=== PATIENT | male | born 1995 | race Caucasian/White ===

== ENCOUNTER 2017-02-10 18:18 | Emergency (ER) | payer BC, MEDICAID ==
--- NOTE | 2017-02-10 19:26 | RAD ---
HISTORY: Chest wall mass COMPARISONS: None TECHNIQUE: Multiple contiguous axial CT scans of the chest were obtained without intravenous contrast. Coronal and sagittal multiplanar reformations are also submitted for review. FINDINGS: The study is limited by the lack of intravenous contrast. This limits evaluation of the solid organs and vasculature. NECK AND THYROID: The lower neck and thyroid are unremarkable. CHEST WALL: There is no lower cervical, axillary, or supraclavicular lymphadenopathy by size criteria. HEART AND PERICARDIUM: The heart is unremarkable. AORTA AND PULMONARY VASCULATURE: The aorta and pulmonary vasculature are normal. MEDIASTINUM: There is no mediastinal lymphadenopathy by size criteria. ANDI: There is no hilar lymphadenopathy by size criteria. AIRWAY AND ESOPHAGUS: The airway is unremarkable, without endobronchial filling defect. The esophagus is grossly normal. LUNG PARENCHYMA: The lungs are clear. PLEURA: There is a trace right pleural effusion UPPER ABDOMEN: There is mild bilateral pelviectasis BONES AND SOFT TISSUES: There is mild scoliotic curvature of the spine. There is a pectus carinatum deformity with acute angulation of the lower sternum which may be posttraumatic versus congenital. There is no appreciable soft tissue mass of the anterior chest. OTHER: None. IMPRESSION: 1. PECTUS CARINATUM DEFORMITY WITH ACUTE ANGULATION OF THE LOWER STERNUM WHICH MAY BE REMOTE POST TRAUMATIC VERSUS CONGENITAL IN NATURE. NO SOFT TISSUE MASS OF THE ANTERIOR CHEST WALL. A NEGATIVE REPORT SHOULD NOT PRECLUDE OR DELAY THE EVALUATION OF A CLINICALLY SUSPICIOUS PALPABLE ABNORMALITY 2. MILD BILATERAL HYDRONEPHROSIS. 3. TRACE RIGHT PLEURAL EFFUSION.
--- NOTE | 2017-02-10 20:04 | ED ---
Victor Hugo Oates Adam, scribed for Caitlyn Painter MD on 02/10/17 at 1844 . Complex/Multi-Sys Presentation - HPI Summary HPI Summary: Pt is a 21 year old male presenting with AMS and an increased mass on his chest. The pt is autistic and nonverbal and the hx was obtained from the caretakers from his skilled nursing. They state that the pt has a lump protruding from his chest that is usually there but is protruding more than usual. They also state that the pt is acting "calmer than usual." Negative tobacco/alcohol use. - History Of Current Complaint Chief Complaint: EDHypertension Time Seen by Provider: 02/10/17 18:24 Hx Obtained From: Family/Commercial Census Taker - Caretakers Hx From Patient Unobtainable Due To: Other - Level 5 Caveat due to autistic patient Onset/Duration: Gradual Onset, Lasting Hours, Still Present Timing: Constant Severity Currently: Moderate Severity Initially: Moderate Character: Unable To Describe - Patient is nonverbal Aggravating Factor(s): Unknown Alleviating Factor(s): Nothing Associated Signs And Symptoms: Positive: Other - Mass over ribcage. Patient acting "calmer than usual." PMH/Surg Hx/FS Hx/Imm Hx Psychiatric History: Reports: Hx Autism Infectious Disease History: Denies: Traveled Outside the [place] in Last 30 Days - Family History Known Family History: Positive: Unknown - Level 5 Caveat due to autism - Social History Occupation: Disabled Lives: [facility] Alcohol Use: None Hx Substance Use: No Substance Use Type: Reports: None Hx Tobacco Use: No Smoking Status (MU): Never Smoked Tobacco Review of Systems Positive: Other - Mass over ribcage Psychological: Other - Acting "calmer than usual" (per fuselage framer) All Other Systems Reviewed And Are Negative: No - Comments Additional Review of Systems Comments: Level 5 Caveat due to autistic patient. Physical Exam Triage Information Reviewed: Yes Vital Signs On Initial Exam: Initial Vitals Temp Pulse Resp BP Pulse Ox 98.3 F 76 18 140/106 97 02/10/17 18:21 02/10/17 18:21 02/10/17 18:21 02/10/17 18:21 02/10/17 18:21 Vital Signs Reviewed: Yes Completion Of Physical Exam Limited Due To: Level 5 - Autism Appearance: Positive: Well-Appearing, No Pain Distress Skin: Positive: Warm, Skin Color Reflects Adequate Perfusion, Dry Eyes: Positive: EOMI, AYAKA ENT: Positive: Pharynx normal, TMs normal Neck: Positive: Supple, Nontender Respiratory/Lung Sounds: Positive: Clear to Auscultation, Breath Sounds Present. Negative: Rales, Rhonchi, Wheezes Cardiovascular: Positive: RRR. Negative: Murmur, Rub Abdomen Description: Positive: Nontender, Soft. Negative: Distended, Guarding Bowel Sounds: Positive: Present Musculoskeletal: Positive: Strength/ROM Intact, Other - 9 cm x 4 cm mass over the ribcage, just medial to the left nipple at the height of the nipple.. Negative: Edema Left, Edema Right Neurological: Positive: Other - Autistic Psychiatric: Positive: Affect/Mood Appropriate Diagnostics - Vital Signs Vital Signs Temp Pulse Resp BP Pulse Ox 02/10/17 18:21 98.3 F 76 18 140/106 97 - Laboratory Lab Statement: Any lab studies that have been ordered have been reviewed, and results considered in the medical decision making process. - CT CHEST CT Interpretation Completed By: Radiologist - IMPRESSION: 1. PECTUS CARINATUM DEFORMITY WITH ACUTE ANGULATION OF THE LOWER STERNUM WHICH MAY BE REMOTE POST TRAUMATIC VERSUS CONGENITAL IN NATURE. NO SOFT TISSUE MASS OF THE ANTERIOR CHEST WALL. A NEGATIVE REPORT SHOULD NOT PRECLUDE OR DELAY THE EVALUATION OF A CLINICALLY SUSPICIOUS PALPABLE ABNORMALITY 2. MILD BILATERAL HYDRONEPHROSIS. 3. TRACE RIGHT PLEURAL EFFUSION. Complex Multi-Symp Course/Dx Course Of Treatment: 19:56 - Bilateral hydronephrosis is found. Waiting on labs and urine. Patient will be signed out to Dr. Maya. - Diagnoses Provider Diagnoses: Pectus carinatum Discharge - Discharge Plan Condition: Stable Disposition: OTHER Discharge Disposition Comment: Sign out to Dr. Maya, pending labs and urine. Referrals: Sissy TODD,Blayne Waller [Primary Care Provider] - Additional Instructions: Follow up with Dr. Sheehan this week. The documentation as recorded by the Victor Hugo stoner Adam accurately reflects the service I personally performed and the decisions made by me, Caitlyn Painter MD.
[2017-02-10 20:54] LABS: Hematocrit 40 % (42-52); Mean Corpuscular HGB Conc 35 g/dl (31-36); Mean Corpuscular Hemoglobin 30 pg (27-31); Mean Corpuscular Volume 87 fL (80-94); Mean Platelet Volume 9 um3 (7.4-10.4); Red Blood Count 4.64 10^6/ul (4.0-5.4); Red Cell Distribution Width 12 % (10.5-15); White Blood Count 8.7 10^3/ul (3.5-10.8)
[2017-02-10 20:57] LABS: Urine Bilirubin Negative (Negative); Urine Glucose Negative (Negative); Urine Nitrite Negative (Negative)
[2017-02-10 21:06] LABS: Albumin 4.6 g/dL (3.2-5.2); BUN/Creatinine Ratio 10.8 (8-20); Calcium 10.2 mg/dL (8.6-10.3); EGFR African American 195.8 (>60); EGFR Non-African American 152.2 (>60); Globulin 2.7 g/dL (2-4); Potassium 3.9 mmol/L (3.5-5.0); Total Bilirubin 0.6 mg/dL (0.2-1.0); Total Protein 7.3 g/dL (6.4-8.9)
[2017-02-10 21:46] VITALS: BP 156/110
== END 2017-02-10 21:44 | disposition home or self-care (01) ==
LOC: ED 18:18
DX: Q67.7 Pectus carinatum (principal); N13.30 Unspecified hydronephrosis; J90 Pleural effusion, not elsewhere classified; R41.82 Altered mental status, unspecified; R07.9 Chest pain, unspecified; F84.0 Autistic disorder
CPT/HCPCS: 36415; 71250; 80053; 81003; 85025; 99282

== ENCOUNTER 2017-02-17 01:33 | Inpatient (IN) | payer BC, MEDICAID ==
[2017-02-17 02:02] LABS: Comments Flag Yes; Hematocrit 43 % (42-52); Hemoglobin 14.4 g/dl (14.0-18.0); Mean Corpuscular HGB Conc 34 g/dl (31-36); Mean Corpuscular Hemoglobin 30 pg (27-31); Mean Corpuscular Volume 89 fL (80-94); Mean Platelet Volume 8 um3 (7.4-10.4); Red Blood Count 4.76 10^6/ul (4.0-5.4); Red Cell Distribution Width 13 % (10.5-15)
[2017-02-17 02:03] LABS: Add Diff/Slide Review? Slide Review Added
--- NOTE | 2017-02-17 02:03 | ED ---
Julianne Oates Erika, scribed for Jac Maya MD on 02/17/17 at 0158 . Neurological HPI - HPI Summary HPI Summary: A 21 y/o M presents to the ED with a CC of seizures. Per EMS, pt lives at [facility]. They state pt fell out of bed and had 3 witnessed seizures tonight, and has a Hx seizures. EMS gave versed 5 mg. Patient is non-verbal with severe autism. LEVEL 5 CAVEAT - NON-VERBAL. - History of Current Complaint Stated Complaint: SEIZURE Time Seen by Provider: 02/17/17 01:34 Hx Obtained From: EMS Hx From Patient Unobtainable Due To: Other - Pt non-verbal - severe autism Onset/Duration: Sudden Onset Number of Seizures: 3 - Allergy/Home Medications Allergies/Adverse Reactions: Allergies Allergy/AdvReac Type Severity Reaction Status Date / Time Clarithromycin [From Biaxin] Allergy Unknown Verified 02/17/17 02:05 Reaction Details Home Medications: Home Medications Acetaminophen [Tylenol] 650 mg PO Q4HR PRN 02/17/17 [History Confirmed 02/17/17] Cetirizine HCl [Zyrtec Allergy 10 MG TAB] 10 mg PO BEDTIME 02/17/17 [History Confirmed 02/17/17] Clonidine HCl [Catapres 0.2 MG TAB] 0.2 mg PO BID 02/17/17 [History Confirmed ] Divalproex Sodium [Depakote Sprinkles] 500 mg PO TID 02/17/17 [History Confirmed 02/17/17] Lisinopril TAB* [Prinivil TAB*] 10 mg PO DAILY 02/17/17 [History Confirmed 02/17] Polyethylene Glycol 3350* [Miralax*] 17 gm PO DAILY PRN 02/17/17 [History Confirmed 02/17/17] busPIRone TAB* [Buspar TAB*] 10 mg PO TID 02/17/17 [History Confirmed 02/17/17] risperiDONE TAB* [Risperdal*] 1 mg PO BID 02/17/17 [History Confirmed 02/17/17] PMH/Surg Hx/FS Hx/Imm Hx Cardiovascular History: Reports: Hx Hypertension EENT History: Reports: Other - Allergic rhinitis Neurological History: Reports: Hx Seizures Psychiatric History: Reports: Hx Autism - Family History Family History: LEVEL 5 CAVEAT - NON-VERBAL SECONDARY TO AUTISM - Social History Occupation: Disabled Lives: At [facility] [employer] Alcohol Use: None Hx Substance Use: No Substance Use Type: Reports: None Hx Tobacco Use: No Smoking Status (MU): Never Smoked Tobacco Review of Systems - ROS Summary Review of Systems Summary: LEVEL 5 CAVEAT - NON-VERBAL SECONDARY TO AUTISM Neurological: Other - Seizures All Other Systems Reviewed And Are Negative: No Physical Exam Triage Information Reviewed: Yes Vital Signs On Initial Exam: Temp Pulse Resp BP Pulse Ox 99.2 F 104 23 144/84 94 02/17/17 01:35 02/17/17 01:35 02/17/17 01:35 02/17/17 01:35 02/17/17 01:35 Vital Signs Reviewed: Yes Appearance: Positive: Ill-Appearing - non verbal, post ictal Head/Face: Positive: Normal Head/Face Inspection Eyes: Positive: AYAKA Respiratory/Lung Sounds: Positive: Clear to Auscultation, Breath Sounds Present Cardiovascular: Positive: RRR Abdomen Description: Positive: Soft Bowel Sounds: Positive: Present Diagnostics - Vital Signs Vital Signs Temp Pulse Resp BP Pulse Ox 02/17/17 01:35 99.2 F 104 23 144/84 94 - Laboratory Result Diagrams: 02/17/17 01:50 02/17/17 01:50 Lab Statement: Any lab studies that have been ordered have been reviewed, and results considered in the medical decision making process. - Radiology CXR Xray Interpretation: No Acute Changes Radiology Interpretation Completed By: ED Physician - EKG 01:37 Cardiac Rate: Tachycardia - at 107 bpm EKG Rhythm: Sinus Tachycardia Re-Evaluation - Re-Evaluation First Eval Re-Evaluation Time: 06:10 Comment: Pt is febrile. Ordered CXR. UA to be obtained. Course/Dx - Course Assessment/Plan: A 21 y/o M presents to the ED with a CC of 3 seizures. Patient is non-verbal, so history is provided by EMS. Patient is observed in the ED and does not have another seizure. Patient is given Trileptal per Dr. Garcia's recommendation. Pt has a fever in the ED, so is given Tylenol and CXR and UA must be obtained. CXR is negative. UA is pending at this time. Patient is signed out pending UA and disposition. - Diagnoses Provider Diagnoses: Seizure disorder, Fever, Post-ictal state - Physician Notifications Discussed Care of Patient With: Dr. Garcia (neurology) at 03:18 - discussed patient's case. Recommends adding trileptal. Discharge - Discharge Plan Condition: Stable Disposition: ADMITTED TO [facility] Discharge Disposition Comment: Signed out to Dr. Juarez pending UA and disposition The documentation as recorded by the Julianne stoner Erika accurately reflects the service I personally performed and the decisions made by me, Jac Maya MD.
[2017-02-17 02:19] LABS: Albumin 4.7 g/dL (3.2-5.2); BUN/Creatinine Ratio 11.6 (8-20); EGFR African American 182.7 (>60); EGFR Non-African American 142.1 (>60); Globulin 2.9 g/dL (2-4); Magnesium 1.7 mg/dL (1.9-2.7); Potassium 3.5 mmol/L (3.5-5.0); Total Bilirubin 0.3 mg/dL (0.2-1.0); Total Protein 7.6 g/dL (6.4-8.9)
[2017-02-17] MEDS ORDERED: Acetaminophen SUPP* 650 MG SUPP PR ONE (05:03)
[2017-02-17] MEDS ORDERED: OXcarbazepine TAB(*) 300 MG PO ONE (06:12)
--- NOTE | 2017-02-17 07:53 | RAD ---
Indication: Fever. 2 views of the chest including dual energy PA views demonstrate no mediastinal shift. Heart is normal size and configuration. Lung lou demonstrate no pleural fluid, pneumonia or pneumothorax. IMPRESSION: No active cardiopulmonary disease is noted.
[2017-02-17] MEDS ORDERED: Ibuprofen TAB* 600 MG PO ONE (08:11)
[2017-02-17 08:21] LABS: Urine Bacteria Absent (Absent); Urine Bilirubin Negative (Negative); Urine Glucose 1+(50 mg/dL) (Negative); Urine Nitrite Negative (Negative)
[2017-02-17] MEDS ORDERED: Ibuprofen ADULT LIQ* 600 MG/30 ML UDC PO ONE (08:51)
[2017-02-17] MEDS ORDERED: NS 0.9% 1000 ML* 3,000 ML IV ONE (09:23)
--- NOTE | 2017-02-17 10:35 | ED ---
Victor Hugo Oates Adam, scribed for Ovidio Juarez MD on 02/17/17 at 0928 . Progress - Progress Note Progress Note: This patient was signed out to me by Dr. Maya at 07:00. UA was pending. Pt had 3 or 4 seizures at his [place] [facility]. He is on Depakote. Level is elevated. Case was discussed with Dr. Garcia. Another agent (apparently trileptal) was started. Pt remained post-ictal during hospital stay and developed a fever. Chest X-Ray was read as normal. Urine was clean. I evaluated the pt at 09:05 with the pt's parents. They were concerned because he was not acting normal. They were also concerned about drainage from the pt's eyes. Physical exam: Patient is uncooperative, appears post-ictal, restless. Pupils equal, eyes injected, clear drainage from eyes. No rashes. Heart regular. Lungs clear. Course: Contacted hospitalist for possible admission. Discussed care of patient with Sivakumar Peres (hospitalist) at 09:20. Patient will be admitted. Re-Evaluation - Re-Evaluation First Eval Re-Evaluation Time: 06:10 Comment: Pt is febrile. Ordered CXR. UA to be obtained. Course/Dx - Diagnoses Provider Diagnoses: Seizure disorder, Fever, Post-ictal state The documentation as recorded by the Victor Hugo stoner Adam accurately reflects the service I personally performed and the decisions made by me, Ovidio Juarez MD.
[2017-02-17] MEDS ORDERED: Polyethylene Glycol 3350* 17 GM PACKET PO PRN (11:17)
--- NOTE | 2017-02-17 11:49 | ADMNOTE ---
Subjective Date of Service: 02/17/17 Interval History: ADMISSION HISTORY AND PHYSICAL EXAM: Allergies Allergy/AdvReac Type Severity Reaction Status Date / Time Clarithromycin [From Biaxin] Allergy Unknown Verified 02/17/17 02:05 Reaction Details Home Medications Medication Instructions Recorded Confirmed Type Acetaminophen [Tylenol] 650 mg PO Q4HR PRN 02/17/17 02/17/17 History Cetirizine HCl [Zyrtec Allergy 10 10 mg PO BEDTIME 02/17/17 02/17/17 History MG TAB] Clonidine HCl [Catapres 0.2 MG TAB] 0.2 mg PO BID 02/17/17 02/17/17 History Divalproex Sodium [Depakote 500 mg PO TID 02/17/17 02/17/17 History Sprinkles] Lisinopril TAB* [Prinivil TAB*] 10 mg PO DAILY 02/17/17 02/17/17 History Oxcarbazepine [Trileptal 300 mg 300 mg PO BID PRN #30 tab 02/17/17 Rx tab] Polyethylene Glycol 3350* 17 gm PO DAILY PRN 02/17/17 02/17/17 History [Miralax*] busPIRone TAB* [Buspar TAB*] 10 mg PO TID 02/17/17 02/17/17 History risperiDONE TAB* [Risperdal*] 1 mg PO BID 02/17/17 02/17/17 History HPI: The patient had several [facility] at his [facility] and was sent to the ED by ambulance. He has had seizures for years. For the past 2 weeks he seems to be uncomfortable. He is non-verbal. He rubs one leg on the other, mostly on the L leg. He had a CT scan at [facility] recently on "his side". He sees a neurologist in [place] and a PCP in [place], Dr. Kaur. He is losing weight, unknown amount. He developed in the past few weeks polydipsia, over a gallon at a time, using the bathroom faucet. Family History: Findings - DM. Social History: Findings - Lives in [facility]. Both parents are SDM's. No alcohol or tobacco use. Past Medical History: Findings - BL IHR age 3 months. Autism. Seizures. Pilonidal cyst removed. Review of Systems - Measurements Intake and Output: Intake and Output Last 24 Hours 02/15/17 02/16/17 02/17/17 02/18/17 06:59 06:59 06:59 06:59 Weight 240 lb Objective Active Medications: Buspirone HCl (Buspar Tab*) 10 mg PO TID [facility] Divalproex Sodium (Depakote Sprinkle Cap*) 500 mg PO TID [facility] Sodium Chloride (Ns 0.9% 1000 Ml*) 3,000 mls @ 1,000 mls/hr IV ED ONCE ONE Stop: 02/17/17 12:22 Last Admin: 02/17/17 09:35 Dose: 1,000 mls/hr Piperacillin Sod/Tazobactam Sod (Zosyn 3.375 Gm In Ns Premix*) 3.375 gm in 100 mls @ 200 mls/hr IVPB .ONCE-THEN Rx DOSING [facility] Lisinopril (Prinivil Tab*) 10 mg PO DAILY [facility] Non-Formulary Medication (Clonidine Hcl [Catapres 0.2 Mg Tab]) 0.1 mg PO BID [facility] Non-Formulary Medication (Cetirizine Hcl [Zyrtec Allergy 10 Mg Tab]) 10 mg PO BEDTIME [facility] Oxcarbazepine (Trileptal Tab(*)) 300 mg PO BID [facility] Polyethylene Glycol/Electrolytes (Miralax*) 17 gm PO DAILY PRN PRN Reason: CONSTIPATION Risperidone (Risperdal*) 1 mg PO BID [facility] Vital Signs 02/17/17 02/17/17 02/17/17 01:35 01:45 02:00 Temperature 99.2 F 100.0 F Pulse Rate 104 82 Respiratory 23 14 Rate Blood Pressure 144/84 151/82 151/82 (mmHg) O2 Sat by Pulse 94 97 Oximetry 02/17/17 02/17/17 02/17/17 02:01 02:30 03:00 Temperature Pulse Rate 96 97 86 Respiratory 15 18 14 Rate Blood Pressure 133/79 120/89 (mmHg) O2 Sat by Pulse 93 97 96 Oximetry 02/17/17 02/17/17 02/17/17 03:30 04:00 04:30 Temperature Pulse Rate 85 86 89 Respiratory 13 15 7 Rate Blood Pressure 136/90 115/73 110/71 (mmHg) O2 Sat by Pulse 96 94 95 Oximetry 02/17/17 02/17/17 02/17/17 05:00 05:30 06:00 Temperature 102.9 F 100.9 F Pulse Rate 89 90 98 Respiratory 15 16 Rate Blood Pressure 120/71 139/76 116/64 (mmHg) O2 Sat by Pulse 96 95 96 Oximetry 02/17/17 02/17/17 07:00 08:00 Temperature 101.0 F Pulse Rate 91 Respiratory 15 Rate Blood Pressure (mmHg) O2 Sat by Pulse 95 Oximetry Oxygen Devices in Use Now: None Appearance: Alert, extremely brief eye contact. Very restless, sits up, lies down, turns, rubs one leg on the other, never stops. No vocalizations. Eyes tearing at times. Eyes: No Scleral Icterus Neck: NL Appearance and Movements; NL JVP, No Thyroid Enlargement, Masses Respiratory: Symmetrical Chest Expansion and Respiratory Effort, Clear to Auscultation, Clear to Percussion Cardiovascular: NL Sounds; No Murmurs; No JVD, RRR, No Edema, - Abdominal: NL Sounds; No Tenderness; No Distention, No Hepatosplenomegaly, - - No tenderness to deep palpation. Extremities: No Edema, No Clubbing, Cyanosis Skin: No Nodules or Sclerosis, - - minor old contusion R lower leg Neurological: NL Sensation, NL Muscle Strength and Tone, - - Non-verbal, ignores his parents and me. No tremor. Very restless--see appearance. Result Diagrams: 02/17/17 01:50 02/17/17 01:50 Microbiology and Other Data: Microbiology 02/17/17 11:05 Influenza Types A,B Antigen (CARLOS) - Final Nasal Specimen received for Influenza A/B Molecular testing Assess/Plan/Problems-Billing Assessment: - Patient Problems (1) Seizure Current Visit: Yes Status: Acute Code(s): R56.9 - UNSPECIFIED CONVULSIONS SNOMED Code(s): 42834597 Comment: Discussed with Dr. Garcia. Add oxcarbenzapine, first dose AM 02/17, continue same dose valproic acid. (2) Fever Current Visit: Yes Status: Acute Code(s): R50.9 - FEVER, UNSPECIFIED SNOMED Code(s): 828217478 Comment: Note increase in WBC c/w 02/10/17. ??? sinusitis. Empiric pip/chloe for 2 days. Blood C&S x 2 sent. Consider oral amox/clav after 2 days. Further testing likely would require sedation. (3) Polydipsia Current Visit: Yes Status: Acute Code(s): R63.1 - POLYDIPSIA SNOMED Code(s ): 41084140 Comment: Recent change. So far no hyponatremia. As this may be evolivng, would suggest weekly BMP for a few weeks after discharge. (4) Autism Current Visit: Yes Status: Acute Code(s): F84.0 - AUTISTIC DISORDER SNOMED Code(s): 419339577 Comment: Dx noted, per parents. (5) Hyperglycemia Current Visit: Yes Status: Acute Code(s): R73.9 - HYPERGLYCEMIA, UNSPECIFIED SNOMED Code(s): 40922089 Comment: Possibly related to stress. FS glucose on arrival at 4N 99, will check bid.
[2017-02-17 11:54] LABS: TSH (Thyroid Stimulating Horm) 3.1 mcIU/mL (0.34-5.60)
[2017-02-17] MEDS ORDERED: Piperac/Tazob 3.375 gm in NS* 3.375 GM/100 ML BAG IVPB ONE (13:00)
[2017-02-17] MEDS: busPIRone TAB* 10 MG PO SCH ×2 (14:25→21:21)
[2017-02-17] MEDS: Divalproex Sprinkle CAP* 125 MG PO SCH ×2 (14:26→21:28)
[2017-02-17] MEDS: Acetaminophen TAB* 325 MG PO SCH ×2 (16:31→21:19)
[2017-02-17] MEDS: Naphazoline/Pheniramine OPTH* 5 ML BTL BOTH EYES SCH ×2 (16:31→21:15)
[2017-02-17] MEDS: Piperac/Tazob 3.375 gm in NS* 3.375 GM/100 ML BAG IVPB SCH (17:40)
[2017-02-17] MEDS: Cetirizine* 10 MG TAB PO SCH (21:17)
[2017-02-17] MEDS: OXcarbazepine TAB(*) 300 MG PO SCH (21:18)
[2017-02-17] MEDS: cloNIDine TAB* 0.1 MG PO SCH (21:18)
[2017-02-17] MEDS: risperiDONE TAB* 1 MG PO SCH (21:21)
[2017-02-18] MEDS: Piperac/Tazob 3.375 gm in NS* 3.375 GM/100 ML BAG IVPB SCH ×3 (02:33→18:02)
[2017-02-18] MEDS: cloNIDine TAB* 0.1 MG PO SCH ×2 (08:15→19:41)
[2017-02-18] MEDS: busPIRone TAB* 10 MG PO SCH ×3 (08:15→19:41)
[2017-02-18] MEDS: OXcarbazepine TAB(*) 300 MG PO SCH ×2 (08:15→19:41)
[2017-02-18] MEDS: Lisinopril TAB* 10 MG PO SCH (08:15)
[2017-02-18] MEDS: Naphazoline/Pheniramine OPTH* 5 ML BTL BOTH EYES SCH ×4 (08:15→19:41)
[2017-02-18] MEDS: risperiDONE TAB* 1 MG PO SCH ×2 (08:15→19:41)
[2017-02-18] MEDS: Divalproex Sprinkle CAP* 125 MG PO SCH ×2 (08:15→13:35)
[2017-02-18] MEDS: Acetaminophen TAB* 325 MG PO SCH (08:15)
[2017-02-18] MEDS ORDERED: Acetaminophen TAB* 325 MG PO PRN (08:52)
--- NOTE | 2017-02-18 09:29 | PN ---
Subjective Date of Service: 02/18/17 Interval History: Seen and examined with FLDDSO aid at bedside. She thinks he is closer to baseline today except more sleepy. He does not appear in pain. He can communicate several words including pain using sign language and has not done so. Family History: Findings - DM. Social History: Findings - Lives in shelter. Both parents are SDM's. No alcohol or tobacco use. Past Medical History: Findings - BL IHR age 3 months. Autism. Seizures. Pilonidal cyst removed. Objective Active Medications: Acetaminophen (Tylenol Tab*) 975 mg PO TID PRN PRN Reason: FEVER Buspirone HCl (Buspar Tab*) 10 mg PO TID [facility] Last Admin: 02/18/17 08:15 Dose: 10 mg Cetirizine HCl (Zyrtec*) 10 mg PO BEDTIME [facility] Last Admin: 02/17/17 21:17 Dose: 10 mg Clonidine HCl (Catapres Tab*) 0.1 mg PO BID [facility] Last Admin: 02/18/17 08:15 Dose: 0.1 mg Divalproex Sodium (Depakote Sprinkle Cap*) 500 mg PO TID [facility] Last Admin: 02/18/17 08:15 Dose: 500 mg Piperacillin Sod/Tazobactam Sod (Zosyn 3.375 Gm In Ns Premix*) 3.375 gm in 100 mls @ 25 mls/hr IVPB Q8H [facility] Last Admin: 02/18/17 09:08 Dose: 25 mls/hr Lisinopril (Prinivil Tab*) 10 mg PO DAILY [facility] Last Admin: 02/18/17 08:15 Dose: 10 mg Naphazoline HCl/Pheniramine Maleate (Naphcon-A*) 1 drop BOTH EYES QID [facility] Last Admin: 02/18/17 08:15 Dose: Not Given Oxcarbazepine (Trileptal Tab(*)) 300 mg PO BID [facility] Last Admin: 02/18/17 08:15 Dose: 300 mg Polyethylene Glycol/Electrolytes (Miralax*) 17 gm PO DAILY PRN PRN Reason: CONSTIPATION Risperidone (Risperdal*) 1 mg PO BID [facility] Last Admin: 02/18/17 08:15 Dose: 1 mg Vital Signs 02/17/17 02/17/17 02/17/17 11:35 12:34 12:55 Temperature 100.9 F 99.4 F Pulse Rate 99 103 97 Respiratory 16 20 16 Rate Blood Pressure 136/81 166/78 135/75 (mmHg) O2 Sat by Pulse 97 97 96 Oximetry 02/17/17 02/17/17 02/17/17 13:17 15:44 19:30 Temperature 99.4 F 99.5 F 100.0 F Pulse Rate 97 101 101 Respiratory 16 20 16 Rate Blood Pressure 135/75 149/79 149/78 (mmHg) O2 Sat by Pulse 99 96 Oximetry 02/17/17 02/17/17 02/18/17 20:00 23:37 06:14 Temperature 97.5 F Pulse Rate 93 69 Respiratory 16 16 Rate Blood Pressure 184/100 147/87 (mmHg) O2 Sat by Pulse 97 Oximetry 02/18/17 02/18/17 02/18/17 06:18 07:56 08:43 Temperature 97.7 F Pulse Rate 99 65 Respiratory 16 16 18 Rate Blood Pressure 147/87 148/87 (mmHg) O2 Sat by Pulse 95 Oximetry Oxygen Devices in Use Now: None Appearance: NAD, wakes easily, generally diaphoretic Eyes: No Scleral Icterus, PERRLA, - - erythema has cleared Ears/Nose/Mouth/Throat: NL Teeth, Lips, Gums, Clear Oropharnyx, Mucous Membranes Moist Neck: NL Appearance and Movements; NL JVP, Trachea Midline Respiratory: Symmetrical Chest Expansion and Respiratory Effort, Clear to Auscultation Cardiovascular: NL Sounds; No Murmurs; No JVD, RRR Abdominal: NL Sounds; No Tenderness; No Distention, No Hepatosplenomegaly, - - hard stool palpable Lymphatic: No Cervical Adenopathy Extremities: No Edema, No Clubbing, Cyanosis Skin: No Rash or Ulcers Neurological: - - Sits up when asked, follows simple commands, non verbal, falls asleep during exam Result Diagrams: 02/17/17 01:50 02/17/17 01:50 Microbiology and Other Data: Microbiology 02/17/17 11:05 Influenza Types A,B Antigen (CARLOS) - Final Nasal Specimen received for Influenza A/B Molecular testing Assess/Plan/Problems-Billing Assessment: 21 M h/o severe autism p/w seizures found with fevers and elevated valproate levels - Patient Problems (1) Seizure Comment: Oxcarbenzapine added after d/w neurology - first dose AM 02/17 - valproic acid continued at same dose Valproic acid lvl elevated - may be contributing to increased seizures and/or lethargy. Will check ammonia lvl this AM (2) Fever Comment: Elevated WBC. Started on empiric pip/chloe on admission. Repeat CBC this AM. Change standing tylenol to PRN to follow fever curve. Wait 48 hrs for final blood cx Noted weight loss by DDSO 02/10 noted mild b/l hydronephrosis. Check repeat US kidney/bladder (3) Autism Comment: Dx noted, per parents. (4) Hypertension Comment: clonidine, lisinopril (5) DVT prophylaxis Comment: low risk
[2017-02-18 10:16] LABS: Hematocrit 38 % (42-52); Mean Corpuscular HGB Conc 34 g/dl (31-36); Mean Corpuscular Hemoglobin 30 pg (27-31); Mean Corpuscular Volume 88 fL (80-94); Mean Platelet Volume 8 um3 (7.4-10.4); Red Cell Distribution Width 13 % (10.5-15); White Blood Count 5.6 10^3/ul (3.5-10.8)
[2017-02-18 10:33] LABS: BUN/Creatinine Ratio 12.3 (8-20); Calcium 9.3 mg/dL (8.6-10.3); EGFR African American 171.2 (>60); EGFR Non-African American 133.1 (>60); Potassium 3.8 mmol/L (3.5-5.0)
--- NOTE | 2017-02-18 10:38 | RAD ---
INDICATION: Mild hydronephrosis. COMPARISON: Comparison is made with a prior CT of the chest from February 10, 2017. TECHNIQUE: Multiple real-time images of the kidneys and urinary bladder were obtained. FINDINGS: The kidneys are normal in size shape and echogenicity. The right kidney measured 13.7 x 6.8 x 5.4 cm and the left kidney measured 13.2 x 6.2 x 5.6 cm. No focal renal abnormality is seen. There is mild caliectasis present within the left kidney. The right kidney appears to be within normal limits. The bladder is normal in contour. No intraluminal abnormalities are seen. No bladder wall thickening is noted. A right ureteral jet was seen. A left ureteral jet was not seen. The prostate gland was not well visualized. The patient's bladder volume during the study was 734 mL. The patient would not void at the end of the study. The spleen is borderline enlarged 13.7 x 5.3 x 9.9 cm. IMPRESSION: 1. DISTENDED URINARY BLADDER AND MILD LEFT RENAL CALIECTASIS. 2. BORDERLINE ENLARGEMENT OF THE SPLEEN.
[2017-02-18] MEDS: NS 0.9% 1000 ML* 1,000 ML IV SCH ×2 (16:03→23:47)
[2017-02-18] MEDS: LACTULOSE* 30 ML UDC PO SCH ×2 (16:03→19:39)
[2017-02-18] MEDS: Cetirizine* 10 MG TAB PO SCH (19:40)
[2017-02-19] MEDS: Piperac/Tazob 3.375 gm in NS* 3.375 GM/100 ML BAG IVPB SCH ×3 (02:10→18:20)
[2017-02-19 06:55] LABS: BUN/Creatinine Ratio 15.3 (8-20); Calcium 8.8 mg/dL (8.6-10.3); EGFR African American 218.9 (>60); EGFR Non-African American 170.2 (>60); Potassium 3.8 mmol/L (3.5-5.0)
[2017-02-19] MEDS: LACTULOSE* 30 ML UDC PO SCH ×3 (09:09→19:39)
[2017-02-19] MEDS: OXcarbazepine TAB(*) 300 MG PO SCH ×2 (09:09→19:39)
[2017-02-19] MEDS: Divalproex Sprinkle CAP* 125 MG PO SCH ×2 (09:11→19:39)
[2017-02-19] MEDS: cloNIDine TAB* 0.1 MG PO SCH ×2 (09:12→19:39)
[2017-02-19] MEDS: Lisinopril TAB* 10 MG PO SCH (09:12)
[2017-02-19] MEDS: Naphazoline/Pheniramine OPTH* 5 ML BTL BOTH EYES SCH ×4 (09:12→19:38)
[2017-02-19] MEDS: busPIRone TAB* 10 MG PO SCH ×3 (09:12→19:39)
[2017-02-19] MEDS: risperiDONE TAB* 1 MG PO SCH ×2 (09:12→19:39)
[2017-02-19] MEDS ORDERED: NS 0.9% 1000 ML* 1,000 ML IV SCH (13:45)
--- NOTE | 2017-02-19 16:39 | PN ---
Subjective Date of Service: 02/19/17 Interval History: Seen and examined with mother and ddso internet marketing assistant present Pt wakes up to eat but has been more sleepy than baseline in the hospital today Yesterday he was more agitated Eating well Family History: Findings - DM. Social History: Findings - Lives in prison. Both parents are SDM's. No alcohol or tobacco use. Past Medical History: Findings - BL IHR age 3 months. Autism. Seizures. Pilonidal cyst removed. Objective Active Medications: Acetaminophen (Tylenol Tab*) 975 mg PO TID PRN PRN Reason: FEVER Buspirone HCl (Buspar Tab*) 10 mg PO TID [facility] Last Admin: 02/19/17 15:08 Dose: 10 mg Cetirizine HCl (Zyrtec*) 10 mg PO BEDTIME [facility] Last Admin: 02/18/17 19:40 Dose: 10 mg Clonidine HCl (Catapres Tab*) 0.1 mg PO BID [facility] Last Admin: 02/19/17 09:12 Dose: 0.1 mg Divalproex Sodium (Depakote Sprinkle Cap*) 500 mg PO BID [facility] Last Admin: 02/19/17 09:11 Dose: 500 mg Piperacillin Sod/Tazobactam Sod (Zosyn 3.375 Gm In Ns Premix*) 3.375 gm in 100 mls @ 25 mls/hr IVPB Q8H [facility] Last Admin: 02/19/17 11:18 Dose: 25 mls/hr Sodium Chloride (Ns 0.9% 1000 Ml*) 1,000 mls @ 150 mls/hr IV PER RATE [facility] Stop: 02/19/17 22:09 Last Admin: 02/18/17 23:47 Dose: 150 mls/hr Sodium Chloride (Ns 0.9% 1000 Ml*) 1,000 mls @ 150 mls/hr IV PER RATE [facility] Stop: 02/20/17 20:24 Lactulose (Lactulose*) 30 ml PO TID [facility] Last Admin: 02/19/17 15:09 Dose: 30 ml Lisinopril (Prinivil Tab*) 10 mg PO DAILY [facility] Last Admin: 02/19/17 09:12 Dose: 10 mg Naphazoline HCl/Pheniramine Maleate (Naphcon-A*) 1 drop BOTH EYES QID [facility] Last Admin: 02/19/17 15:11 Dose: 1 drop Oxcarbazepine (Trileptal Tab(*)) 300 mg PO BID [facility] Last Admin: 02/19/17 09:09 Dose: 300 mg Polyethylene Glycol/Electrolytes (Miralax*) 17 gm PO DAILY PRN PRN Reason: CONSTIPATION Risperidone (Risperdal*) 1 mg PO BID [facility] Last Admin: 02/19/17 09:12 Dose: 1 mg Vital Signs 02/18/17 02/18/17 02/19/17 16:50 19:49 07:39 Temperature 98.7 F 97.5 F Pulse Rate 87 59 Respiratory 18 18 Rate Blood Pressure 149/90 142/92 (mmHg) O2 Sat by Pulse 98 97 Oximetry 02/19/17 02/19/17 02/19/17 07:48 08:00 15:53 Temperature 98.9 F Pulse Rate 92 58 Respiratory 16 18 16 Rate Blood Pressure 132/74 (mmHg) O2 Sat by Pulse 97 Oximetry Oxygen Devices in Use Now: None Appearance: NAD Eyes: No Scleral Icterus, PERRLA Ears/Nose/Mouth/Throat: Clear Oropharnyx, Mucous Membranes Moist Neck: NL Appearance and Movements; NL JVP, Trachea Midline Respiratory: Symmetrical Chest Expansion and Respiratory Effort, Clear to Auscultation Cardiovascular: RRR Abdominal: NL Sounds; No Tenderness; No Distention, No Hepatosplenomegaly Extremities: No Edema Skin: No Rash or Ulcers Neurological: - - non verbal, follows simple commands from mother "open mouth" "sit up" Result Diagrams: 02/18/17 10:06 02/19/17 06:10 Microbiology and Other Data: Microbiology 02/17/17 11:05 Influenza Types A,B Antigen (CARLOS) - Final Nasal Specimen received for Influenza A/B Molecular testing Assess/Plan/Problems-Billing Assessment: 21 M h/o severe autism p/w seizures found with fevers and elevated valproate levels - Patient Problems (1) Encephalopathy due to metabolic factor or toxin Comment: In setting of elevated ammonia Valproate lvl does not have to be elevated in order to cause increased ammonia lvl check valporate lvl tomorrow on lower dose check ammonia lvl on lactulose check abdominal film today given paucity of stool on lactulose (2) Seizure Comment: Oxcarbenzapine added after d/w neurology - first dose AM 4/3 valproic acid decreased to BID in setting of elevated ammonia lvl Valproic acid lvl elevated - may be contributing to increased seizures and/or lethargy although level was not a true trough. Check trough tomorrow morning Repeat ammonia level c/w lactulose (3) Fever Comment: Elevated WBC. Started on empiric pip/chloe on admission. Repeat CBC normalized. No additional fevers. No source identified. Possibly viral. Likely benefit from PO abx on discharge empirically Blood cx and UCx NGTD Noted weight loss by DDSO US kidney/bladder without dz although ureteral jet not seen. Post void residual 53 after ultrasound performed (4) Autism Comment: Dx noted, per parents. (5) Hypertension Comment: clonidine, lisinopril (6) DVT prophylaxis Comment: low risk Status and Disposition: Stable for d/c if ammonia improves and pt is less lethargic. Hospital stay, recent fevers and seizures likely contributing to increased lethargy as well.
--- NOTE | 2017-02-19 16:46 | RAD ---
Indication: No bowel movement. Flat and upright views of the abdomen demonstrates a loose body is intact. No dilated loops of bowel are noted. The colon is filled with stool. The psoas margins are sharp. IMPRESSION: No free air or obstruction is identified.
[2017-02-19] MEDS: Cetirizine* 10 MG TAB PO SCH (19:39)
[2017-02-20] MEDS: Piperac/Tazob 3.375 gm in NS* 3.375 GM/100 ML BAG IVPB SCH ×3 (01:57→17:39)
[2017-02-20 06:26] LABS: Hematocrit 39 % (42-52); Hemoglobin 13.5 g/dl (14.0-18.0); Mean Corpuscular HGB Conc 35 g/dl (31-36); Mean Corpuscular Hemoglobin 31 pg (27-31); Mean Corpuscular Volume 88 fL (80-94); Mean Platelet Volume 8 um3 (7.4-10.4); Red Blood Count 4.36 10^6/ul (4.0-5.4); Red Cell Distribution Width 12 % (10.5-15); White Blood Count 6.5 10^3/ul (3.5-10.8)
[2017-02-20 06:43] LABS: BUN/Creatinine Ratio 16.9 (8-20); Calcium 9.1 mg/dL (8.6-10.3); EGFR African American 195.8 (>60); EGFR Non-African American 152.2 (>60); Potassium 4.3 mmol/L (3.5-5.0)
[2017-02-20] MEDS ORDERED: NS 0.9% 1000 ML* 1,000 ML IV SCH (07:15)
--- NOTE | 2017-02-20 08:22 | PN ---
Subjective Date of Service: 02/20/17 Interval History: , Interviewed and examined patient at bedside; Discussed case with Dr. Wei ; Reviewed previous notes and radiology results; Patient more alert today tentative plan for dc with oral antibiotics Family History: Findings - DM. Social History: Findings - Lives in longterm. Both parents are SDM's. No alcohol or tobacco use. Past Medical History: Findings - BL IHR age 3 months. Autism. Seizures. Pilonidal cyst removed. Objective Active Medications: . Acetaminophen (Tylenol Tab*) 975 mg PO TID PRN PRN Reason: FEVER Buspirone HCl (Buspar Tab*) 10 mg PO TID [facility] Last Admin: 02/19/17 19:39 Dose: 10 mg Cetirizine HCl (Zyrtec*) 10 mg PO BEDTIME [facility] Last Admin: 02/19/17 19:39 Dose: 10 mg Clonidine HCl (Catapres Tab*) 0.1 mg PO BID [facility] Last Admin: 02/19/17 19:39 Dose: 0.1 mg Divalproex Sodium (Depakote Sprinkle Cap*) 500 mg PO BID [facility] Last Admin: 02/19/17 19:39 Dose: 500 mg Piperacillin Sod/Tazobactam Sod (Zosyn 3.375 Gm In Ns Premix*) 3.375 gm in 100 mls @ 25 mls/hr IVPB Q8H [facility] Last Admin: 02/20/17 01:57 Dose: 25 mls/hr Sodium Chloride (Ns 0.9% 1000 Ml*) 1,000 mls @ 150 mls/hr IV PER RATE [facility] Stop: 02/20/17 20:24 Sodium Chloride (Ns 0.9% 1000 Ml*) 1,000 mls @ 100 mls/hr IV PER RATE [facility] Last Admin: 02/20/17 07:56 Dose: 100 mls/hr Lactulose (Lactulose*) 30 ml PO TID [facility] Last Admin: 02/19/17 19:39 Dose: 30 ml Lisinopril (Prinivil Tab*) 10 mg PO DAILY [facility] Last Admin: 02/19/17 09:12 Dose: 10 mg Naphazoline HCl/Pheniramine Maleate (Naphcon-A*) 1 drop BOTH EYES QID [facility] Last Admin: 02/19/17 19:38 Dose: 1 drop Oxcarbazepine (Trileptal Tab(*)) 300 mg PO BID [facility] Last Admin: 02/19/17 19:39 Dose: 300 mg Polyethylene Glycol/Electrolytes (Miralax*) 17 gm PO DAILY PRN PRN Reason: CONSTIPATION Last Admin: 02/19/17 20:07 Dose: 17 gm Risperidone (Risperdal*) 1 mg PO BID [facility] Last Admin: 02/19/17 19:39 Dose: 1 mg . Vital Signs 02/19/17 02/19/17 02/19/17 15:48 15:53 16:54 Temperature 97.9 F 97.9 F Pulse Rate 62 58 Respiratory 16 Rate Blood Pressure 131/58 131/58 (mmHg) O2 Sat by Pulse 98 Oximetry 02/19/17 02/19/17 19:49 20:00 Temperature 99.1 F Pulse Rate 94 Respiratory 16 16 Rate Blood Pressure 173/104 (mmHg) O2 Sat by Pulse 98 Oximetry Oxygen Devices in Use Now: None Appearance: NAD Ears/Nose/Mouth/Throat: Clear Oropharnyx Neck: Trachea Midline Respiratory: Symmetrical Chest Expansion and Respiratory Effort Cardiovascular: NL Sounds; No Murmurs; No JVD Abdominal: NL Sounds; No Tenderness; No Distention Lymphatic: No Cervical Adenopathy Extremities: No Edema Skin: No Rash or Ulcers, No Nodules or Sclerosis Neurological: NL Sensation Lines/Tubes/Other Access: Clean, Dry and Intact Peripheral IV Nutrition: Taking PO's Result Diagrams: 02/20/17 05:58 02/20/17 05:58 Microbiology and Other Data: Microbiology 02/17/17 11:05 Influenza Types A,B Antigen (CARLOS) - Final Nasal Specimen received for Influenza A/B Molecular testing Assess/Plan/Problems-Billing Assessment: 21 M h/o severe autism p/w seizures found with fevers, elevated WBC and elevated valproate levels - Patient Problems (1) Autism Current Visit: Yes Status: Chronic Code(s): F84.0 - AUTISTIC DISORDER Comment: Dx noted, per parents. (2) Encephalopathy due to metabolic factor or toxin Current Visit: Yes Status: Acute Priority: High Code(s): CHB5671 - Comment: In setting of elevated ammonia Valproate lvl does not have to be elevated in order to cause increased ammonia lvl check valporate lvl tomorrow on lower dose check ammonia lvl on lactulose check abdominal film today given paucity of stool on lactulose (3) Fever Current Visit: Yes Status: Acute Code(s): R50.9 - FEVER, UNSPECIFIED Comment: Elevated WBC. Started on empiric pip/chloe on admission. Repeat CBC normalized. No additional fevers. No source identified. Possibly viral. Likely benefit from PO abx on discharge empirically Blood cx and UCx NGTD Noted weight loss by DDSO US kidney/bladder without dz although ureteral jet not seen. Post void residual 53 after ultrasound performed (4) Polydipsia Current Visit: Yes Status: Chronic Priority: Medium Code(s): R63.1 - POLYDIPSIA Comment: Recent change. So far no hyponatremia. As this may be evolivng, would suggest weekly BMP for a few weeks after discharge. (5) Seizure Current Visit: Yes Status: Acute Code(s): R56.9 - UNSPECIFIED CONVULSIONS SNOMED Code(s): 21218159 Comment: Oxcarbenzapine added after d/w neurology - first dose AM 4/3 valproic acid decreased to BID in setting of elevated ammonia lvl Valproic acid lvl elevated - may be contributing to increased seizures and/or lethargy although level was not a true trough. Check trough / Repeat ammonia level c/w lactulose Status and Disposition: Stable for d/c if ammonia improves and pt is less lethargic. Hospital stay, recent fevers and seizures likely contributing to increased lethargy as well.
[2017-02-20] MEDS: Lisinopril TAB* 10 MG PO SCH (10:25)
[2017-02-20] MEDS: Divalproex Sprinkle CAP* 125 MG PO SCH ×2 (10:25→19:31)
[2017-02-20] MEDS: risperiDONE TAB* 1 MG PO SCH ×2 (10:25→19:31)
[2017-02-20] MEDS: OXcarbazepine TAB(*) 300 MG PO SCH ×2 (10:26→19:31)
[2017-02-20] MEDS: LACTULOSE* 30 ML UDC PO SCH ×3 (10:27→19:37)
[2017-02-20] MEDS: cloNIDine TAB* 0.1 MG PO SCH ×2 (10:28→19:31)
[2017-02-20] MEDS: busPIRone TAB* 10 MG PO SCH ×3 (10:28→19:31)
[2017-02-20] MEDS: Naphazoline/Pheniramine OPTH* 5 ML BTL BOTH EYES SCH ×4 (10:29→19:37)
[2017-02-20] MEDS: Cetirizine* 10 MG TAB PO SCH (19:31)
[2017-02-21] MEDS: Piperac/Tazob 3.375 gm in NS* 3.375 GM/100 ML BAG IVPB SCH ×2 (02:06→10:47)
[2017-02-21 05:56] LABS: BUN/Creatinine Ratio 12.7 (8-20); Calcium 9.2 mg/dL (8.6-10.3); EGFR Non-African American 157.8 (>60); Potassium 4.3 mmol/L (3.5-5.0)
[2017-02-21 08:36] VITALS: BP 141/81
[2017-02-21] MEDS: LACTULOSE* 30 ML UDC PO SCH ×2 (10:47→13:57)
[2017-02-21] MEDS: Lisinopril TAB* 10 MG PO SCH (10:48)
[2017-02-21] MEDS: OXcarbazepine TAB(*) 300 MG PO SCH (10:48)
[2017-02-21] MEDS: cloNIDine TAB* 0.1 MG PO SCH (10:48)
[2017-02-21] MEDS: risperiDONE TAB* 1 MG PO SCH (10:48)
[2017-02-21] MEDS: Divalproex Sprinkle CAP* 125 MG PO SCH (10:49)
[2017-02-21] MEDS: Naphazoline/Pheniramine OPTH* 5 ML BTL BOTH EYES SCH ×2 (10:49→13:59)
[2017-02-21] MEDS: busPIRone TAB* 10 MG PO SCH ×2 (10:50→13:58)
--- NOTE | 2017-02-22 18:16 | PN ---
Hospitalist Progress Note . HOSPITALIST DISCHARGE NOTE: See dc instructions and summary by me. Patient stable for dc dc instructions reviewed with the patient at the bedside. DC patient home (to long term) today.
--- NOTE | 2017-02-23 17:14 | DS ---
DISCHARGE SUMMARY: DATE OF ADMISSION: 02/17/17 DATE OF DISCHARGE: 02/21/17 PRIMARY CARE PROVIDER: Dr. Blayne Sheehan. STATUS DURING HOSPITALIZATION: Inpatient. PRINCIPAL DISCHARGE DIAGNOSIS: Encephalopathy secondary to increased ammonia in turn likely secondary to elevated valproic acid levels. SECONDARY DIAGNOSES: 1. Severe autism with history of seizure disorder. 2. Fevers at admission. 3. Polydipsia. DISCHARGE MEDICATION REGIMEN: 1. Acetaminophen 650 mg by mouth every 4 hours p.r.n. pain/fever. 2. Cetirizine/Zyrtec 10 mg by mouth at bedtime. 3. Clonidine 0.2 mg tab by mouth twice daily. 4. Divalproex sodium/Depakote Sprinkle 125 mg capsules 500 mg by mouth 3 times daily. 5. Lisinopril 10 mg by mouth daily. 6. Polyethylene glycol/MiraLAX 17 g daily. 7. Buspirone 10 mg by mouth 3 times daily. 8. Risperidone 1 mg by mouth twice daily. 9. Acetaminophen 975 mg by mouth 3 times daily p.r.n. pain/fever. 10. Lactulose 30 mg by mouth 3 times daily as needed for 1 to 2 bowel movements per day. 11. Trileptal 300 mg by mouth twice daily. HISTORY OF PRESENT ILLNESS AND HOSPITAL COURSE: Please see the H and P by Dr. Sivakumar Peres on 02/18/17. In brief, Mr. Lepe is a developmentally disabled patient, who came to the hospital diminished from his baseline. The patient lives in a [facility]. The patient at baseline can communicate several words including pain using sign language, but has not done so. There was no appearance of pain. His valproic acid level was 125, which is greatly elevated. His ammonia at the same time was elevated at 85 (actually drawn on 02/18/17). The patient was started on lactulose following Dr. Peres's conference with Dr. Garcia. The patient's valproic acid was decreased to twice daily which is the discharge dose listed above. The patient's ammonia was repeated the following morning and it was greatly decreased down to 63 and then 52. The patient was aggressively hydrated with 2 L of normal saline. His lactic acid was initially elevated at 2.8 and this remained in that range indicating this is perhaps his baseline. The patient was mildly hypomagnesemic, but this was repleted and normalized. The patient did not have a persistent white count, although he came in with one and this was attributable to his seizure. The patient's coagulation parameters were generally within normal limits. His urinalysis was unremarkable and his overall presentation was attributed to the valproic acid level that was elevated causing the hyperammonemia and in turn his depressed mental status. On the day of discharge, 02/21/17, he was more alert and his staff as well as his mother felt he was back to his baseline. There were some minor concerns regarding some bruising from the telemetry pads from the emergency room, but these were examined and deemed not to be significant findings. The patient's caretakers were very attentive and they are bringing him back to his [facility] today, 02/21/17. Return to ED instructions were provided to come back to the emergency room if any worrisome symptoms arose such as alteration in his mental status, decreased stool output, fevers, or any other worrisome symptoms. The staff said they would comply. TIME SPENT: Total time taken to discharge Mr. Lepe was 45 minutes, greater than half that time was spent going over the discharge instructions and the medication list with the patient's staff and his mother. CONDITION AT TRANSFER: Stable. CC: Dr. Blayne Sheehan* [id number]/[facility] #: [id number] GERALD
== END 2017-02-21 14:45 | disposition home or self-care (01) | DRG 52 ==
LOC: ED 01:33 → MEDTELE 11:06 → MED 11:06 → OBSVTOIN 02-18 14:27
PROVIDERS: ADMIT Internal Medicine; ATTEND Internal Medicine
DX: G92 Toxic encephalopathy (principal); F84.0 Autistic disorder; E83.42 Hypomagnesemia; I10 Essential (primary) hypertension; G40.909 Epilepsy, unspecified, not intractable, without status epilepticus; R50.9 Fever, unspecified; R63.1 Polydipsia; T42.6X5A Adverse effect of other antiepileptic and sedative-hypnotic drugs, initial encounter; J30.9 Allergic rhinitis, unspecified; Y92.9 Unspecified place or not applicable; Z88.1 Allergy status to other antibiotic agents; Z83.3 Family history of diabetes mellitus
CPT/HCPCS: 36415; 71020; 74020; 76770; 80048; 80053; 80164; 81003; 81015; 82140; 83605; 83735; 84443; 85025; 85610; 87040; 87502; 93005; 94760; A9270-GY; G0378; J2543

== ENCOUNTER 2017-08-31 22:24 | Inpatient (IN) | payer BC, MEDICAID ==
[2017-08-31] MEDS ORDERED: NS 0.9% 1000 ML* 1,000 ML IV ONE (22:38)
[2017-08-31 23:12] LABS: Hematocrit 34 % (42-52); Hemoglobin 12.5 g/dl (14.0-18.0); Mean Corpuscular HGB Conc 36 g/dl (31-36); Mean Corpuscular Hemoglobin 31 pg (27-31); Mean Corpuscular Volume 84 fL (80-94); Mean Platelet Volume 8 um3 (7.4-10.4); Red Blood Count 4.07 10^6/ul (4.0-5.4); Red Cell Distribution Width 13 % (10.5-15); White Blood Count 10.8 10^3/ul (3.5-10.8)
[2017-08-31 23:19] LABS: Comments Flag Yes
[2017-08-31 23:27] LABS: Urine Bilirubin Negative (Negative); Urine Glucose 1+(50 mg/dL) (Negative); Urine Nitrite Negative (Negative)
[2017-08-31 23:34] LABS: ALT 20 U/L (7-52); AST 33 U/L (13-39); Acetaminophen < 15 mcg/mL; Alcohol < 10 mg/dL (<10); Alkaline Phosphatase 49 U/L (34-104); Anion Gap 9 mmol/L (2-11); BUN/Creatinine Ratio 7.6 (8-20); Blood Urea Nitrogen 5 mg/dL (6-24); C Reactive Protein < 1.00 mg/L (< 5.00); CO2 Carbon Dioxide 26 mmol/L (22-32); Calcium 8.3 mg/dL (8.6-10.3); Chloride 95 mmol/L (101-111); Creatine Kinase 852 U/L (10-223); EGFR African American 190.7 (>60); EGFR Non-African American 148.3 (>60); Globulin 2.3 g/dL (2-4); Glucose 116 mg/dL (70-100); Lipase 31 U/L (11.0-82.0); Magnesium 1.5 mg/dL (1.9-2.7); Sodium 130 mmol/L (133-145); Total Protein 6.3 g/dL (6.4-8.9)
[2017-08-31 23:38] LABS: B Type Natriuretic Peptide 21 pg/mL
[2017-08-31 23:40] LABS: Benzodiazepine Urine Screen Presumptive Positive (None Detect)
[2017-08-31 23:48] LABS: TSH (Thyroid Stimulating Horm) 4.91 mcIU/mL (0.34-5.60)
[2017-09-01 00:29] LABS: Ammonia 48 mol/L (16-53)
[2017-09-01 00:35] LABS: Troponin I 0.01 ng/mL (<0.04)
[2017-09-01] MEDS ORDERED: NS 0.9% 1000 ML* 1,000 ML IV SCH ×2 (02:45→03:15)
[2017-09-01] MEDS ORDERED: Clotrimazole 1% CREAM* 45 GM TOPICAL PRN (03:11)
[2017-09-01] MEDS ORDERED: Magnesium Sulfate 2 GM IV* 2 GM/50 ML BAG IVPB ONE (03:33)
[2017-09-01] MEDS ORDERED: Pantoprazole IV* 40 MG IV SCH (04:00)
--- NOTE | 2017-09-01 04:30 | ED ---
Chris Oates Nikita, scribed for Marco A Lewis MD on 08/31/17 at 2315 . Neurological HPI - HPI Summary HPI Summary: LEVEL 5 CAVEAT This patient is a 22 year old M BIBA to ED with a chief complaint of seizures since [employer]. Pt has had 4 seizures in 25 minutes. Pt given 5mg IM Versed by EMS. Per EMS, pt is sedated at this time. assistant statistician notes Sinus Tachycardia with HR 100. Pupils equal, round, and reactive to light. Painful stimuli arouses pt. Pt at baseline is non-verbal. - History of Current Complaint Chief Complaint: EDSeizure Stated Complaint: SEIZURES Time Seen by Provider: 08/31/17 22:58 Hx Obtained From: EMS Hx From Patient Unobtainable Due To: Other - Pt is currently sedated Onset/Duration: Sudden Onset, Started minutes ago, Resolved Timing: Intermittent Episodes Lasting: - 4 seizures in 25 minutes Number of Seizures: 4 - in 25 minutes Associated Signs and Symptoms: Positive: Seizure - Pt is sedated at this time. assistant statistician notes Sinus Tachycardia with HR 100. Pupils equal, round, and reactive to light. Painful stimuli arouses pt. Pt at baseline is non-verbal. - Additional Pertinent History Primary Care Physician: [id number] - Allergy/Home Medications Allergies/Adverse Reactions: Allergies Allergy/AdvReac Type Severity Reaction Status Date / Time Clarithromycin [From Biaxin] Allergy Unknown Verified 08/31/17 22:51 Reaction Details Home Medications: Home Medications Clotrimazole 1% CREAM* [Clotrimazole 1%*] 1 applic TOPICAL BID PRN 09/01/17 [ History Confirmed 09/01/17] Magnesium CITRATE* [Citrate of Magnesia*] 300 ml PO SEE INSTRUCTIONS PRN [History Confirmed 09/01/17] Oxcarbazepine [Trileptal 300 mg tab] 300 mg PO BID 09/01/17 [History Confirmed 09/01/17] PMH/Surg Hx/FS Hx/Imm Hx Cardiovascular History: Reports: Hx Hypertension Sensory History: Denies: Hx Contacts or Glasses, Hx Hearing Aid Opthamlomology History: Denies: Hx Contacts or Glasses Neurological History: Reports: Hx Seizures Psychiatric History: Reports: Hx Anxiety, Hx Autism - Surgical History Surgery Procedure, Year, and Place: hernia repair x2 at 3mo old, tail bone absyss drained Infectious Disease History: Unable to Obtain/Confirm Infectious Disease History: Denies: Traveled Outside the [place] in Last 30 Days - Family History Known Family History: Positive: Unknown - Level 5 Caveat due to autism Family History: LEVEL 5 CAVEAT - NON-VERBAL SECONDARY TO AUTISM - Social History Alcohol Use: None Hx Substance Use: No Substance Use Type: Reports: None Hx Tobacco Use: No Smoking Status (MU): Never Smoked Tobacco Review of Systems Positive: Other - PERRL per EMS Positive: Other - sinus tachycardia per EMS Neurological: Other - non-verbal per EMS, currently sedated, pain arouses stimuli All Other Systems Reviewed And Are Negative: No Physical Exam Triage Information Reviewed: Yes Vital Signs On Initial Exam: Initial Vitals Temp Pulse Resp BP Pulse Ox 98.3 F 100 18 141/82 95 08/31/17 22:35 08/31/17 22:35 08/31/17 22:35 08/31/17 22:35 08/31/17 22:35 Vital Signs Reviewed: Yes Completion Of Physical Exam Limited Due To: Level 5 - seizures, currently sedated Eyes: Positive: Other: - Pupils are 3mm and reactive Musculoskeletal: Positive: Other - decreased movement in L arm and L leg in comparison to R Neurological: Positive: Other - postictal - [place] Coma Scale Best Eye Response: 2 - To Pain Best Motor Response: 4 - Withdraws Best Verbal Response: 1 - None Coma Scale Total: 8 Diagnostics - Vital Signs Vital Signs Temp Pulse Resp BP Pulse Ox 08/31/17 22:35 98.3 F 100 18 141/82 95 - Laboratory Lab Results: Lab Results 08/31/17 08/31/17 08/31/17 Range/Units 22:55 22:55 22:55 WBC (3.5-10.8) 10^3/ul RBC (4.0-5.4) 10^6/ul Hgb (14.0-18.0) g/dl Hct (42-52) % MCV (80-94) fL MCH (27-31) pg MCHC (31-36) g/dl RDW (10.5-15) % Plt Count (150-450) 10^3/ul MPV (7.4-10.4) um3 Neut % (Auto) (38-83) % Lymph % (Auto) (25-47) % [place] % (Auto) (1-9) % Eos % (Auto) (0-6) % Baso % (Auto) (0-2) % Absolute Neuts (auto) (1.5-7.7) 10^3/ul Absolute Lymphs (auto) (1.0-4.8) 10^3/ul Absolute Monos (auto) (0-0.8) 10^3/ul Absolute Eos (auto) (0-0.6) 10^3/ul Absolute Basos (auto) (0-0.2) 10^3/ul Absolute Nucleated RBC 10^3/ul Nucleated RBC % INR (Anticoag Therapy) 1.14 H (0.89-1.11) APTT 29.8 (26.0-36.3) seconds Sodium 130 L (133-145) mmol/L Potassium 3.0 L (3.5-5.0) mmol/L Chloride 95 L (101-111) mmol/L Carbon Dioxide 26 (22-32) mmol/L Anion Gap 9 (2-11) mmol/L BUN 5 L (6-24) mg/dL Creatinine 0.66 L (0.67-1.17) mg/dL Est GFR ( Amer) 190.7 (>60) Est GFR (Non-Af Amer) 148.3 (>60) BUN/Creatinine Ratio 7.6 L (8-20) Glucose 116 H (70-100) mg/dL Lactic Acid (0.5-2.0) mmol/L Calcium 8.3 L (8.6-10.3) mg/dL Magnesium 1.5 L (1.9-2.7) mg/dL Total Bilirubin 0.40 (0.2-1.0) mg/dL AST 33 (13-39) U/L ALT 20 (7-52) U/L Alkaline Phosphatase 49 (34-104) U/L Ammonia 48 (16-53) mol/L Total Creatine Kinase 852 H (10-223) U/L CK-MB (CK-2) 11.9 H (0.6-6.3) ng/mL Troponin I 0.01 (<0.04) ng/mL C-Reactive Protein < 1.00 (< 5.00) mg/L B-Natriuretic Peptide 21 ( - 100) pg/mL Total Protein 6.3 L (6.4-8.9) g/dL Albumin 4.0 (3.2-5.2) g/dL Globulin 2.3 (2-4) g/dL Albumin/Globulin Ratio 1.7 (1-3) Lipase 31 (11.0-82.0) U/L TSH 4.91 (0.34-5.60) mcIU/mL Urine Color Urine Appearance Urine pH (5-9) Ur Specific [place] (1.010-1.030) Urine Protein (Negative) Urine Ketones (Negative) Urine Blood (Negative) Urine Nitrate (Negative) Urine Bilirubin (Negative) Urine Urobilinogen (Negative) Ur Leukocyte Esterase (Negative) Urine Glucose (Negative) Urine Ascorbic Acid (Negative) Urine Opiates Screen (None Detect) Acetaminophen < 15 mcg/mL Ur Barbiturates Screen (None Detect) Valproic Acid 50.0 (50-100) mcg/mL Ur Phencyclidine Scrn (None Detect) Ur Amphetamines Screen (None Detect) U Benzodiazepines Scrn (None Detect) Urine Cocaine Screen (None Detect) U Cannabinoids Screen (None Detect) Serum Alcohol < 10 (<10) mg/dL 08/31/17 08/31/17 08/31/17 Range/Units 22:55 22:55 23:15 WBC 10.8 (3.5-10.8) 10^3/ul RBC 4.07 (4.0-5.4) 10^6/ul Hgb 12.5 L (14.0-18.0) g/dl Hct 34 L (42-52) % MCV 84 (80-94) fL MCH 31 (27-31) pg MCHC 36 (31-36) g/dl RDW 13 (10.5-15) % Plt Count 138 L (150-450) 10^3/ul MPV 8 (7.4-10.4) um3 Neut % (Auto) 78.3 (38-83) % Lymph % (Auto) 10.5 L (25-47) % [place] % (Auto) 9.1 H (1-9) % Eos % (Auto) 1.8 (0-6) % Baso % (Auto) 0.3 (0-2) % Absolute Neuts (auto) 8.4 H (1.5-7.7) 10^3/ul Absolute Lymphs (auto) 1.1 (1.0-4.8) 10^3/ul Absolute Monos (auto) 1.0 H (0-0.8) 10^3/ul Absolute Eos (auto) 0.2 (0-0.6) 10^3/ul Absolute Basos (auto) 0 (0-0.2) 10^3/ul Absolute Nucleated RBC 0.01 10^3/ul Nucleated RBC % 0.1 INR (Anticoag Therapy) (0.89-1.11) APTT (26.0-36.3) seconds Sodium (133-145) mmol/L Potassium (3.5-5.0) mmol/L Chloride (101-111) mmol/L Carbon Dioxide (22-32) mmol/L Anion Gap (2-11) mmol/L BUN (6-24) mg/dL Creatinine (0.67-1.17) mg/dL Est GFR ( Amer) (>60) Est GFR (Non-Af Amer) (>60) BUN/Creatinine Ratio (8-20) Glucose (70-100) mg/dL Lactic Acid 4.1 H* (0.5-2.0) mmol/L Calcium (8.6-10.3) mg/dL Magnesium (1.9-2.7) mg/dL Total Bilirubin (0.2-1.0) mg/dL AST (13-39) U/L ALT (7-52) U/L Alkaline Phosphatase (34-104) U/L Ammonia (16-53) mol/L Total Creatine Kinase (10-223) U/L CK-MB (CK-2) (0.6-6.3) ng/mL Troponin I (<0.04) ng/mL C-Reactive Protein (< 5.00) mg/L B-Natriuretic Peptide ( - 100) pg/mL Total Protein (6.4-8.9) g/dL Albumin (3.2-5.2) g/dL Globulin (2-4) g/dL Albumin/Globulin Ratio (1-3) Lipase (11.0-82.0) U/L TSH (0.34-5.60) mcIU/mL Urine Color Straw Urine Appearance Clear Urine pH 6.0 (5-9) Ur Specific [place] 1.005 L (1.010-1.030) Urine Protein Negative (Negative) Urine Ketones Negative (Negative) Urine Blood Negative (Negative) Urine Nitrate Negative (Negative) Urine Bilirubin Negative (Negative) Urine Urobilinogen Negative (Negative) Ur Leukocyte Esterase Negative (Negative) Urine Glucose 1+(50 mg/dl) H (Negative) Urine Ascorbic Acid * H (Negative) Urine Opiates Screen (None Detect) Acetaminophen mcg/mL Ur Barbiturates Screen (None Detect) Valproic Acid (50-100) mcg/mL Ur Phencyclidine Scrn (None Detect) Ur Amphetamines Screen (None Detect) U Benzodiazepines Scrn (None Detect) Urine Cocaine Screen (None Detect) U Cannabinoids Screen (None Detect) Serum Alcohol (<10) mg/dL 08/31/17 Range/Units 23:15 WBC (3.5-10.8) 10^3/ul RBC (4.0-5.4) 10^6/ul Hgb (14.0-18.0) g/dl Hct (42-52) % MCV (80-94) fL MCH (27-31) pg MCHC (31-36) g/dl RDW (10.5-15) % Plt Count (150-450) 10^3/ul MPV (7.4-10.4) um3 Neut % (Auto) (38-83) % Lymph % (Auto) (25-47) % [place] % (Auto) (1-9) % Eos % (Auto) (0-6) % Baso % (Auto) (0-2) % Absolute Neuts (auto) (1.5-7.7) 10^3/ul Absolute Lymphs (auto) (1.0-4.8) 10^3/ul Absolute Monos (auto) (0-0.8) 10^3/ul Absolute Eos (auto) (0-0.6) 10^3/ul Absolute Basos (auto) (0-0.2) 10^3/ul Absolute Nucleated RBC 10^3/ul Nucleated RBC % INR (Anticoag Therapy) (0.89-1.11) APTT (26.0-36.3) seconds Sodium (133-145) mmol/L Potassium (3.5-5.0) mmol/L Chloride (101-111) mmol/L Carbon Dioxide (22-32) mmol/L Anion Gap (2-11) mmol/L BUN (6-24) mg/dL Creatinine (0.67-1.17) mg/dL Est GFR ( Amer) (>60) Est GFR (Non-Af Amer) (>60) BUN/Creatinine Ratio (8-20) Glucose (70-100) mg/dL Lactic Acid (0.5-2.0) mmol/L Calcium (8.6-10.3) mg/dL Magnesium (1.9-2.7) mg/dL Total Bilirubin (0.2-1.0) mg/dL AST (13-39) U/L ALT (7-52) U/L Alkaline Phosphatase (34-104) U/L Ammonia (16-53) mol/L Total Creatine Kinase (10-223) U/L CK-MB (CK-2) (0.6-6.3) ng/mL Troponin I (<0.04) ng/mL C-Reactive Protein (< 5.00) mg/L B-Natriuretic Peptide ( - 100) pg/mL Total Protein (6.4-8.9) g/dL Albumin (3.2-5.2) g/dL Globulin (2-4) g/dL Albumin/Globulin Ratio (1-3) Lipase (11.0-82.0) U/L TSH (0.34-5.60) mcIU/mL Urine Color Urine Appearance Urine pH (5-9) Ur Specific [place] (1.010-1.030) Urine Protein (Negative) Urine Ketones (Negative) Urine Blood (Negative) Urine Nitrate (Negative) Urine Bilirubin (Negative) Urine Urobilinogen (Negative) Ur Leukocyte Esterase (Negative) Urine Glucose (Negative) Urine Ascorbic Acid (Negative) Urine Opiates Screen None detected (None Detect) Acetaminophen mcg/mL Ur Barbiturates Screen None detected (None Detect) Valproic Acid (50-100) mcg/mL Ur Phencyclidine Scrn None detected (None Detect) Ur Amphetamines Screen None detected (None Detect) U Benzodiazepines Scrn Presumptive positive H (None Detect) Urine Cocaine Screen None detected (None Detect) U Cannabinoids Screen None detected (None Detect) Serum Alcohol (<10) mg/dL Result Diagrams: 08/31/17 22:55 08/31/17 22:55 Lab Statement: Any lab studies that have been ordered have been reviewed, and results considered in the medical decision making process. - Radiology CXR Radiology Interpretation Completed By: ED Physician - CXR reveals NAD. - CT Brain CT Interpretation Completed By: Radiologist - 1. No definitive evidence of acute intracranial hemorrhage, intracranial mass effect, hydrocephalus, or depressed calvarial fracture is appreciated. If symptoms of concern persists, correlation with follow up CT or MRI is advised, at your clinical discretion. ED physician has reviewed this radiology report and agrees. Chest/Abd/Pel CT Interpretation Completed By: Radiologist - No evidence of acute pathology chest, abdomen or pelvis. ED physician has reviewed this radiology report and agrees. L-spine CT CT Interpretation Completed By: Radiologist - Mild scoliosis. Small disc bulge at L4-5 and small central disc herniation L5/S1, both without significant mass effect. ED physician has reviewed this radiology report and agrees. T-spine CT CT Interpretation Completed By: Radiologist - Scoliosis. Small right pleural effusion. ED physician has reviewed this radiology report and agrees. - EKG 2350 Cardiac Rate: NL - 71 bpm EKG Rhythm: Sinus Rhythm EKG Interpretation: probable L ventricular hypertrophy, diffuse ST elev. that are concave up Course/Dx - Course Assessment/Plan: LEVEL 5 CAVEAT. This patient is a 22 year old M BIBA to ED with a chief complaint of seizures since [employer]. Pt has had 4 seizures in 25 minutes. Pt given 5mg IM Versed by EMS. Per EMS, pt is sedated at this time. assistant statistician notes Sinus Tachycardia with HR 100. Pupils equal, round, and reactive to light. Painful stimuli arouses pt. Pt at baseline is non-verbal. Brain CT reveals 1. No definitive evidence of acute intracranial hemorrhage, intracranial mass effect, hydrocephalus, or depressed calvarial fracture is appreciated. If symptoms of concern persists, correlation with follow up CT or MRI is advised, at your clinical discretion. Chest/Abd/Pel CT reveals no evidence of acute pathology chest, abdomen or pelvis. L-spine CT reveals mild scoliosis. Small disc bulge at L4-5 and small central disc herniation L5/S1, both without significant mass effect. T-spine CT reveals scoliosis. Small right pleural effusion. ED physician has reviewed these radiology reports and agrees. CXR reveals NAD. EKG reveals NSR at 71 bpm, probable L ventricular hypertrophy, and diffuse ST elevations that are concave up. In the ED course, pt was given fluids. Medications reviewed. BP noted and advised to follow up with PCP. Allergies noted. Consulted Dr. Lamar at 0151 about pt who recommends to give the pt 500 mg of valproic acid and an IV, admit the pt to the ICU, increase the pt' s dosage to 750 mg po, and cover with Ativan if the pt seizes. Pt will be admitted. DISCUSSED RESULTS WITH FAMILY. DISCUSSED WITH NEUROLOGY, DR LAMAR. HE RECOMMENDED GIVING AN ADDITIONAL DEPAKOTE 500MG IV AND INCREASING THE DAILY DOSE TO 750MG PO BID AND ADMISSION TO THE ICU. ADMIT HOSPITALIST STABLE. CRITICAL CARE TIME LESS THAN 30 MINUTES. - Diagnoses Provider Diagnoses: Seizures - Physician Notifications Discussed Care Of Patient With: Chloe Lamar Time Discussed With Above Provider: 01:51 Instructed by Provider To: Other - Consulted Dr. Lamar about pt who recommends to give the pt 500 mg of valproic acid and an IV, admit the pt to the ICU, increase the pt's dosage to 750 mg po, and cover with Ativan if the pt seizes. Discharge - Discharge Plan Condition: Stable Disposition: ADMITTED TO [facility] documentation as recorded by the Chris stoner Nikita accurately reflects the service I personally performed and the decisions made by me, Marco A Lewis MD.
[2017-09-01] MEDS: KCL 10 MEQ/50 ML IVPREMIX* 10 MEQ/50 ML BAG IV SCH ×2 (05:07→07:14)
--- NOTE | 2017-09-01 07:26 | HP ---
CC: Dr. Blayne Sheehan; Dr. Austen Lamar* HISTORY AND PHYSICAL: DATE OF ADMISSION: 09/01/17 PRIMARY CARE PROVIDER: Dr. Blayne Sheehan, phone number to Dr. Sheehan' office is [phone]. CHIEF COMPLAINT: Recurrent seizures. HISTORY OF PRESENT ILLNESS: Mansoor Lepe is a 22-year-old male who is a resident of [facility]. He has a history of autism and is nonverbal. He also has history of seizures. Patient's mother who is his legal guardian is by the bedside and stated that the patient's seizures would be "sporadic." He would have several seizures at a time, but then none for several years. For the past year, he had been having seizures multiple times and he was hospitalized in [facility] and in June 2017 and at [facility] in February of 2017. Today, the patient was noted to behave usually which is nonverbal but ambulating without any problems. At some point he started complaining of his back hurting and then the staff found him on the floor seizing. He had 4 seizures within 20 minutes. Received Versed in the ambulance and he presented to the emergency department yesterday postictal. Dr. Ross from the emergency department contacted Dr. Austen Lamar from Neurology who recommended given patient another dose of 500 mg of IV valproic acid and increasing the overall dose to 750 mg b.i.d. The patient is also going to be admitted to the intensive care unit with diagnosis of status epilepticus. PAST MEDICAL HISTORY: 1. History of autism, severe. The patient is baseline nonverbal, but able to ambulate without any problems, can find his own room in the facility. He had lived with his parents up to the age of 19 and then he moved into [facility]. 2. Hypertension. 3. History of seizure disorder. 4. Recent hospitalization at [facility] in February 2017 with Depakote toxicity, elevated ammonia level, and high Depakote level. 5. History of bilateral inguinal hernia repair as a child. ALLERGIES: CLARITHROMYCIN. CURRENT MEDICATIONS: Include: 1. Depakote 500 mg b.i.d. as Depakote sprinkles. 2. Clotrimazole 5% cream 1 application b.i.d. to affected areas in groins. 3. Acetaminophen on a p.r.n. basis. 4. Magnesium citrate 300 mg p.r.n. 5. MiraLAX 17 g daily p.r.n. 6. Lactulose 30 mL 3 times a day. 7. Risperdal 1 mg b.i.d. 8. Trileptal 300 mg b.i.d. 9. Clonidine 0.2 mg b.i.d. 10. Zyrtec 10 mg daily. 11. BuSpar 10 mg 3 times a day. 12. Lisinopril 10 mg daily. FAMILY HISTORY: Reviewed and noncontributory. SOCIAL HISTORY: The patient has no history of tobacco, alcohol or drug use. He lived with his mother until he was 19 years old, then he moved into a facility in [place]. His healthcare proxies are both his father and his mother, his mother's name is Abdulaziz Martin. Patient's mother's cell phone is [phone]. Patient's father's name is Jac Lepe, cell phone [phone]. The mother usually is asked to be formally notified first and then she usually communicates with the father. REVIEW OF SYSTEMS: Unobtainable from the sedated postictal patient. Per patient's mother at baseline, patient is nonverbal but able to walk without any assistance. He has had problems with behavioral issues and the patient's mother stated that it is usually due to being nonverbal. As per patient's mother, the patient "understands everything." His seizures are usually tonic-clonic and that is what happened today. All the remaining systems were unable to be reviewed due to the patient being sedated and nonverbal. LABORATORY DATA/DIAGNOSTIC DATA: Showed white blood cell count of 10.8, hemoglobin 12.5, hematocrit of 34, and platelets of 138. Sodium was 138, potassium 3.0, chloride 95, carbon dioxide 26, BUN 5, creatinine 0.66. Liver function tests showed bilirubin of 0.4, AST of 33, ALT of 20, and alkaline phosphatase of 49. CPK was 852. Troponin of 0.01. C- reactive protein of below 1. TSH of 4.9. The patient's lactic acid was 4.1. Glucose of 116, magnesium of 1.5. The patient's urinalysis was unremarkable apart from +1 glucose and 1.005 specific gravity. Valproic acid was at a level of 50. CT of the chest showed "no aortic aneurysm. There was no significant mediastinal hilar adenopathy. The heart size is normal. The trachea and bronchi are patent. There is no pleural or pericardial effusion. The lungs are clear." CT of the lumbar spine showed impression "mild scoliosis. Small disk bulge at L4- L5 level and small central disk herniation at L5-S1 level both without significant mass effect." CT of thoracic spine shows "scoliosis and small right-sided pleural effusion." The CT of the brain was unremarkable. The patient's EKG showed normal sinus rhythm with heart rate of 71 beats per minute with possible LVH and elevated J point, likely due to early repolarization. Compared to an EKG from February 2017, the patient's Ts were down- sloping at that point and today are positive. ASSESSMENT AND PLAN: 1. Status epilepticus. The patient has 4 seizures in 20 minutes time. He is going to be admitted to the intensive care unit for frequent monitoring. His valproic acid is going to be increased to [address] Lamar will see the patient in consultation in the morning. I will also obtain an EEG in the morning. Due to being postictal, the patient is going to be placed n.p.o. for the time being. 2. In regards to patient's hyponatremia, it may be due to mild dehydration. Place patient on intravenous fluids. 3. In regards to patient's hypokalemia and hypomagnesemia, those are going to be replaced intravenously. 4. Patient's hypertension. For the time being, his pressures had been in the 130s. I need to hold his p.o. blood pressure medications and observe for the time being. 5. The patient is going to be given a dose of IV Protonix when he is n.p.o. 6. Patient has EKG changes. At this point, I will obtain a transthoracic echocardiogram and follow up troponins. 7. Code status. Patient's code status is full, his surrogate is his mother as mentioned above. TIME SPENT: Approximately 75 minutes was spent on admission of this patient. More than half that time was spent [id number] with the patient and his mother during the interview and physical exam. [id number]/[facility] #: [id number] ZUCKER HILLSIDE HOSPITALMariza
--- NOTE | 2017-09-01 08:10 | RAD ---
INDICATION: Seizure COMPARISON: None. TECHNIQUE: Contiguous axial sections of the brain were obtained from the skull base to the vertex without contrast. FINDINGS: The ventricles, cisterns and sulci are within normal limits. The fraire-white matter differentiation is adequately maintained and there is no sulcal effacement. No significant focal abnormality or mass effect is present. There is no evidence for intracranial hemorrhage. No significant focal osseous abnormality is present. The visualized portion of the paranasal sinuses and mastoid air cells appear clear. IMPRESSION: Normal CT of the brain.
--- NOTE | 2017-09-01 08:12 | RAD ---
INDICATION: Seizures COMPARISON: Chest x-ray February 17, 2017 TECHNIQUE: An AP seated portable view obtained at 2326 hours is submitted. FINDINGS: Bones/Soft Tissues: There are no acute bony findings. Cardiomediastinal: The cardiomediastinal silhouette is normal. Lungs: There are no infiltrates. The examination is mildly expiratory. Pleura: There are no pleural effusions. Other: None IMPRESSION: NO ACTIVE DISEASE.
--- NOTE | 2017-09-01 08:32 | RAD ---
INDICATION: LEFT flank pain. Previous mild LEFT hydronephrosis documented on February 18, 2017 ultrasound. Previously noted mildly enlarged spleen. COMPARISON: February 10, [address] and February 18, 2017 renal ultrasound. TECHNIQUE: Multidetector CT images were obtained from the lung apices to the ischial tuberosities without contrast. Assessment of the viscera limited without contrast. Assessment of the alimentary tract limited without oral contrast. CHEST REPORT: Mild airspace consolidation at the apical segment of the RIGHT upper lobe and superior segment of the LEFT lower lobe concerning for pneumonia. Significant motion artifact at the mid to lower lung zones. Trace dependent RIGHT pleural effusion. Negative for thoracic lymphadenopathy, cardiomegaly, pericardial effusion. Normal diameter thoracic aorta. Unchanged finding of asymmetric LEFT pectus carinatum. Mild LEFT convex curve of the thoracic spine. No thoracic fracture or suspicious osseous lesion evident. CHEST IMPRESSION: Mild inflammatory infiltrate/pneumonia at the posterior upper lung zones. Small dependent RIGHT pleural effusion. ABDOMEN PELVIS REPORT: Arms down positioning results in beam hardening artifact degrading image quality. No CT abnormality of the unenhanced liver, gallbladder, pancreas, spleen. Moderate gastric distention with air-fluid level. No suspicious CT finding of the upper GI. Unremarkable small bowel. While mildly prominent in diameter the appendix visualized insinuating between the RIGHT margin of the urinary bladder and the RIGHT pelvic sidewall reference axial images 119-125 is without gross suggestion of mural thickening or periappendiceal inflammatory change to suggest acute appendicitis. Unremarkable colon. Negative for ascites, free air, hernias. Normal adrenal glands. Mild bilateral symmetric caliectasis at the kidneys without change compared with the February 10, 2017 exam. Negative for significant dilatation of the renal pelves. The ureters are nondilated. Moderately distended urinary bladder without gross evidence for mural thickening. No urolithiasis evident. Symmetric seminal vesicles. Negative for lymphadenopathy. Normal diameter abdominal aorta and iliac arteries. Physiologic partial distention of the IVC. Negative for superficial or retroperitoneal hematoma. Negative for lumbar spine fracture or suspicious focal osseous lesion. ABDOMEN PELVIS IMPRESSION: 1. No definitive acute abdominal pelvic pathologic process evident. 2. Mild caliectasis of the kidneys is unchanged compared with the February 10, 2017 exam and may represent normal variation given absence of dilatation of the renal pelves or visualized obstructing stone or lesion.
--- NOTE | 2017-09-01 08:40 | RAD ---
INDICATION: Back and left flank pain in a patient who is nonverbal. COMPARISON: CT of the chest February 10, 2017 TECHNIQUE: Contiguous axial sections were obtained beginning at the upper thoracic vertebra and continuing through the sacrum. Images were reconstructed in the sagittal and coronal planes. FINDINGS: There is a small amount of dextroconvex curvature of the thoracic spine. There is a small amount of levoconvex curvature of the lumbar spine. Otherwise the vertebral bodies and facet joints appear to be appropriately aligned. No fracture is seen. There is no hyperdense material in the thecal sac to indicate acute hemorrhage. The visualized soft tissues do not exhibit any acute abnormalities. IMPRESSION: Mild curvature of the thoracic and lumbar spine without acute fracture or dislocation visualized.
[2017-09-01] MEDS ORDERED: Valproic Acid IV(*) 100 MG/ML 5 ML VIAL (500 MG) IVPB SCH (09:00)
[2017-09-01] MEDS ORDERED: OXcarbazepine TAB(*) 300 MG PO SCH ×2 (09:00)
[2017-09-01] MEDS ORDERED: ZONISAMIDE 50 MG PO SCH (09:00)
--- NOTE | 2017-09-01 09:49 | PN ---
Subjective Date of Service: 09/01/17 Interval History: This is a 22 yo male with autism (non-verbal) and seizure d/o who was admitted overnight after 4 seizures within a 20 min period. Given 500 mg IV Depakote in the ER, he has been seizure free overnight. There was initial confusion about his current antiepileptic medications and recent history, which has been clarified by his house nurse and neurologist. Patient has had 4 prior hospital admissions in the last 12 months between here and [place]. He was hospitalized in October 2016, Dec, Feb, and May. His Feb admission was here. He was last seen by his neurologist in June. Patient is currently treated with Depakote sprinkles and Keppra. In February, patient was started on Trileptal, which was stopped in May due to hyponatremia. He was then started on Zonegran in early June, but stopped at the end of June due to concerns for lethargy. The first of Jul he was started on Keppra. Prior to 12 months ago, his seizure disorder was relatively well controlled. Patient is accompanied by his mother who reports that he has been complaining of back pain recently. She also reports he had a cyst removed from his foot and was treated with Augmentin surrounding that. No other acute illness or changes in behavior. There is also report of Mansoor drinking a significant amount of water, unsure if this is necessarily a new behavior. Objective Active Medications: Buspirone HCl (Buspar Tab*) 10 mg PO BID ESAU Clonidine HCl (Catapres Tab*) 0.2 mg PO BID ESAU Clotrimazole (Clotrimazole 1%*) 1 applic TOPICAL BID PRN PRN Reason: reddened buttox Divalproex Sodium (Depakote Sprinkle Cap*) 500 mg PO BID ESAU Lactulose (Lactulose*) 30 ml PO TID ESAU Levetiracetam (Keppra Tab*) 750 mg PO BID ESAU Lisinopril (Prinivil Tab*) 10 mg PO DAILY ESAU Pantoprazole Sodium (Protonix Iv*) 40 mg IV Q24H ESAU Last Admin: 09/01/17 04:59 Dose: 40 mg Risperidone (Risperdal*) 1 mg PO BID COUNT INCLUDES THE [facility] Vital Signs: Temp Pulse Resp BP Pulse Ox 99.8 F 86 16 115/74 97 09/01/17 04:31 09/01/17 07:00 09/01/17 07:00 09/01/17 07:00 09/01/17 07:00 Oxygen Devices in Use Now: None Appearance: Well appearing young gentleman in NAD. Lying in hospital bed, alert , accompanied by his mother. Respiratory: Symmetrical Chest Expansion and Respiratory Effort, Clear to Auscultation Cardiovascular: NL Sounds; No Murmurs; No JVD, RRR Abdominal: NL Sounds; No Tenderness; No Distention Extremities: No Edema Skin: No Rash or Ulcers Neurological: - - alert, non-verbal Result Diagrams: 08/31/17 22:55 08/31/17 22:55 Additional Lab and Data: . Microbiology and Other Data: Microbiology 09/01/17 05:25 Nasal Screen MRSA (PCR)(CARLOS) - Final Nasal Mrsa Negative Assess/Plan/Problems-Billing Assessment: This is a 22 yo male who is non-verbal secondary to autism with a seizure disorder and multiple seizure related admissions over the last 12 months who was admitted after status epilepticus. - Patient Problems (1) Status epilepticus Comment: Received 500 mg IV Depakote in the ER, seizure free over night Greatly appreciate neurology input Cont current depakote dosing based on h/o transaminitis and elevated ammonia levels with higher doses of depakote Increase Keppra to 750mg bid Noted mild hyponatremia at admission, ?med related v polydipsia Requested records from [facility] regarding his last admission there Spoke with primary neurologist to clarify current antiepileptic regimen and recent history (2) Hyponatremia Comment: Na 130 at admission, improved with NS to 137 mmol/L Patient's mother reports polydipsia, but response to NS suggests may have been hypovolemic Pending urine studies and serum osmolality ?Med related (3) Autism Comment: Non-verbal (4) Full code status (5) DVT prophylaxis Comment: SCDs Low risk Status and Disposition: Inpatient. Cont ICU monitoring this am, may be able to transfer to the telemetry unit later today.
[2017-09-01 09:54] LABS: BUN/Creatinine Ratio 6.5 (8-20); Calcium 9.2 mg/dL (8.6-10.3); EGFR Non-African American 159.4 (>60)
[2017-09-01] MEDS: Lisinopril TAB* 10 MG PO SCH (10:06)
[2017-09-01] MEDS: busPIRone TAB* 10 MG PO SCH ×2 (10:06→21:48)
[2017-09-01] MEDS: cloNIDine TAB* 0.1 MG PO SCH ×2 (10:06→21:49)
[2017-09-01] MEDS: Divalproex Sprinkle CAP* 125 MG PO SCH ×2 (10:07→21:51)
[2017-09-01] MEDS: levETIRAcetam TAB* 500 MG PO SCH ×2 (10:08→21:48)
[2017-09-01] MEDS: risperiDONE TAB* 1 MG PO SCH ×2 (10:08→21:47)
--- NOTE | 2017-09-01 11:41 | CONS ---
CONSULTATION REPORT: DATE OF CONSULT: 09/01/17 CURRENT LOCATION: ICU, room 6, bed 1. REASON FOR CONSULT: Seizures. HISTORY OF PRESENT ILLNESS: Mr. Lepe is a 22-year-old gentleman with a history of autism, nonverbal; hypertension; history of hyponatremia; history of elevated liver enzymes; history of hernia repair as a child. He currently resides in [facility] and visits his family on the weekends at times. His mother is at the bedside and was able to provide me some history. She states that prior to October of last year, he was having maybe 1 to 2 seizures every 6 months if that was generally well controlled, but starting in October, he started to have more seizures including flurries of seizures. He has been hospitalized 5 times in the last year. Most recently was hospitalized in February here and again in May in [place]. He has also had previous hospitalization earlier in the year in [place]. There is great deal of confusion about his medications. His primary care physician did speak with the treating neurology PA, who had seen him one time and clarified the medications. He was previously on Depakote 500 t.i.d. when he came into the hospital in February. It was noted that his liver enzymes were elevated and he was given lactulose. The dose of Depakote was decreased at that time to 500 mg b.i.d. In addition, per Neurology recommendations, he was started on Trileptal 300 mg p.o. b.i.d., which he was on at discharge. At some time, he was switched from Trileptal to Zonegran. His sodium levels had dropped. On Zonegran, he was noted to be lethargic and on 07/18/17 was switched to Keppra. Currently, he is on Depakote 500 b.i.d. and Keppra 500 b.i.d. He normally follows with a neurologist in [place], [place]. His mother states that he came home to visit over the weekend and did well overall. He was taken back to the home last night and the family received a call that he had 4 generalized tonic clonic seizures at the home. She has little details about the seizures, but states that they were shaking seizures. He has a history of loss of bladder and bowel control, but no tongue biting in the past. He was brought to the [facility] ER. At that time was found to have a Depakote level of 50. It was seen that he was on the Trileptal as well given his . I spoke with the ER physician last night at around 1:30 and advised that they give him 500 mg of Depakote x1 and initially recommended starting him on Depakote 750 b.i.d. Once the medication issues were clarified this morning, we changed the order and currently he is back on 500 mg b.i.d. Overnight, he has been in the ICU. He has been somnolent but there has been no further seizure activity reported. His mother at the bedside states that he appears to be improving and typically when he has a flurry of seizures, he is "out of it" for several days, but she feels like he has improved more quickly this time. He does have some shaking of his left leg. His mom states that this comes and goes with his anxiety levels. He did have an EEG this morning, results are pending. His sodium on admission was 130. On admission, his CBC did show hemoglobin of 12.5, hematocrit of 34, and platelet count of 138. Chemistry: Sodium of 130, potassium of 3.0, chloride of 95, BUN of 5, creatinine 0.66. His lactic acid yesterday was 4.1. Total creatine kinase of 852, CK-MB of 11.9, troponin I less than 0.01, C- reactive protein less than 1, total protein of 6.3. His mother states that he has been drinking excessive amounts of water. He drinks a gallon a day at least and is thirsty all the time. On admission, his benzodiazepines were positive. He did receive some for his seizures. Serum alcohol is less than 10. Valproic acid was 50. His mother states that he has not been sick recently. No fevers, chills, nausea, vomiting, diarrhea, or constipation. No headaches reported. No neck pain and he has been in his usual state of health otherwise. In the ER, he also had some imaging done. CT of the head reviewed showed no acute abnormalities. No evidence of any bleeds. He had a CT of the chest, abdomen, and pelvis. Report was reviewed. No definite acute abdominopelvic pathology, mild calcification of the kidney is noted, is unchanged compared to 03/27/17, may represent normal variation given absence of dilatation of the renal pelvis or visualized obstructing stone. CT of the lumbar spine reviewed showed some mild curvature of the thoracic and lumbar spine without acute fracture or dislocation visualized. CT of the thoracic spine as noted. CURRENT MEDICATIONS: Include: 1. BuSpar 10 mg p.o. b.i.d. 2. Clonidine 0.2 mg p.o. b.i.d. 3. Clotrimazole. 4. Depakote 500 mg p.o. b.i.d. 5. Lactulose 30 mL p.o. t.i.d. 6. Lisinopril 10 mg p.o. daily. 7. Protonix IV q.24 hours. 8. Risperdal 1 mg p.o. b.i.d. 9. Keppra 500 mg p.o. b.i.d. ALLERGIES: To CLARITHROMYCIN. FAMILY HISTORY: Noncontributory. SOCIAL HISTORY: No tobacco, alcohol, or drug use. He is currently at [facility], was at home prior to that for years. His mother and father are both healthcare proxies. REVIEW OF SYSTEMS: In 14-organ systems was difficult because of his current nonverbal state but per his mother, he has been doing well. Normally, he walks without assistance. He does have some anxiety and anger issues at times but gets very frustrated. PHYSICAL EXAM: Temp of 99.8, last night 98.3; heart rate of 88; respirations 16 ; pulse ox 97%; blood pressure 115/74. In general, he is a well-nourished, well - developed gentleman, lying in his hospital bed. He is nonverbal. He has some mildly dysmorphic facial features. The examination was difficult as he is unable to comply. HEENT: Normocephalic, atraumatic. His sclerae anicteric. Mucous membranes are slightly dry. Oropharynx is clear. Poor dentition. Neck is supple. Chest: Clear to auscultation bilaterally. Cardiovascular is regular rate and rhythm. Abdomen is nontender. Extremities: No clubbing, cyanosis, or edema. Skin is warm and dry. Neurologic Exam: He is awake, he is alert. He is nonverbal, unable to communicate. He does follow very simple commands. He will raise his arms, stick out his tongue but generally noncompliant with the examination. Cranial Nerves: His pupils are equally round and reactive to light. Extraocular muscles appeared to be intact. He looks in all quadrants. Visual lou were difficult to assess but he does blink. Face appears generally symmetric. Tongue is midline. Palate was difficult to visualize. Unable to test the sternocleidomastoid or trapezius. Motor Exam: He spontaneously moves extremities antigravity. There is no drift apparent in the upper or lower extremities. Generally, has some resistance but again difficult examination. DTRs are 2+ in the upper and lower extremities, upgoing Babinski's bilaterally. Finger- to-nose, rapid alternating movements could not be tested. He has occasional tremor-like movements of the left leg, which his mother states are baseline. He withdraws to pain x4. Gait could not be tested. DIAGNOSTIC STUDIES/LAB DATA: Lab work and imaging as above. ASSESSMENT AND PLAN: Mr. Lepe is a 22-year-old gentleman with history of nonverbal autism, history of hypertension, and history of seizures, well controlled in the past but over the last year has had more seizures. He has had a number of medication changes. Recently in February, his Depakote level was dropped from 500 t.i.d. to 500 b.i.d. due to increased liver enzymes. At that time, Trileptal was added 300 mg p.o. b.i.d. Subsequently, changed to Zonegran , but had some lethargy on that medication and on 07/18/17 was changed to Keppra 500 mg p.o. b.i.d. Currently, he is on 500 mg b.i.d. of Depakote and 500 mg p.o. b.i.d. of Keppra. When he came in, his Depakote level was low normal, initially received a dose of 500 mg, but I am going to continue his dose at 500 mg p.o. b.i.d. given the fact that he has had problems with liver enzymes in the past. Currently, his ALT and AST are normal. Alk phos is normal. Ammonia is 48. His Keppra dose is low. I am going to increase it to 750 mg p.o. b.i.d. and we will see how he responds. I suspect that his hyponatremia may be related to his Depakote as this is known to cause hyponatremia. Also, he drinks copious amounts of water and it is unclear whether he may have polydipsia or SIADH. This is something that will need to be followed closely. A Depakote level this morning as well as Keppra level pending but that will take several days. The plan is to continue his other medications unchanged. Risperdal can lower seizure threshold but given his behavioral issues, I think he probably needs his medication for now. We will follow up the EEG but as soon as he is stable medically, he can transfer to the floor and then eventually discharged home in the next day or two when he is stable on the new dose of Keppra. The plan will be to follow him up in my clinic [place] and make adjustments if necessary. Thank you for the opportunity to participate in his care. [id number]/[facility] #: [id number] [place]
[2017-09-02 04:40] LABS: Hematocrit 38 % (42-52); Hemoglobin 13.2 g/dl (14.0-18.0); Mean Corpuscular HGB Conc 35 g/dl (31-36); Mean Corpuscular Hemoglobin 30 pg (27-31); Mean Corpuscular Volume 87 fL (80-94); Mean Platelet Volume 8 um3 (7.4-10.4); Red Cell Distribution Width 13 % (10.5-15); White Blood Count 8.3 10^3/ul (3.5-10.8)
[2017-09-02 04:54] LABS: BUN/Creatinine Ratio 11.9 (8-20); Calcium 9.3 mg/dL (8.6-10.3); EGFR Non-African American 168.8 (>60); Potassium 3.7 mmol/L (3.5-5.0)
[2017-09-02 07:25] VITALS: BP 134/68
[2017-09-02] MEDS: busPIRone TAB* 10 MG PO SCH (08:36)
[2017-09-02] MEDS: cloNIDine TAB* 0.1 MG PO SCH (08:36)
[2017-09-02] MEDS: risperiDONE TAB* 1 MG PO SCH (08:36)
[2017-09-02] MEDS: Lisinopril TAB* 10 MG PO SCH (08:37)
[2017-09-02] MEDS: levETIRAcetam TAB* 500 MG PO SCH (08:37)
[2017-09-02] MEDS: Divalproex Sprinkle CAP* 125 MG PO SCH (08:38)
--- NOTE | 2017-09-02 22:54 | PN ---
PROGRESS NOTE: DATE OF ADMISSION: 09/01/17 DATE OF PROGRESS NOTE: 09/02/17 LOCATION: Currently in 433, bed 1. SUBJECTIVE: Overnight, the patient has done well. I spoke with his nurse this morning who states that there have been no new issues. His acute care occupational therapist, Lucille , is at the bedside as well, who knows him very well and she states that he looks back to his baseline. He has had no further seizure activity. He is nonverbal, but has been following commands, and she states he looks good. OBJECTIVE: Vital Signs: Temp of 98.1, pulse of 60, respiratory rate of 20, pulse ox is 99%, blood pressure 134/68. Blood pressures have been generally well controlled with the systolics high in the 153 and diastolics high in the 80s. In general, he is a well-nourished gentleman, sitting in his hospital bed. He is pleasant, although nonverbal. HEENT: He is atraumatic. His sclerae anicteric. His mucous membranes are moist. His oropharynx is clear. Poor dentition. Neck is supple. Chest: Clear to auscultation bilaterally. Cardiovascular: Regular rate and rhythm. Abdomen is nontender. Extremities: No clubbing, cyanosis, or edema. Skin: Warm and dry. Neurologic: He is awake , alert. He looks to person, but otherwise is not oriented. His speech is nonverbal. Cranial Nerves: His pupils are equally round and reactive to light. His extraocular muscles appear intact. He looks in all quadrants. His visual lou are difficult to assess, but he does not appear to have any gross deficits on exam. His face is generally symmetric. Hearing is grossly intact. Tongue is midline. Palate is symmetric. The examination was very difficult. He is noncompliant, but he is moving all extremities antigravity. There is no drift. He does squeeze my fingers and moves his toes. Sensation appears to be grossly intact to pain x4. DTRs were difficult to assess because of positioning , but there does not appear to be any focal hyperreflexia or hyporeflexia bilaterally. Toes are upgoing bilaterally. He follows very simple commands. He does not appear to be in any distress at this time. OVERNIGHT LAB WORK: His CBC this morning is significant for hemoglobin of 13.2 , which has increased from yesterday; hematocrit of 38, which has increased; platelet count of 139. Monocytes are 11.5. His chemistry this morning significant for creatinine of 0.59, which is low; glucose of 103. His CK went from 852 to 960 yesterday. CK-MB was 11.9, but his myoglobin was 88.1. Troponin was 0.01 on admission. His valproic acid level yesterday was 85. Keppra level is pending. ASSESSMENT AND PLAN: Mr. Lepe is a 22-year-old gentleman with a history of nonverbal autism, currently lives in a home, has a history of seizures prior to October of 2016, was having approximately 1 to 2 seizures every year, but over the last 10 months he has had worsening seizures with flurries at times, multiple admissions to the hospital. There were some confusion about his medications yesterday when he came into the hospital, but currently he is back on his Depakote at 500 mg b.i.d. He has a history of elevated liver enzymes on higher doses as well as toxicity. We will keep him on this dose. The Keppra that he was on previously was 500 mg p.o. b.i.d. We have increased that dose to 750 mg p.o. b.i.d. and he is tolerating that well. I spoke with his mother today and the home economics teacher, and the plan is to continue him on those medications unchanged. His CPK was elevated most likely from the seizures, I am going to recheck level today to make sure that it is trending downward. He appears to be back to his baseline and I think assuming his CPK is okay, he is okay to go home. I would like to see him back in my clinic in 4 to 6 weeks and his mom is going to work on arranging that. I have no other new recommendations at this time. [id number]/[facility] #: [id number] [facility]
--- NOTE | 2017-09-02 23:54 | EEG ---
ELECTROENCEPHALOGRAPHY: DATE OF STUDY: 09/01/17 LOCATION: The patient is an inpatient in ICU, room 6. ORDERING PHYSICIAN: Dr. Archer. CLINICAL PROBLEM: This is a 22-year-old nonverbal autistic young man, who was brought in by ambulance on the . Per EMS, he had 4 seizures in 25 minutes and was given 5 mg of Versed IM. The emergency room doctor reported to be noted decreased movement in his left arm and leg compared to the right side. EEG is requested to evaluate for epileptiform abnormalities. MEDICATIONS: 1. Valproic acid. 2. Oxcarbazepine. REPORT: The most notable feature of the interictal EEG is the presence of polymorphic, mixed frequency slowing in the left hemisphere when the patient closes his eyes and falls into a somewhat drowsy state. The slowing was of higher amplitude than the corresponding activity in the right hemisphere and lasted for approximately 1 minute. The slowing attenuated when the patient opened his eyes. Otherwise, the waking background showed appropriate organization with clearly- defined anterior to posterior voltage and frequency gradients. There was a well- defined posterior dominant rhythm of 9 Hz, which was symmetrical and showed normal reactivity. Anteriorly, there was an expected pattern of lower voltage, irregular, mixed faster frequencies. There was excess beta activity noted frontocentrally, which was more prominent over the left hemisphere. Hypoventilation and photic stimulation were not performed. Attenuation of the occipital rhythm accompanied drowsiness, but there were no well- developed sleep spindles to indicate the transition to stage 2 sleep. Throughout the recording, there were no epileptiform discharges. CLINICAL IMPRESSION: This is an abnormal waking and drowsy EEG due to the presence of period of left hemispheric polymorphic slowing, which occurred when the patient was in a quiet state. These findings are suggestive of underlying neuronal dysfunction in the left hemisphere. There are no epileptiform abnormalities. [id number]/[facility] #: [id number] [facility]
--- NOTE | 2017-09-03 04:40 | DS ---
CC: Dr. Blayne Sheehan; Dr. Lamar * DISCHARGE SUMMARY: DATE OF ADMISSION: 08/31/17 DATE OF DISCHARGE: 09/02/17 PRIMARY CARE PROVIDER: Dr. Blayne Sheehan. CONSULTING NEUROLOGIST: Dr. Austen Lamar. DISCHARGING PROVIDER: MAGUI Alexander SUPERVISING PHYSICIAN: Yuko Gu MD * (DICTATED BY MAGUI ALEXANDER) DISCHARGE DIAGNOSES: 1. Status epilepticus with known seizure disorder. 2. Hyponatremia - uncertain of etiology. SECONDARY DISCHARGE DIAGNOSIS: Severe autism and nonverbal as a result of this. HOSPITAL IMAGIN. CT of the brain shows no acute process. 2. Chest x-ray shows no acute process. 3. CT of the chest, abdomen and pelvis shows no definitive acute abdominal pelvic pathology. 4. Mild inflammatory infiltrate may be present in the left lung. 5. CT of the lumbar spine small curvature of the thoracic and lumbar spine without acute fracture or dislocation. 6. Thoracic spine CT shows mild curvature of the thoracic and lumbar spine without acute fracture or dislocation. DISCHARGE MEDICATIONS: 1. Acetaminophen 650 mg p.o. q.4 hours as needed for pain or fever. 2. Cetirizine 10 mg p.o. at bedtime. 3. Clonidine 0.2 mg p.o. twice daily. 4. Clotrimazole cream 1% applied topically twice daily as needed. 5. Depakote Sprinkle 500 mg p.o. twice daily. 6. Lactulose 30 mL p.o. 3 times daily. 7. Lisinopril 10 mg p.o. daily. 8. Magnesium citrate 300 mL p.o. daily as needed for severe constipation. 9. MiraLAX 17 g p.o. daily as needed for constipation. 10. BuSpar 10 mg p.o. t.i.d. 11. Keppra 750 mg p.o. twice daily. 12. Risperdal 1 mg p.o. twice daily. Medication changes: 1. Increase Keppra to 750 mg p.o. twice daily. HOSPITAL COURSE: This is a 22-year-old gentleman with severe autism, who is nonverbal with a seizure disorder, who presented via ambulance after sustaining 4 seizures in a 20-minute period. He received benzodiazepine en route. He did not have any additional seizures in the emergency department. Depakote level was borderline subtherapeutic and he received an additional 500 mg IV dose in the emergency department. The patient was subsequently admitted to the ICU for further monitoring and remained seizure free. Initial labs demonstrated a mild hyponatremia with a sodium of 130, potassium also noted to be low at 3.0. Lactic acid was elevated as we expected post seizure to 4.1. CBC was within normal limits. Toxicology screen was unremarkable. There was some initial confusion as to the patient's medication regimen at home , but clarification between the house nurse and his primary neurologist helped. It appears that the patient has had multiple hospitalizations. Specifically, this is his fifth seizure-related hospitalization in the last 12 months and prior to that, his seizures were well controlled. His last admission to our hospital was in February of this year at which point, he had transaminitis and mild hyperammonemia likely related to his Depakote. The dose was decreased from 500 three times daily to 500 twice daily, and he was started on Trileptal at that time. A few months later, the patient was then hospitalized at [facility] and was noted to be severely hyponatremic and his Trileptal was discontinued and he was started on Zonegran. Nursing staff felt that the Zonegran caused him to be lethargic and this was discontinued at the end of June 2017 and he was subsequently started on Keppra 500 mg twice daily. At the time of admission , he was on Depakote 500 mg twice daily and Keppra 500 mg twice daily. As mentioned above, he received an additional 500 mg of Depakote in the emergency department IV and his Keppra dose was then subsequently increased to 750 mg twice daily. The patient's hyponatremia improved with normal saline. Caregivers gave a history of excessive free water intake, which if his hyponatremia was secondary to primary polydipsia, I would not have expected him to respond as well to normal saline as he did. Unfortunately, osmolality and urine studies are pending at the time of discharge. The patient remained asymptomatic throughout his hospital stay. There was note for possible infiltrate on CT of his chest, but he had no leukocytosis, fever, or cough that would suggest that this was infectious in origin, but may represent some mild atelectasis. There was no specific intervention for this. DISPOSITION AND FOLLOWUP PLAN: The patient is being discharged to home where he lives in an in [place] and spends the weekends with his parents. Medication change includes increasing his Keppra to 750 mg twice daily as noted above. The patient's mother wishes to establish Neurology care with Dr. Lamar. Would recommend a followup in approximately 1 month. Also, recommend followup basic metabolic panel in approximately 1 week to ensure that this hyponatremia is not a recurrent problem and possible trigger for his recurrent seizures. TIME SPENT: Greater than 30 minutes on this discharge. MAGUI ALEXANDER [id number]/CPS #: [id number] GERALD
== END 2017-09-02 11:35 | disposition home or self-care (01) | DRG 53 ==
LOC: ED 22:24 → ICU 09-01 03:07 → ED 09-01 03:53 → MEDTELE 09-01 18:45
PROVIDERS: ADMIT Internal Medicine; ATTEND Internal Medicine
DX: G40.401 Other generalized epilepsy and epileptic syndromes, not intractable, with status epilepticus (principal); E83.42 Hypomagnesemia; E87.1 Hypo-osmolality and hyponatremia; F84.0 Autistic disorder; I10 Essential (primary) hypertension; M41.9 Scoliosis, unspecified; E87.6 Hypokalemia; Z79.1 Long term (current) use of non-steroidal anti-inflammatories (NSAID); Z79.899 Other long term (current) drug therapy
CPT/HCPCS: 36415; 70450; 71010; 71250; 72128; 72131; 74176; 80048; 80053; 80164; 80177; 80183; 80307; 80320; 80329; 81003; 82140; 82550; 82553; 83605; 83690; 83735; 83874; 83880; 83930; 84443; 84484; 85025; 85610; 85730; 86140; 87641; 93005; 95816; A9270-GY; G0480; J3475; J3480

== ENCOUNTER 2017-10-05 22:04 | Emergency (ER) | payer BC, MEDICAID ==
[2017-10-05 23:05] LABS: Comments Flag Yes; Hematocrit 39 % (42-52); Hemoglobin 14.3 g/dl (14.0-18.0); Mean Corpuscular HGB Conc 37 g/dl (31-36); Mean Corpuscular Hemoglobin 30 pg (27-31); Mean Corpuscular Volume 83 fL (80-94); Mean Platelet Volume 8 um3 (7.4-10.4); Red Blood Count 4.72 10^6/ul (4.0-5.4); Red Cell Distribution Width 13 % (10.5-15); White Blood Count 9.4 10^3/ul (3.5-10.8)
[2017-10-05 23:19] LABS: Albumin 4.6 g/dL (3.2-5.2); BUN/Creatinine Ratio 12.3 (8-20); Calcium 10.1 mg/dL (8.6-10.3); EGFR African American 194.1 (>60); EGFR Non-African American 150.9 (>60); Globulin 2.7 g/dL (2-4); Magnesium 1.8 mg/dL (1.9-2.7); Potassium 3.6 mmol/L (3.5-5.0); Total Bilirubin 0.6 mg/dL (0.2-1.0); Total Protein 7.3 g/dL (6.4-8.9)
[2017-10-05] MEDS ORDERED: NS 0.9% 1000 ML* 1,000 ML IV ONE (23:22)
--- NOTE | 2017-10-05 23:23 | ED ---
Seizure - HPI Summary HPI Summary: 22 male presents to ED with parents and DD staff due to having a seizure around 8:45pm tonight. Patient has history of seizures and currently takes depakote and keppra. Took appropriate doses today. No recent illness or complaints. Has been acting normally and appropriately. Patient sees Dr Lamar neurologist who has been adjusting medications due to having increased frequency /clusters of seizures. Patient is non verbal and has a cognitive impairment. Unable to communicate. Parents and staff do not have any complaints and state he has been acting normally. Was visiting home and an hour after arriving back to facility had a seizure. States he did have full body convulsions and was very similar to typical seizure, lasting approximately 3 minutes. Was post- ictal after seizure, however is now acting appropriately. Recently had depakote dosage adjusted however due to it becoming toxic went back to down to 500mg BID. Patient has a newly diagnosed bulging disc in back and is awaiting further imaging/MRI as pain may be triggering increased frequency of seizures. No trauma /injury during seizure, witnessed. Denies bladder/bowel incontinence and nausea/ vomiting. NO recent illness, fever/chills. Taking medications appropriately. - History Of Current Complaint Chief Complaint: EDSeizure Time Seen by Provider: 10/05/17 23:22 Hx Obtained From: Family/Coordinator Of Health Services - parents and staff member from [facility] facility Onset/Duration: Sudden Onset, Lasting Minutes, Resolved Severity Of Seizure: Self-Limited - 3 min Location Of Seizure: All Extremities Character: Generalized Clonic-Tonic Aggravating Factor(s): Nothing Alleviating Factor(s): Spontaneous Resolution Related History: Medication Compliant - Allergies/Home Medications Allergies/Adverse Reactions: Allergies Allergy/AdvReac Type Severity Reaction Status Date / Time Clarithromycin [From Biaxin] Allergy Unknown Verified 10/05/17 22:13 Reaction Details PMH/Surg Hx/FS Hx/Imm Hx Cardiovascular History: Reports: Hx Hypertension Sensory History: Denies: Hx Contacts or Glasses, Hx Hearing Aid Opthamlomology History: Denies: Hx Contacts or Glasses Neurological History: Reports: Hx Seizures Psychiatric History: Reports: Hx Anxiety, Hx Autism, Other Psychiatric Issues/ Disorders - Severe Autism - Surgical History Surgery Procedure, Year, and Place: hernia repair x2 at 3mo old, tail bone absyss drained - Immunization History Immunizations Up to Date: Yes Infectious Disease History: Unable to Obtain/Confirm Infectious Disease History: Denies: Traveled Outside the [place] in Last 30 Days - Family History Known Family History: Positive: Unknown - Level 5 Caveat due to autism Family History: LEVEL 5 CAVEAT - NON-VERBAL SECONDARY TO AUTISM - Social History Alcohol Use: None Hx Substance Use: No Substance Use Type: Reports: None Hx Tobacco Use: No Smoking Status (MU): Never Smoked Tobacco Review of Systems - ROS Summary Review of Systems Summary: obtained via parents and jelly filter tender Constitutional: Negative Cardiovascular: Negative Respiratory: Negative All Other Systems Reviewed And Are Negative: Yes Physical Exam Triage Information Reviewed: Yes Vital Signs On Initial Exam: Initial Vitals Temp Pulse Resp BP Pulse Ox 99.1 F 105 16 150/80 96 10/05/17 22:08 10/05/17 22:08 10/05/17 22:08 10/05/17 22:08 10/05/17 22:08 Vital Signs Reviewed: Yes Appearance: Positive: Well-Appearing, No Pain Distress, Well-Nourished Skin: Positive: Warm, Skin Color Reflects Adequate Perfusion, Dry, Other - no signs of trauma. Negative: Cold, Numb, Cyanosis @, Diaphoretic, Jaundiced, Erythema @ Head/Face: Positive: Normal Head/Face Inspection. Negative: Scalp Eyes: Positive: EOMI, AYAKA, Conjunctiva Clear ENT: Positive: Normal ENT inspection, Hearing grossly normal, Pharynx normal, TMs normal Neck: Positive: Supple, Nontender Respiratory/Lung Sounds: Positive: Clear to Auscultation, Breath Sounds Present. Negative: Rales, Rhonchi, Wheezes Cardiovascular: Positive: Normal, RRR, Pulses are Symmetrical in both Upper and Lower Extremities, Murmur Abdomen Description: Positive: Nontender, No Organomegaly, Soft Bowel Sounds: Positive: Present Musculoskeletal: Positive: Normal, Strength/ROM Intact Neurological: Positive: Normal - neuro exam normal per patient's chronic disability, non verbal, autistic, cognitive impairment, Sensory/Motor Intact, NV Bundle Intact Distally - Lacey Coma Scale Best Eye Response: 4 - Spontaneous Best Motor Response: 6 - Obeys Commands Best Verbal Response: 5 - Oriented Diagnostics - Vital Signs Vital Signs Temp Pulse Resp BP Pulse Ox 10/05/17 22:18 111 14 96 10/05/17 22:17 150/80 10/05/17 22:08 99.1 F 105 16 150/80 96 - Laboratory Lab Results: Lab Results 10/05/17 10/05/17 10/05/17 Range/Units 22:58 22:58 22:58 WBC 9.4 (3.5-10.8) 10^3/ul RBC 4.72 (4.0-5.4) 10^6/ul Hgb 14.3 (14.0-18.0) g/dl Hct 39 L (42-52) % MCV 83 (80-94) fL MCH 30 (27-31) pg MCHC 37 H (31-36) g/dl RDW 13 (10.5-15) % Plt Count 158 (150-450) 10^3/ul MPV 8 (7.4-10.4) um3 Neut % (Auto) 62.3 (38-83) % Lymph % (Auto) 22.6 L (25-47) % Clinch % (Auto) 11.9 H (1-9) % Eos % (Auto) 2.8 (0-6) % Baso % (Auto) 0.4 (0-2) % Absolute Neuts (auto) 5.9 (1.5-7.7) 10^3/ul Absolute Lymphs (auto) 2.1 (1.0-4.8) 10^3/ul Absolute Monos (auto) 1.1 H (0-0.8) 10^3/ul Absolute Eos (auto) 0.3 (0-0.6) 10^3/ul Absolute Basos (auto) 0 (0-0.2) 10^3/ul Absolute Nucleated RBC 0 10^3/ul Nucleated RBC % 0 INR (Anticoag Therapy) 1.05 (0.89-1.11) Sodium 132 L (133-145) mmol/L Potassium 3.6 (3.5-5.0) mmol/L Chloride 97 L (101-111) mmol/L Carbon Dioxide 26 (22-32) mmol/L Anion Gap 9 (2-11) mmol/L BUN 8 (6-24) mg/dL Creatinine 0.65 L (0.67-1.17) mg/dL Est GFR ( Amer) 194.1 (>60) Est GFR (Non-Af Amer) 150.9 (>60) BUN/Creatinine Ratio 12.3 (8-20) Glucose 113 H (70-100) mg/dL Lactic Acid (0.5-2.0) mmol/L Calcium 10.1 (8.6-10.3) mg/dL Magnesium 1.8 L (1.9-2.7) mg/dL Total Bilirubin 0.60 (0.2-1.0) mg/dL AST 34 (13-39) U/L ALT 21 (7-52) U/L Alkaline Phosphatase 65 (34-104) U/L Total Protein 7.3 (6.4-8.9) g/dL Albumin 4.6 (3.2-5.2) g/dL Globulin 2.7 (2-4) g/dL Albumin/Globulin Ratio 1.7 (1-3) Valproic Acid 89.0 (50-100) mcg/mL 10/05/17 Range/Units 22:58 WBC (3.5-10.8) 10^3/ul RBC (4.0-5.4) 10^6/ul Hgb (14.0-18.0) g/dl Hct (42-52) % MCV (80-94) fL MCH (27-31) pg MCHC (31-36) g/dl RDW (10.5-15) % Plt Count (150-450) 10^3/ul MPV (7.4-10.4) um3 Neut % (Auto) (38-83) % Lymph % (Auto) (25-47) % Clinch % (Auto) (1-9) % Eos % (Auto) (0-6) % Baso % (Auto) (0-2) % Absolute Neuts (auto) (1.5-7.7) 10^3/ul Absolute Lymphs (auto) (1.0-4.8) 10^3/ul Absolute Monos (auto) (0-0.8) 10^3/ul Absolute Eos (auto) (0-0.6) 10^3/ul Absolute Basos (auto) (0-0.2) 10^3/ul Absolute Nucleated RBC 10^3/ul Nucleated RBC % INR (Anticoag Therapy) (0.89-1.11) Sodium (133-145) mmol/L Potassium (3.5-5.0) mmol/L Chloride (101-111) mmol/L Carbon Dioxide (22-32) mmol/L Anion Gap (2-11) mmol/L BUN (6-24) mg/dL Creatinine (0.67-1.17) mg/dL Est GFR ( Amer) (>60) Est GFR (Non-Af Amer) (>60) BUN/Creatinine Ratio (8-20) Glucose (70-100) mg/dL Lactic Acid 1.5 (0.5-2.0) mmol/L Calcium (8.6-10.3) mg/dL Magnesium (1.9-2.7) mg/dL Total Bilirubin (0.2-1.0) mg/dL AST (13-39) U/L ALT (7-52) U/L Alkaline Phosphatase (34-104) U/L Total Protein (6.4-8.9) g/dL Albumin (3.2-5.2) g/dL Globulin (2-4) g/dL Albumin/Globulin Ratio (1-3) Valproic Acid (50-100) mcg/mL Result Diagrams: 10/05/17 22:58 10/05/17 22:58 Lab Statement: Any lab studies that have been ordered have been reviewed, and results considered in the medical decision making process. - EKG EKG Cardiac Rate: NL EKG Rhythm: Sinus Rhythm ST Segment: Normal Ectopy: None EKG Interpretation: NSR, LVH EKG Comparison: No Significant Change Course/Dx - Course Course Of Treatment: labs and urinalysis obtained and unremarkable. depakote level normal range. medications given as diected. no other concerning signs or etiology of seizure. only had one, no seizures while in ED. Due to protocol at facility patient has to be evaluated after seizure. suggested possibly giving more keppra increasing dose for 750mg to 1000mg however staff and parents stated they would like to wait for Dr Lamar neurologist to evaluate as he has been working with patient on adjusting medications. Patient was observed for 3 hours after seizure without any symptoms or recurrent seizure. Spoke with Dr Pike about case who agrees. No other concerns or emergent etiology such as infection causing seizure. Educated staff and parents. Aware of worsening signs and symptoms to watch out for. Follow up with pcp and neuro within 1 week. pending keppra level. - Diagnoses Differential Diagnosis/HQI/PQRI: Positive: Known Seizure Disorder, Other - seizure Provider Diagnoses: Seizure Discharge - Discharge Plan Condition: Stable Disposition: HOME Patient Education Materials: Recurrent Seizures in Adults (ED) Referrals: Sissy TODD,Blayne Waller [Primary Care Provider] - Additional Instructions: Recommend having follow up with neurologist, call tomorrow to make an appointment to be seen within 1 week. Suggested increasing Keppra dose from 750mg to 1000mg BID, possibly, however will wait for follow up with neurologist and level. Any new, recurrent or worsening symptoms please return and seek medical attention, as discussed. Follow up with PCP within 1 week.
[2017-10-05 23:47] LABS: Urine Bacteria Absent (Absent); Urine Bilirubin Negative (Negative); Urine Glucose Negative (Negative); Urine Nitrite Negative (Negative)
[2017-10-06 00:19] VITALS: BP 112/64
== END 2017-10-06 00:35 | disposition home or self-care (01) ==
LOC: ED 22:04
DX: G40.909 Epilepsy, unspecified, not intractable, without status epilepticus (principal); I10 Essential (primary) hypertension; F84.0 Autistic disorder; F41.9 Anxiety disorder, unspecified
CPT/HCPCS: 36415; 80053; 80164; 80177; 81003; 81015; 83605; 83735; 85025; 85610; 93005; 99282

== ENCOUNTER 2017-10-12 21:48 | Inpatient (IN) | payer BC, MEDICAID ==
[2017-10-12] MEDS ORDERED: NS 0.9% 1000 ML* 1,000 ML IV ONE (22:09)
[2017-10-12 23:28] LABS: Hematocrit 40 % (42-52); Hemoglobin 14.4 g/dl (14.0-18.0); Mean Corpuscular HGB Conc 36 g/dl (31-36); Mean Corpuscular Hemoglobin 30 pg (27-31); Mean Corpuscular Volume 83 fL (80-94); Mean Platelet Volume 8 um3 (7.4-10.4); Red Cell Distribution Width 13 % (10.5-15); White Blood Count 12.7 10^3/ul (3.5-10.8)
[2017-10-12 23:30] LABS: Comments Flag Yes
[2017-10-12 23:40] LABS: Albumin 4.8 g/dL (3.2-5.2); BUN/Creatinine Ratio 6.8 (8-20); Calcium 10.1 mg/dL (8.6-10.3); EGFR Non-African American 168.8 (>60); Globulin 2.7 g/dL (2-4); Magnesium 1.7 mg/dL (1.9-2.7); Potassium 3.6 mmol/L (3.5-5.0); Total Bilirubin 0.9 mg/dL (0.2-1.0); Total Protein 7.5 g/dL (6.4-8.9); Troponin I 0.01 ng/mL (<0.04)
[2017-10-12] MEDS ORDERED: LORazepam INJ* 2 MG/ML 1 ML VIAL ONE (23:53)
[2017-10-12] MEDS ORDERED: levETIRAcetam IV* 1,000 MG in NS 0.9% 100 ML* 100 ML IVPB ONE (23:57)
[2017-10-13] MEDS ORDERED: NS 0.9% 1000 ML* 2,000 ML IV ONE (00:02)
[2017-10-13] MEDS ORDERED: LORazepam INJ* 2 MG/ML 1 ML VIAL IV PUSH ONE (00:04)
[2017-10-13] MEDS ORDERED: cefTRIAXone(*) 2 GM in NS 0.9% 100 ML* 100 ML IVPB ONE (00:09)
[2017-10-13] MEDS ORDERED: Acetaminophen SUPP* 650 MG SUPP PR ONE (00:09)
[2017-10-13] MEDS ORDERED: Lidocaine 1% INJ* 10 MG/ML 30 ML SDV ONE (01:48)
[2017-10-13] MEDS ORDERED: Vancomycin(*) 1,500 MG in NS 0.9% 250 ML* 250 ML IVPB ONE (02:14)
[2017-10-13] MEDS ORDERED: NS 0.9% IVPB SCH ×2 (03:00→12:00)
[2017-10-13] MEDS ORDERED: ACYCLOVIR IVPB SCH ×2 (03:00→12:00)
--- NOTE | 2017-10-13 03:19 | ED ---
Chris Oates Nikita, scribed for Nacho Truong on 10/12/17 at 2213 . Neurological HPI - HPI Summary HPI Summary: LEVEL 5 CAVEAT DUE TO SEIZURE This patient is a 22 year old M BIBA to ED with a chief complaint of seizure since 2099. Per staff, pt had a seizure type activity on the way home from a visit with family; similar to absent seizure. Pt has a hx of seizures. - History of Current Complaint Chief Complaint: EDSeizure Stated Complaint: SEIZURES Time Seen by Provider: 10/12/17 21:54 Hx Obtained From: Patient Hx From Patient Unobtainable Due To: Other - seizure Onset/Duration: Sudden Onset, Started hours ago, Still Present Timing: Constant Number of Seizures: 1 Pain Intensity: 0 Pain Scale Used: 0-10 Numeric - Additional Pertinent History Primary Care Physician: ROGER - Allergy/Home Medications Allergies/Adverse Reactions: Allergies Allergy/AdvReac Type Severity Reaction Status Date / Time Clarithromycin [From Biaxin] Allergy Unknown Verified 10/05/17 22:13 Reaction Details PMH/Surg Hx/FS Hx/Imm Hx Cardiovascular History: Reports: Hx Hypertension Sensory History: Denies: Hx Contacts or Glasses, Hx Hearing Aid Opthamlomology History: Denies: Hx Contacts or Glasses Neurological History: Reports: Hx Seizures Psychiatric History: Reports: Hx Anxiety, Hx Autism, Other Psychiatric Issues/ Disorders - Severe Autism - Surgical History Surgery Procedure, Year, and Place: hernia repair x2 at 3mo old, tail bone absyss drained Infectious Disease History: No Infectious Disease History: Denies: Traveled Outside the [place] in Last 30 Days - Family History Known Family History: Positive: Unknown - Level 5 Caveat due to autism Family History: LEVEL 5 CAVEAT - NON-VERBAL SECONDARY TO AUTISM - Social History Alcohol Use: None Hx Substance Use: No Substance Use Type: Reports: None Hx Tobacco Use: No Smoking Status (MU): Never Smoked Tobacco Review of Systems - ROS Summary Review of Systems Summary: LEVEL 5 CAVEAT Neurological: Other - seizure; LEVEL 5 CAVEAT All Other Systems Reviewed And Are Negative: Yes Physical Exam Triage Information Reviewed: Yes Vital Signs On Initial Exam: Initial Vitals Temp Pulse Resp BP Pulse Ox 99.8 F 83 16 128/102 98 10/12/17 21:52 10/12/17 21:52 10/12/17 21:52 10/12/17 21:52 10/12/17 21:52 Vital Signs Reviewed: Yes Completion Of Physical Exam Limited Due To: Level 5 Respiratory/Lung Sounds: Positive: Clear to Auscultation, Breath Sounds Present Cardiovascular: Positive: RRR, Pulses are Symmetrical in both Upper and Lower Extremities Abdomen Description: Positive: Nontender, Soft Bowel Sounds: Positive: Present Neurological: Positive: Other - Alert and confused Diagnostics - Vital Signs Vital Signs Temp Pulse Resp BP Pulse Ox 10/12/17 21:52 99.8 F 83 16 128/102 98 - Laboratory Lab Results: Lab Results 10/12/17 10/12/17 10/12/17 Range/Units 22:45 22:45 22:45 WBC 12.7 H (3.5-10.8) 10^3/ul RBC 4.80 (4.0-5.4) 10^6/ul Hgb 14.4 (14.0-18.0) g/dl Hct 40 L (42-52) % MCV 83 (80-94) fL MCH 30 (27-31) pg MCHC 36 (31-36) g/dl RDW 13 (10.5-15) % Plt Count 202 (150-450) 10^3/ul MPV 8 (7.4-10.4) um3 Neut % (Auto) 80.6 (38-83) % Lymph % (Auto) 10.9 L (25-47) % Kimball % (Auto) 7.4 (1-9) % Eos % (Auto) 0.8 (0-6) % Baso % (Auto) 0.3 (0-2) % Absolute Neuts (auto) 10.2 H (1.5-7.7) 10^3/ul Absolute Lymphs (auto) 1.4 (1.0-4.8) 10^3/ul Absolute Monos (auto) 0.9 H (0-0.8) 10^3/ul Absolute Eos (auto) 0.1 (0-0.6) 10^3/ul Absolute Basos (auto) 0 (0-0.2) 10^3/ul Absolute Nucleated RBC 0 10^3/ul Nucleated RBC % 0 INR (Anticoag Therapy) 1.09 (0.89-1.11) APTT 35.7 (26.0-36.3) seconds Sodium 120 L (133-145) mmol/L Potassium 3.6 (3.5-5.0) mmol/L Chloride 86 L (101-111) mmol/L Carbon Dioxide 25 (22-32) mmol/L Anion Gap 9 (2-11) mmol/L BUN 4 L (6-24) mg/dL Creatinine 0.59 L (0.67-1.17) mg/dL Est GFR ( Amer) 217.0 (>60) Est GFR (Non-Af Amer) 168.8 (>60) BUN/Creatinine Ratio 6.8 L (8-20) Glucose 100 (70-100) mg/dL Calcium 10.1 (8.6-10.3) mg/dL Magnesium 1.7 L (1.9-2.7) mg/dL Total Bilirubin 0.90 (0.2-1.0) mg/dL AST 60 H (13-39) U/L ALT 26 (7-52) U/L Alkaline Phosphatase 61 (34-104) U/L Troponin I 0.01 (<0.04) ng/mL Total Protein 7.5 (6.4-8.9) g/dL Albumin 4.8 (3.2-5.2) g/dL Globulin 2.7 (2-4) g/dL Albumin/Globulin Ratio 1.8 (1-3) Valproic Acid 68.0 (50-100) mcg/mL Result Diagrams: 10/12/17 22:45 10/12/17 22:45 Lab Statement: Any lab studies that have been ordered have been reviewed, and results considered in the medical decision making process. - CT Head CT Interpretation Completed By: Radiologist - No acute intracranial abnormality. No hemorrhage. No visible infarct or mass. Osseous structures are intact. ED physician has reviewed this radiology report and agrees. - EKG 0126 Cardiac Rate: NL EKG Rhythm: Sinus Rhythm - 82 bpm EKG Interpretation: no acute changes Course/Dx - Course Assessment/Plan: LEVEL 5 CAVEAT DUE TO SEIZURE. This patient is a 22 year old M BIBA to ED with a chief complaint of seizure since 2100. Per staff, pt had a seizure type activity on the way home from a visit with family; similar to absent seizure. Pt has a hx of seizures. In the ED course, pt was given fluids. Head CT reveals No acute intracranial abnormality. No hemorrhage. No visible infarct or mass. Osseous structures are intact. EKG reveals NSR at 82 bpm and no acute changes. Bloodwork/UA obtained. Consulted Dr. Jett at 0000 who accepts pt for admission. Pt will be admitted. Spinal tap done at 0134 was unsuccessful. CRITICAL CARE TIME 1 HOUR - Differential Dx Differential Diagnoses Neuro: Positive: Cerebrovascular Accident, Meningitis, Postical - sepsis,, Seizure Disorder, Other - status epilepticus, AMS, fever, sepsis - Diagnoses Provider Diagnoses: Status epilepticus, Altered mental status, Fever, Sepsis - Physician Notifications Discussed Care Of Patient With: Sivakumar Jett Time Discussed With Above Provider: 00:00 Instructed by Provider To: Other - Consulted Dr. Jett who accepts pt for admission. - Critical Care Time Critical Care Time: 30-74 min Discharge - Discharge Plan Condition: Stable Disposition: ADMITTED TO [facility] Referrals: Sissy TODD,Blayne Waller [Primary Care Provider] - The documentation as recorded by the Chris stoner Nikita accurately reflects the service I personally performed and the decisions made by , Nacho Truong.
[2017-10-13] MEDS ORDERED: LORazepam INJ* 2 MG/ML 1 ML VIAL IV PRN (04:10)
[2017-10-13] MEDS ORDERED: Ondansetron INJ* 2 MG/ML VIAL IV PRN (04:10)
[2017-10-13] MEDS ORDERED: NS 0.9% 1000 ML* 1,000 ML IV SCH ×2 (04:15→04:59)
[2017-10-13] MEDS ORDERED: Polyethylene Glycol 3350* 17 GM PACKET PO PRN (04:43)
[2017-10-13 04:56] LABS: Prolactin 7.2 ng/mL (1.0-20.0)
[2017-10-13] MEDS: Acetaminophen TAB* 325 MG PO PRN (05:01)
[2017-10-13 05:36] LABS: Urine Bacteria Absent (Absent); Urine Bilirubin Negative (Negative); Urine Glucose Negative (Negative); Urine Nitrite Negative (Negative)
[2017-10-13 06:41] LABS: Hematocrit 36 % (42-52); Mean Corpuscular HGB Conc 37 g/dl (31-36); Mean Corpuscular Hemoglobin 31 pg (27-31); Mean Corpuscular Volume 84 fL (80-94); Mean Platelet Volume 8 um3 (7.4-10.4); Red Blood Count 4.28 10^6/ul (4.0-5.4); Red Cell Distribution Width 13 % (10.5-15); White Blood Count 8.1 10^3/ul (3.5-10.8)
[2017-10-13 06:42] LABS: Comments Flag Yes
[2017-10-13 06:54] LABS: BUN/Creatinine Ratio 7.8 (8-20); Calcium 8.9 mg/dL (8.6-10.3); EGFR African American 197.6 (>60); EGFR Non-African American 153.6 (>60); Potassium 3.9 mmol/L (3.5-5.0)
--- NOTE | 2017-10-13 07:25 | HP ---
H&P (Free Text) History and Physical: PCP: Hina Sheehan MD Neurology: Nikki Lamar MD Date/Time: 10/13/2017 0400 CC: seizure, fever HPI: Mr Lepe is a 22YO male resident of [facility] HX non-verbal autism & seizure disorder who had been home for the holiday when the [employer] jber picked him up to return. On the way, his staff member states he had a brief episode of shaking and then started looking out the window. Upon arrival to [facility] he was awake staring off, but otherwise would not get out of the van or respond and so EMS was called. While in ED he was witnessed to have an ~3minute convulsive episode associated with a fever of 103.3F. A lumbar puncture was unsuccessfully attempted. CXR was negative. Urine had only 3+ blood after taylor insertion. Admission will be for seizure with fever r/o meningitis. PMedHx non-verbal autism HTN weight loss Ambulatory Orders Acetaminophen [Tylenol] 650 mg PO Q4HR PRN 02/17/17 Cetirizine HCl [Zyrtec Allergy 10 MG TAB] 10 mg PO BEDTIME 02/17/17 Clonidine HCl [Catapres 0.2 MG TAB] 0.2 mg PO BID 02/17/17 Divalproex Sodium [Depakote Sprinkles] 500 mg PO BID 02/17/17 Lisinopril TAB* [Prinivil TAB 10 MG*] 10 mg PO DAILY 02/17/17 Polyethylene Glycol 3350* [Miralax*] 17 gm PO DAILY PRN 02/17/17 busPIRone TAB* [Buspar TAB*] 10 mg PO TID 02/17/17 risperiDONE TAB* [Risperdal*] 3 mg PO QPM 02/17/17 Clotrimazole 1% CREAM* [Clotrimazole 1%*] 1 applic TOPICAL BID PRN 09/01/17 clonazePAM TAB(*) [KlonoPIN TAB(*)] 0.25 mg PO BID 10/13/17 levETIRAcetam TAB* [Keppra TAB*] 500 mg PO BID 10/13/17 Allergies Clarithromycin [From Biaxin] Allergy (Verified 10/05/17 22:13) Unknown Reaction Details PSurgHx B inguinal hernia repairs as infant pilonidal cyst abscess excision SocHx: no tobacco, alcohol, or recreational drugs; single, no children, resides at [facility]; disabled; full code status FamHx: Mother: healthy; Father: unknown; no siblings ROS: Mother relates an unexplained 40-50# weightloss over the past year with increased seizure activity; otherwise reviewed and all were negative vitals: Vital Signs Temp 39.0 C 10/13/17 03:59 Pulse 108 10/13/17 04:00 Resp 16 10/13/17 01:00 BP 158/77 10/13/17 04:00 Pulse Ox 99 10/13/17 04:00 Intake & Output 10/12/17 10/12/17 10/13/17 11:59 23:59 11:59 Intake Total 2450 Output Total 4100 Balance -1650 Weight 90.718 kg Intake: IV Fluids 2450 Oral 0 Output: Urine 1650 Taylor 2450 Other: Estimated Void Large # Bowel Movements 0 Constitutional: NAD, normally developed, overweight young white male HEENM: atraumatic; sclera/conjunctiva: anicteric/mildly injected OU; hearing: unable to assess; oropharynx: clear, mucosa tacky Neck: soft tissue: no nuchal rigidity; thyroid: normal Pulmonary: clear to auscultation bilaterally, good aeration, no accessory muscle use CV: RR/RR, normal S1S2, 2-3/6 holosystolic area best heard over mitral area, no carotid bruit, no jugular venous distention, 2+ B DP/PT, no edema Abdominal: soft, non-distended, non-tender, no rebound/guarding/rigidity, normoactive bowel sounds, no hepatosplenomegaly or masses, no costovertebral angle tenderness Musculoskeletal: general: grossly intact; gait: unable to assess Integumental: normal appearance and texture of exposed skin Psychiatric orientation: somnolent, unable to assess orientation affect: somnolent mood: acquiescent eye contact: poor content: absent responses: withdraws from stimuli insight: poor to absent Testing: Lab Results 10/12/17 10/12/17 10/12/17 Range/Units 22:45 22:45 22:45 WBC 12.7 H (3.5-10.8) 10^3/ul RBC 4.80 (4.0-5.4) 10^6/ul Hgb 14.4 (14.0-18.0) g/dl Hct 40 L (42-52) % MCV 83 (80-94) fL MCH 30 (27-31) pg MCHC 36 (31-36) g/dl RDW 13 (10.5-15) % Plt Count 202 (150-450) 10^3/ul MPV 8 (7.4-10.4) um3 Neut % (Auto) 80.6 (38-83) % Lymph % (Auto) 10.9 L (25-47) % [place] % (Auto) 7.4 (1-9) % Eos % (Auto) 0.8 (0-6) % Baso % (Auto) 0.3 (0-2) % Absolute Neuts (auto) 10.2 H (1.5-7.7) 10^3/ul Absolute Lymphs (auto) 1.4 (1.0-4.8) 10^3/ul Absolute Monos (auto) 0.9 H (0-0.8) 10^3/ul Absolute Eos (auto) 0.1 (0-0.6) 10^3/ul Absolute Basos (auto) 0 (0-0.2) 10^3/ul Absolute Nucleated RBC 0 10^3/ul Nucleated RBC % 0 INR (Anticoag Therapy) 1.09 (0.89-1.11) APTT 35.7 (26.0-36.3) seconds Sodium 120 L (133-145) mmol/L Potassium 3.6 (3.5-5.0) mmol/L Chloride 86 L (101-111) mmol/L Carbon Dioxide 25 (22-32) mmol/L Anion Gap 9 (2-11) mmol/L BUN 4 L (6-24) mg/dL Creatinine 0.59 L (0.67-1.17) mg/dL Est GFR ( Amer) 217.0 (>60) Est GFR (Non-Af Amer) 168.8 (>60) BUN/Creatinine Ratio 6.8 L (8-20) Glucose 100 (70-100) mg/dL Calcium 10.1 (8.6-10.3) mg/dL Magnesium 1.7 L (1.9-2.7) mg/dL Total Bilirubin 0.90 (0.2-1.0) mg/dL AST 60 H (13-39) U/L ALT 26 (7-52) U/L Alkaline Phosphatase 61 (34-104) U/L Troponin I 0.01 (<0.04) ng/mL Total Protein 7.5 (6.4-8.9) g/dL Albumin 4.8 (3.2-5.2) g/dL Globulin 2.7 (2-4) g/dL Albumin/Globulin Ratio 1.8 (1-3) Prolactin 7.2 (1.0-20.0) ng/mL Urine Color Urine Appearance Urine pH (5-9) Ur Specific [place] (1.010-1.030) Urine Protein (Negative) Urine Ketones (Negative) Urine Blood (Negative) Urine Nitrate (Negative) Urine Bilirubin (Negative) Urine Urobilinogen (Negative) Ur Leukocyte Esterase (Negative) Urine WBC (Auto) (Absent) Urine RBC (Auto) (Absent) Urine Bacteria (Absent) Urine Glucose (Negative) Valproic Acid 68.0 (50-100) mcg/mL 10/13/17 10/13/17 10/13/17 Range/Units 01:15 06:32 06:32 WBC 8.1 (3.5-10.8) 10^3/ul RBC 4.28 (4.0-5.4) 10^6/ul Hgb 13.0 L (14.0-18.0) g/dl Hct 36 L (42-52) % MCV 84 (80-94) fL MCH 31 (27-31) pg MCHC 37 H (31-36) g/dl RDW 13 (10.5-15) % Plt Count 164 (150-450) 10^3/ul MPV 8 (7.4-10.4) um3 Neut % (Auto) 68.4 (38-83) % Lymph % (Auto) 13.4 L (25-47) % [place] % (Auto) 17.2 H (1-9) % Eos % (Auto) 0.5 (0-6) % Baso % (Auto) 0.5 (0-2) % Absolute Neuts (auto) 5.5 (1.5-7.7) 10^3/ul Absolute Lymphs (auto) 1.1 (1.0-4.8) 10^3/ul Absolute Monos (auto) 1.4 H (0-0.8) 10^3/ul Absolute Eos (auto) 0 (0-0.6) 10^3/ul Absolute Basos (auto) 0 (0-0.2) 10^3/ul Absolute Nucleated RBC 0.01 10^3/ul Nucleated RBC % 0.2 INR (Anticoag Therapy) (0.89-1.11) APTT (26.0-36.3) seconds Sodium 131 L D (133-145) mmol/L Potassium 3.9 (3.5-5.0) mmol/L Chloride 101 (101-111) mmol/L Carbon Dioxide 24 (22-32) mmol/L Anion Gap 6 (2-11) mmol/L BUN 5 L (6-24) mg/dL Creatinine 0.64 L (0.67-1.17) mg/dL Est GFR ( Amer) 197.6 (>60) Est GFR (Non-Af Amer) 153.6 (>60) BUN/Creatinine Ratio 7.8 L (8-20) Glucose 101 H (70-100) mg/dL Calcium 8.9 (8.6-10.3) mg/dL Magnesium (1.9-2.7) mg/dL Total Bilirubin (0.2-1.0) mg/dL AST (13-39) U/L ALT (7-52) U/L Alkaline Phosphatase (34-104) U/L Troponin I (<0.04) ng/mL Total Protein (6.4-8.9) g/dL Albumin (3.2-5.2) g/dL Globulin (2-4) g/dL Albumin/Globulin Ratio (1-3) Prolactin (1.0-20.0) ng/mL Urine Color Straw Urine Appearance Clear Urine pH 7.0 (5-9) Ur Specific [place] 1.002 L (1.010-1.030) Urine Protein Negative (Negative) Urine Ketones Negative (Negative) Urine Blood 3+ H (Negative) Urine Nitrate Negative (Negative) Urine Bilirubin Negative (Negative) Urine Urobilinogen Negative (Negative) Ur Leukocyte Esterase Negative (Negative) Urine WBC (Auto) Absent (Absent) Urine RBC (Auto) Trace(0-2/hpf) (Absent) Urine Bacteria Absent (Absent) Urine Glucose Negative (Negative) Valproic Acid (50-100) mcg/mL ECG, personally reviewed: NSR, no ischemia CXR, personally reviewed: no acute process CT brain WO, personally reviewed: FINDINGS: No acute intracranial abnormality. No hemorrhage. No visible infarct or mass. Osseous structures are intact. Impression: 22M HX non-verbal autism presenting with seizure associated with fever and no source; r/o meningitis DIAGNOSIS & PLAN Primary seizure associated with fever and no source; r/o meningitis : seizure precautions : IV ceftriaxone, vancomycin, & acyclovir : blood CX : IV fluids : MRI brain in AM : EEG in AM : consider anesthesiology consult for LP in AM : consider neurology consult in AM (Mother does not wish to involve Mariza Escamilla MD) : consider infectious disease consult in AM : supportive care unexplained weight loss : continue outpatient surveillance via PCP Secondary non-verbal autism : no acute issues HX HTN : monitor Admission Rational: inpatient for potential meningitis not anticipated to be adequately evaluated w/i 48h to allow for discharge DVTp: SCDs Code Status: full HCP: mother
--- NOTE | 2017-10-13 07:48 | RAD ---
INDICATION: Seizure COMPARISON: Most recent comparison brain CT August 31, 2017 TECHNIQUE: Contiguous axial sections of the brain were obtained from the skull base to the vertex without contrast. Evaluation is slightly limited by patient motion artifact. FINDINGS: The ventricles, cisterns and sulci are within normal limits. The fraire-white matter differentiation is adequately maintained and there is no sulcal effacement. No significant focal abnormality or mass effect is present. There is no evidence for intracranial hemorrhage. No significant focal osseous abnormality is present. The visualized portion of the paranasal sinuses and mastoid air cells appear clear. IMPRESSION: Normal CT of the brain.
--- NOTE | 2017-10-13 07:58 | RAD ---
Indication: Fever. Seizure activity. History of seizure disorder. Comparison: September 01, 2017 CT. Technique: Upright AP 0015 hours Report: Unchanged mild to moderate elevation of the RIGHT hemidiaphragm. No alveolar consolidation, focal pulmonary lesion, pleural effusion, or pneumothorax evident. The heart, pulmonary vasculature, and mediastinal contours are unremarkable. IMPRESSION: No evidence for pneumonia. No evidence for acute intrathoracic disease.
[2017-10-13] MEDS ORDERED: Vancomycin per Pharmacy* NOTE FOLLOW UP SCH (08:00)
[2017-10-13] MEDS: levETIRAcetam TAB* 500 MG PO SCH ×2 (08:22→20:31)
[2017-10-13] MEDS: clonazePAM TAB(*) 0.5 MG PO SCH ×2 (08:22→20:32)
[2017-10-13] MEDS: cloNIDine TAB* 0.1 MG PO SCH ×2 (08:22→20:32)
[2017-10-13] MEDS: Divalproex Sprinkle CAP* 125 MG PO SCH ×2 (08:23→20:32)
[2017-10-13] MEDS: busPIRone TAB* 10 MG PO SCH ×3 (08:23→20:32)
[2017-10-13] MEDS ORDERED: Lisinopril TAB* 10 MG PO SCH (09:00)
[2017-10-13] MEDS ORDERED: cefTRIAXone(*) 2 GM in NS 0.9% 100 ML* 100 ML IVPB SCH (12:00)
[2017-10-13] MEDS ORDERED: Vancomycin(*) 1,000 MG in NS 0.9% 250 ML* 250 ML IVPB SCH (12:00)
--- NOTE | 2017-10-13 12:52 | RAD ---
INDICATION: Fever and hematuria. COMPARISON: Comparison is made with a prior renal ultrasound from February 18, [address] of the abdomen and pelvis from September 01, 2017. TECHNIQUE: Multiple real-time images of the kidneys were obtained. FINDINGS: The kidneys are normal in size shape and echogenicity. The right kidney measured 13.6 x 5.7 x 5.2 cm and the left kidney measured 13.4 x 6.0 x 5.0 cm. No significant focal abnormality is seen. There is mild left caliectasis which appears unchanged from the prior ultrasound study. IMPRESSION: MILD LEFT CALIECTASIS, UNCHANGED.
--- NOTE | 2017-10-13 16:46 | PN ---
Subjective Date of Service: 10/13/17 Interval History: Patient seen and examined at bedside. Patient non-verbal and cannot participate in examination. No further seizures since admission. Tmax 103 and trending down. Family History: Unchanged from Admission Social History: Unchanged from Admission Past Medical History: Unchanged from Admission Objective Active Medications: Acetaminophen (Tylenol Tab*) 650 mg PO Q6H PRN Buspirone HCl (Buspar Tab*) 10 mg PO TID ESAU Clonazepam (Klonopin Tab(*)) 0.25 mg PO BID ESAU Clonidine HCl (Catapres Tab*) 0.2 mg PO BID ESAU Divalproex Sodium (Depakote Sprinkle Cap*) 500 mg PO BID ESAU Levetiracetam (Keppra Tab*) 1,000 mg PO BID ESAU Lisinopril (Prinivil Tab*) 10 mg PO DAILY ESAU Lorazepam (Ativan Inj*) 2 mg IV Q5M PRN Ondansetron HCl (Zofran Inj*) 4 mg IV Q6H PRN Polyethylene Glycol/Electrolytes (Miralax*) 17 gm PO DAILY PRN Risperidone (Risperdal*) 3 mg PO QPM ESAU Vital Signs Temp Pulse Resp BP Pulse Ox 99.7 F 83 16 140/69 98 10/13/17 16:34 10/13/17 16:34 10/13/17 16:34 10/13/17 16:34 10/13/17 16:34 Oxygen Devices in Use Now: None Appearance: sitting up in bed, NAD Eyes: No Scleral Icterus, PERRLA Ears/Nose/Mouth/Throat: NL Teeth, Lips, Gums Neck: NL Appearance and Movements; NL JVP Respiratory: Symmetrical Chest Expansion and Respiratory Effort, Clear to Auscultation Cardiovascular: NL Sounds; No Murmurs; No JVD, RRR Abdominal: NL Sounds; No Tenderness; No Distention Extremities: No Edema Skin: No Rash or Ulcers Neurological: NL Muscle Strength and Tone, - - Non-verbal; follows commands. Lines/Tubes/Other Access: Clean, Dry and Intact Peripheral IV Nutrition: Taking PO's Result Diagrams: 10/13/17 06:32 10/13/17 06:32 Additional Lab and Data: . Microbiology and Other Data: . Assess/Plan/Problems-Billing Patient is a 22 y/o M w/ hx of non-verbal autism and seizure disorder who was brought to the ER for an evaluation of leg weakness and incidentall yhad a seizure upon presentation to the ED followed by a fever of 103 admitted for recurrent seizure and r/o infection for fever. - Patient Problems (1) Fever Current Visit: No Comment: Fever trending down. Likely viral and possible secondary to seizure as this has happened in the past. Patient was started on empiric tx for bacterial meningitis. Abx stopped as this is unlikely given lack of photophobia. Will await blood cx for now. If spikes temp again will consider ID consult. (2) Seizure Comment: Case discussed with Dr. Lamar from neurology. Plan for MRI brain b/c of recurrent seizures. This is scheduled for tomorrow as patient will need anesthesia for exam. Continue Depakote at 500mg BID and Keppra at 1g BID ( recently increased). Seizure precautions in place. (3) Hyponatremia Comment: Sodium improved this AM. [facility] who thinks patient may have DI vs psychogenic polydipsea. Will send Urine osm and Na as well as serum osm. Serum osm was normal during 08/2017 admission. Recheck NA in AM. (4) Hypertension Comment: Controlled with clonidine, lisinopril (5) Autism Comment: Non-verbal. (6) DVT prophylaxis Priority: High Comment: SCDs only. (7) Full code status Status and Disposition: Inpatient for recurrent seizures and fever of unknown origin. Discharge to [facility] when stable.
[2017-10-13] MEDS: risperiDONE TAB* 1 MG PO SCH (17:46)
[2017-10-14] MEDS ORDERED: Vancomycin Trough Check NOTE FOLLOW UP ONE (05:30)
[2017-10-14 06:25] LABS: Hematocrit 37 % (42-52); Hemoglobin 12.6 g/dl (14.0-18.0); Mean Corpuscular HGB Conc 34 g/dl (31-36); Mean Corpuscular Hemoglobin 30 pg (27-31); Mean Corpuscular Volume 88 fL (80-94); Mean Platelet Volume 8 um3 (7.4-10.4); Red Blood Count 4.18 10^6/ul (4.0-5.4); Red Cell Distribution Width 13 % (10.5-15); White Blood Count 6.6 10^3/ul (3.5-10.8)
[2017-10-14 06:47] LABS: BUN/Creatinine Ratio 11.9 (8-20); Calcium 9.1 mg/dL (8.6-10.3); EGFR Non-African American 168.8 (>60); Potassium 3.9 mmol/L (3.5-5.0)
[2017-10-14] MEDS: cloNIDine TAB* 0.1 MG PO SCH ×2 (08:31→21:32)
[2017-10-14] MEDS: levETIRAcetam TAB* 500 MG PO SCH ×2 (08:31→21:32)
[2017-10-14] MEDS: busPIRone TAB* 10 MG PO SCH ×3 (08:31→21:33)
[2017-10-14] MEDS: Divalproex Sprinkle CAP* 125 MG PO SCH ×2 (08:31→21:32)
[2017-10-14] MEDS: clonazePAM TAB(*) 0.5 MG PO SCH ×2 (08:31→21:33)
--- NOTE | 2017-10-14 10:19 | EEG ---
ELECTROENCEPHALOGRAPHY: DATE OF PROCEDURE/DICTATION: 10/13/17 - ROOM #437 PATIENT OF: Dr. Jett. HISTORY: This is a 22-year-old with known history of seizures, anxiety, psychiatric disorder, and severe autism. He has had seizures since age 2 and had a seizure yesterday while with family. MEDICATIONS: Include: 1. Keppra. 2. Acyclovir. 3. Prinivil. 4. Risperdal. 5. Ativan. 6. Zofran. 7. MiraLAX. 8. Catapres. 9. Depakote. 10. BuSpar. 11. Klonopin. INTERPRETATION: With the patient awake, background cerebral activity consists of admixed beta, alpha and theta range frequencies. At times, the patient becomes drowsy with further slowing in the theta and delta range. The patient never falls fully asleep. No focal abnormalities or epileptiform potentials are noted. IMPRESSION: This awake and drowsy EEG is abnormal because of the presence of some diffuse slowing suggestive of mild chronic encephalopathy. Medications the patient is consuming may contribute to the slowing and the prominent theta activity noted also is probably secondary to the benzodiazepines this patient is on. No seizures potentials were noted. [id number]/[facility] #: [id number] [facility]
[2017-10-14] MEDS ORDERED: Famotidine IV* 10 MG/ML 2 ML (20 mg) IV ONE (12:56)
[2017-10-14] MEDS ORDERED: Buffered Lidocaine 0.9% SYRIN* 5 ML/SYR SYRINGE INTRADERM ONE (12:56)
[2017-10-14] MEDS ORDERED: Dexamethasone IV* 4 MG/ML 1 ML (4 MG) IV SLOW PU ONE (12:56)
[2017-10-14] MEDS ORDERED: NS 0.9% 1000 ML* 1,000 ML IV SCH (13:15)
[2017-10-14] MEDS ORDERED: Atracurium* 10 MG/ML 10 ML VIAL ONE ×2 (13:28→14:06)
[2017-10-14] MEDS ORDERED: Midazolam* 1 MG/ML 10 ML VIAL (10 MG) ONE (13:28)
[2017-10-14] MEDS ORDERED: fentaNYL* 50 MCG/ML 5 ML VIAL (250 MCG VIAL) ONE (13:28)
[2017-10-14] MEDS ORDERED: EPHEDrine (Pressors)* 50 MG/ML VIAL ONE (13:30)
[2017-10-14] MEDS ORDERED: Dexamethasone IV* 4 MG/ML 1 ML (4 MG) ONE (13:53)
[2017-10-14] MEDS ORDERED: Famotidine IV* 10 MG/ML 2 ML (20 mg) ONE (13:53)
[2017-10-14] MEDS ORDERED: Succinylcholine* 20 MG/ML 10 ML VIAL ONE ×2 (14:06→14:14)
[2017-10-14] MEDS ORDERED: Lidocaine 2% PF * 5 ML VIAL ONE (14:13)
[2017-10-14] MEDS ORDERED: Ondansetron INJ* 2 MG/ML VIAL ONE (14:13)
[2017-10-14] MEDS ORDERED: Propofol* 10 MG/ML 20 ML BTL IV PUSH ONE (14:13)
[2017-10-14] MEDS ORDERED: Glycopyrrolate IV* 0.2 MG/ML 1 ML VIAL ONE (14:14)
[2017-10-14] MEDS ORDERED: Atropine 1MG/ML INJ* 1 ML VIAL ONE (14:14)
--- NOTE | 2017-10-14 15:09 | PN ---
Subjective Date of Service: 10/14/17 Interval History: Patient seen and examined at bedside. Patient is non-verbal and unable to participate in exam. Patient has not had any further episodes of seizures. Last temp yesterday at 1900. Family History: Unchanged from Admission Social History: Unchanged from Admission Past Medical History: Unchanged from Admission Objective Active Medications: Acetaminophen (Tylenol Tab*) 650 mg PO Q6H PRN Buspirone HCl (Buspar Tab*) 10 mg PO TID ESAU Clonazepam (Klonopin Tab(*)) 0.25 mg PO BID ESAU Clonidine HCl (Catapres Tab*) 0.2 mg PO BID ESAU Divalproex Sodium (Depakote Sprinkle Cap*) 500 mg PO BID ESAU Sodium Chloride (Ns 0.9% 1000 Ml*) 1,000 mls @ 75 mls/hr IV PER RATE ESAU Levetiracetam (Keppra Tab*) 1,000 mg PO BID ESAU Lorazepam (Ativan Inj*) 2 mg IV Q5M PRN Ondansetron HCl (Zofran Inj*) 4 mg IV Q6H PRN Polyethylene Glycol/Electrolytes (Miralax*) 17 gm PO DAILY PRN Risperidone (Risperdal*) 3 mg PO QPM ESAU Vital Signs Temp Pulse Resp BP Pulse Ox 97.5 F 50 18 101/54 98 10/14/17 11:19 10/14/17 11:19 10/14/17 11:19 10/14/17 11:19 10/14/17 11:19 Oxygen Devices in Use Now: None Appearance: laying in bed, NAD Eyes: No Scleral Icterus, PERRLA Ears/Nose/Mouth/Throat: NL Teeth, Lips, Gums Neck: NL Appearance and Movements; NL JVP Respiratory: Symmetrical Chest Expansion and Respiratory Effort, Clear to Auscultation Cardiovascular: NL Sounds; No Murmurs; No JVD Abdominal: NL Sounds; No Tenderness; No Distention Extremities: No Edema Skin: No Rash or Ulcers Neurological: NL Muscle Strength and Tone, - - alert follows commands Lines/Tubes/Other Access: Clean, Dry and Intact Peripheral IV Result Diagrams: 10/14/17 05:18 10/14/17 05:18 Additional Lab and Data: . Microbiology and Other Data: . Assess/Plan/Problems-Billing Patient is a 22 y/o M w/ hx of non-verbal autism and seizure disorder who was brought to the ER for an evaluation of leg weakness and incidentall yhad a seizure upon presentation to the ED followed by a fever of 103 admitted for recurrent seizure and r/o infection for fever. - Patient Problems (1) Fever Current Visit: No Comment: Suspect viral illness; fever has resolved. Blood cultures negative. No leukocytosis. (2) Seizure Comment: MRI of the brain today. Continue Depakote at 500mg BID and Keppra at 1g BID (recently increased). Seizure precautions in place. (3) Hyponatremia Comment: Sodium improved. Urine Na normal. Will send ADH as well. 1.8L urine output over 24 hours. 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 (4) Hypertension Comment: Controlled with clonidine, lisinopril (5) Autism Comment: Non-verbal. (6) DVT prophylaxis Comment: SCDs only. (7) Full code status Status and Disposition: Inpatient for recurrent seizures and fever of unknown origin. PT eval. D/c to long term in [place] likely tomorrow AM if no further fevers.
[2017-10-14] MEDS ORDERED: Gadoteridol* (CONTRAST) 279.3 MG/ML 10 ML IV ONE (15:39)
--- NOTE | 2017-10-14 16:25 | RAD ---
INDICATION: Back pain COMPARISON: CT lumbar spine September 01, 2017 TECHNIQUE: Coronal T2, sagittal T1, T2, inversion recovery, and axial T1 and T2-weighted images were acquired. FINDINGS: Conus medullaris: Normal in size and position . Lumbar alignment: Normal. Vertebrae: There are no focal marrow signal abnormalities. Disc spaces: T12-L1: Normal L1-L2: Normal L2-L3: Normal L3-L4: Normal L4-L5: There is mild desiccation with circumferential bulging the disc. There is a small central disc herniation leading to mild deformity of the anterior thecal sac. There is no significant canal compromise. There is no foraminal compromise. There is facet overgrowth. L5-S1: No significant MR abnormalities. Soft tissues:There is no paravertebral abnormality. Other:None IMPRESSION: Small central disc herniation L5-S1 without associated canal or foraminal compromise. No additional significant MR findings.
--- NOTE | 2017-10-14 16:28 | RAD ---
INDICATION: Seizures COMPARISON: CT brain October 12, 2017 TECHNIQUE: sagittal T1 FLAIR, axial diffusion, axial T1 FLAIR, axial T2, axial T2 FLAIR, coronal T2 FLAIR, coronal T1, coronal T2 and SWI images were acquired. Additional multiplanar contrast-enhanced images were obtained from the administration of 16 mL of ProHance FINDINGS: Craniocervical junction: The craniocervical junction appears normal. Ventricles/sulci: The ventricles and cisterns are normal in size and configuration for age. Brain parenchyma: There are no focal parenchymal abnormalities. There is no abnormal enhancement. There is no evidence of intracranial mass or mass effect. The diffusion weighted images show no evidence of acute ischemia. Intracranial hemorrhage: There is no intracranial hemorrhage. Extra-axial spaces: There are no extra-axial fluid collections or masses. Orbits: There are no MR abnormalities of the orbital structures. Paranasal sinuses/mastoid: The paranasal sinuses are clear. The mastoid air cells are well aerated.. Vascular: No abnormalities are seen. Other: None IMPRESSION: NORMAL EXAMINATION. NO MASS OR ABNORMAL ENHANCEMENT.
[2017-10-14] MEDS ORDERED: Acetaminophen TAB* 325 MG ONE (17:25)
[2017-10-14] MEDS: Acetaminophen TAB* 325 MG PO PRN (17:25)
[2017-10-14] MEDS: risperiDONE TAB* 1 MG PO SCH (18:04)
[2017-10-15 04:21] VITALS: BP 111/63
[2017-10-15 05:52] LABS: BUN/Creatinine Ratio 18.8 (8-20); Calcium 9.5 mg/dL (8.6-10.3); EGFR African American 275.4 (>60); EGFR Non-African American 214.1 (>60); Potassium 3.8 mmol/L (3.5-5.0)
[2017-10-15] MEDS: busPIRone TAB* 10 MG PO SCH ×2 (09:09→13:57)
[2017-10-15] MEDS: levETIRAcetam TAB* 500 MG PO SCH (09:09)
[2017-10-15] MEDS: cloNIDine TAB* 0.1 MG PO SCH (09:09)
[2017-10-15] MEDS: clonazePAM TAB(*) 0.5 MG PO SCH (09:10)
[2017-10-15] MEDS: Divalproex Sprinkle CAP* 125 MG PO SCH (09:10)
--- NOTE | 2017-10-15 13:24 | DCNOTE ---
Subjective Date of Service: 10/15/17 Interval History: Patient seen and examined at bedside. No further seizure activity seen. Afebrile since 7pm. Ambulated with PT yesterday and is stronger. Family History: Unchanged from Admission Social History: Unchanged from Admission Past Medical History: Unchanged from Admission Objective Active Medications: Acetaminophen (Tylenol Tab*) 650 mg PO Q6H PRN Buspirone HCl (Buspar Tab*) 10 mg PO TID ESUA Clonazepam (Klonopin Tab(*)) 0.25 mg PO BID ESAU Clonidine HCl (Catapres Tab*) 0.2 mg PO BID ESAU Divalproex Sodium (Depakote Sprinkle Cap*) 500 mg PO BID ESAU Levetiracetam (Keppra Tab*) 1,000 mg PO BID ESAU Lorazepam (Ativan Inj*) 2 mg IV Q5M PRN Ondansetron HCl (Zofran Inj*) 4 mg IV Q6H PRN Polyethylene Glycol/Electrolytes (Miralax*) 17 gm PO DAILY PRN Risperidone (Risperdal*) 3 mg PO QPM ESAU Vital Signs Temp Pulse Resp BP Pulse Ox 97.6 F 58 16 111/63 99 10/15/17 03:52 10/15/17 03:52 10/15/17 11:23 10/15/17 03:52 10/15/17 03:52 Oxygen Devices in Use Now: None Appearance: sitting up in bed, NAD Eyes: No Scleral Icterus, PERRLA Ears/Nose/Mouth/Throat: NL Teeth, Lips, Gums Neck: NL Appearance and Movements; NL JVP Respiratory: Symmetrical Chest Expansion and Respiratory Effort, Clear to Auscultation Cardiovascular: NL Sounds; No Murmurs; No JVD, RRR Abdominal: NL Sounds; No Tenderness; No Distention Extremities: No Edema Skin: No Rash or Ulcers Neurological: NL Muscle Strength and Tone, - - non-verbal; intermittently follow commands. Lines/Tubes/Other Access: Clean, Dry and Intact Peripheral IV Result Diagrams: 10/14/17 05:18 10/15/17 05:25 Additional Lab and Data: . Microbiology and Other Data: . Assess/Plan/Problems-Billing Patient is a 22 y/o M w/ hx of non-verbal autism and seizure disorder who was brought to the ER for an evaluation of leg weakness and incidentall yhad a seizure upon presentation to the ED followed by a fever of 103 admitted for recurrent seizure and r/o infection for fever. - Patient Problems (1) Fever Current Visit: No Comment: Suspect viral illness; fever has resolved. Blood cultures negative. No leukocytosis. (2) Seizure Comment: MRI brain normal. Continue Depakote at 500mg BID and Keppra at 1g BID ( recently increased). Seizure precautions in place. F/u with neurologist as an outpatient. (3) Hyponatremia Comment: Sodium improved. Urine Na normal. Urine Osm > Serum Osm. Will send ADH as well. 1.8L urine output over 24 hours. 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 Will d/c on 2L fluid restriction. (4) Hypertension Comment: Controlled with clonidine, lisinopril (5) Autism Comment: Non-verbal. (6) DVT prophylaxis Comment: SCDs only. (7) Full code status Status and Disposition: Inpatient for recurrent seizures and fever of unknown origin. PT eval. Patient stable to be discharged home.
--- NOTE | 2017-10-16 05:35 | DS ---
Cc: Dr. Pavon; Dr. Lamar * DISCHARGE SUMMARY: DATE OF ADMISSION: 10/13/17 DATE OF DISCHARGE: 10/15/17 ATTENDING PHYSICIAN: Richard Peres MD * (report dictated by Alba Ba NP) PRIMARY CARE PROVIDER: Dr. Pavon in [place]. NEUROLOGIST: Dr. Saad Lamar. PRIMARY DIAGNOSES: 1. Fever of unknown origin, suspected viral illness. 2. Intractable seizure disorder. 3. 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 SECONDARY DIAGNOSES: 1. Nonverbal autism. 2. Hypertension. 3. Weight loss. MEDICATIONS AT THE TIME OF DISCHARGE: 1. BuSpar 10 mg 3 times daily. 2. Risperdal 3 mg oral in the evening. 3. Depakote Sprinkles 500 mg oral twice daily. 4. Catapres 0.2 mg oral twice daily. 5. Zyrtec 10 mg oral at bedtime. 6. Tylenol 650 mg every 4 hours as needed. 7. MiraLAX 17 g oral daily. 8. Clotrimazole 1 application topical twice daily. 9. Klonopin 0.25 mg oral twice daily. 10. Keppra 500 mg oral twice daily. The patient has been instructed to discontinue lisinopril. STUDIES WHILE IN THE HOSPITAL: 1. CT of the brain without contrast, 10/12/17: Normal CT of the brain. 2. Chest x-ray portable, 10/12/17: No evidence for pneumonia. No evidence for acute intrathoracic disease. 3. MRI of the lumbar spine without contrast, 10/14/17: Small central disk herniation, L5-S1 without associated canal foraminal compromise, no additional significant MR findings. 4. MRI of the brain with and without contrast, 10/14/17: Normal examination, no mass or abnormal enhancement. 5. Renal ultrasound: Mild left caliectasis. HISTORY OF PRESENT ILLNESS AND HOSPITAL COURSE: Mr. Lepe is a 22-year-old male , resident of [facility], history of nonverbal autism, seizure disorder who was brought to the emergency room by his mother for leg weakness. In the emergency room, he had a witnessed 3-minute convulsive episode associated subsequently with a fever of 103.3. The patient was admitted to the medical floor for fever and seizure disorder. The patient was initially started for empiric treatment of meningitis, yet because the patient was exhibiting no overt signs of photophobia or discomfort with significant amount of light in his room, it was unlikely that this fever was related to meningitis. At that time, antibiotics were discontinued. Blood cultures were sent, which were negative. Urine culture was sent, which was negative. The patient's fever was self-limiting and last fever was at 7 p.m. on 10/13/2017. The patient had an EEG, which did not show any epileptiform discharges. I had a conversation with the patient's neurologist, Dr. Lamar, who recommended continuing Keppra and Depakote at the current dose. The patient had no further seizure episode while he was here. Additionally on admission, the patient was found to have a sodium of 120. Per the patient's mother, he has been drinking water obsessively for the past few months. A conversation with his facility's managing jeweler preempted a workup for diabetes insipidus. The patient was given close to 2 L of normal saline during his first 24 hours of admission and although he did have 2.6 L of oral intake, his sodium quickly began to normalize. Osmolality was measured at 277, urine osmolality at 317 and random sodium at 113. This does not seem to fit the picture of central diabetes insipidus and the patient had no abnormalities on MRI. Antidiuretic hormone is pending at this time. For the time being, the recommendation would be to institute a 2 L fluid restriction and check basic metabolic panel in a few days and weekly thereafter to ensure that the patient' s sodium level does not drop. It is likely that the low sodium level could be causing the seizures. The patient also had an MRI of the brain because of his intractable seizure disorder, this was normal. Because the patient had anesthesia before the MRI and his neurologist had also wanted to obtain an MRI of the lumbar spine due to his progressive leg weakness, this showed a bulging disk without any canal or foraminal compromise. The patient worked with PT and was able to ambulate with contact guard and gait belt, this can continue at his facility. For patient's blood pressure, clonidine was continued during his hospitalization but lisinopril was held. Blood pressure has been controlled with systolic 110 to 120, hence lisinopril can be discontinued on discharge. On 10/15/17, vitals were as follows: 97.6, heart rate 58, respiratory rate 16, blood pressure 111/63, oxygen saturation 99%. At this point, patient is stable for discharge. DISCHARGE PLAN: The patient was discharged on a regular diet. The patient will be seen by his primary care provider within 4 to 7 days and have a repeat metabolic panel performed on 10/21/17, with results called to Dr. Pavon. The patient should return to the hospital if he experiences any further seizure episodes. The patient should also be limited to a fluid restriction of 2 L. I have reviewed all the instructions with the patient's mother, she is agreeable with his discharge today. The patient should follow up with his neurologist Dr. Lamar within 2 to 4 weeks. This is a summarized report of a complex medical history and hospital stay. For more details, please see the entire medical record. CONDITION ON DISCHARGE: Stable. TIME SPENT: Time for this discharge was 60 minutes and 25 minutes was spent with the mother reviewing medications at discharge and followup instructions. ALBA BA NP [id number]/[facility] #: [id number] [place]
== END 2017-10-15 14:16 | disposition home or self-care (01) | DRG 723 ==
LOC: ED 21:48 → MEDTELE 10-13 04:00
PROVIDERS: ADMIT Hospitalist; ATTEND Internal Medicine
DX: B34.9 Viral infection, unspecified (principal); G40.919 Epilepsy, unspecified, intractable, without status epilepticus; E87.1 Hypo-osmolality and hyponatremia; F84.0 Autistic disorder; R50.9 Fever, unspecified; R63.1 Polydipsia; I10 Essential (primary) hypertension; R63.4 Abnormal weight loss; M51.27 Other intervertebral disc displacement, lumbosacral region; Z68.23 Body mass index [BMI] 23.0-23.9, adult; Z79.1 Long term (current) use of non-steroidal anti-inflammatories (NSAID); Z79.899 Other long term (current) drug therapy; Z88.1 Allergy status to other antibiotic agents
CPT/HCPCS: 36415; 70450; 70553; 71010; 72148; 76775; 80048; 80053; 80164; 81003; 81015; 83036; 83735; 83930; 83935; 84146; 84300; 84484; 84588; 85025; 85610; 85730; 87040; 87502; 93005; 95816; A9270-GY; A9579; J0133; J0330; J0461; J0696; J1100; J2060; J2250; J2405; J2704; J3010; J3370

== ENCOUNTER 2017-10-19 14:54 | Inpatient (IN) | payer BC, MEDICAID ==
[2017-10-19 16:23] LABS: Urine Appearance Clear; Urine Blood 3+ (Negative); Urine Color Straw; Urine Ketones Negative (Negative); Urine Protein Negative (Negative); Urine Specific Gravity 1.006 (1.010-1.030); Urine Urobilinogen Negative (Negative)
[2017-10-19 16:29] LABS: ABS Basophils 0 10^3/ul (0-0.2); ABS Eosinophils 0.2 10^3/ul (0-0.6); ABS Lymphocytes 2.2 10^3/ul (1.0-4.8); ABS Monocytes 0.7 10^3/ul (0-0.8); ABS Neutrophils 4.6 10^3/ul (1.5-7.7); ABS Nucleated RBC 0.01 10^3/ul; Eosinophil % 2.8 % (0-6); Hematocrit 38 % (42-52); Hemoglobin 13.5 g/dl (14.0-18.0); Lymphocyte % 28.7 % (25-47); Mean Corpuscular HGB Conc 35 g/dl (31-36); Mean Corpuscular Hemoglobin 30 pg (27-31); Mean Corpuscular Volume 86 fL (80-94); Mean Platelet Volume 8 um3 (7.4-10.4); Nucleated Red Blood Cells % 0.1; Platelet Count 189 10^3/ul (150-450); Red Blood Count 4.49 10^6/ul (4.0-5.4); Red Cell Distribution Width 13 % (10.5-15); White Blood Count 7.8 10^3/ul (3.5-10.8)
[2017-10-19 16:44] LABS: EGFR Non-African American 168.8 (>60)
--- NOTE | 2017-10-19 17:19 | RAD ---
INDICATION: Hematuria COMPARISON: Similar examination acquired October 13, 2017 TECHNIQUE: Real-time ultrasound examination of the bilateral kidneys and urinary bladder including grayscale and Doppler color flow analysis. FINDINGS: The right kidney measures 12.7 x 5.8 x 6.3 cm. The left kidney measures 12.5 x 5.2 x 5.6 cm. The right kidney exhibits a mild degree of pelvic caliectasis similar in appearance to the previous ultrasound. There is very mild left-sided hydronephrosis similar in appearance to the prior ultrasound. IMPRESSION: Right-sided pelvocaliectasis and very mild left-sided hydronephrosis, both similar to the previous ultrasound acquired October 13, 2017.
[2017-10-19] MEDS ORDERED: Acetaminophen TAB* 325 MG PO PRN (19:02)
[2017-10-19] MEDS ORDERED: Clotrimazole 1% CREAM* 45 GM TOPICAL PRN (19:02)
[2017-10-19] MEDS: NS 0.9% 1000 ML* 2,000 ML IV ONE ×2 (19:09→20:02)
[2017-10-19] MEDS: levETIRAcetam TAB* 500 MG PO SCH (19:58)
[2017-10-19] MEDS: busPIRone TAB* 10 MG PO SCH (19:58)
[2017-10-19] MEDS: clonazePAM TAB(*) 0.5 MG PO SCH (19:58)
[2017-10-19] MEDS: Divalproex Sprinkle CAP* 125 MG PO SCH (22:52)
[2017-10-19] MEDS: Cetirizine* 10 MG TAB PO SCH (22:52)
[2017-10-19] MEDS: cloNIDine TAB* 0.1 MG PO SCH (22:52)
--- NOTE | 2017-10-19 23:28 | HP ---
CC: Dr. Blayne Sheehan* HISTORY AND PHYSICAL: DATE OF ADMISSION: 10/19/17 PRIMARY CARE PROVIDER: Dr. Blayne Sheehan. ATTENDING PHYSICIAN: Dr. Yuko Gu * (dictated by Clare Kaplan NP). CHIEF COMPLAINT: Abdominal pain. HISTORY OF PRESENT ILLNESS: Mr. Lepe is a 22-year-old male with a past medical history significant for nonverbal autism, hypertension and a seizure disorder, who presents to the emergency room with complaints of abdominal pain. The patient also had reports of hematuria since approximately an hour prior to his arrival. The patient had had a urinary catheter during his hospitalization from October 12 to October 15 at which time he was hospitalized for seizures. At that time, it appears that the patient only had a catheter placed due to his condition and not due to any urinary problems. It is also to note, he was hospitalized from September 01 to September 02 with seizures. The [facility] has been [facility] his [facility] where [facility]. While in the emergency room, the patient was noted to not want people to touch his abdomen. He appeared to have abdominal pain. He had a Lyon catheter placed and was found to have a significant amount of retained urine. The patient also underwent a renal ultrasound showing a right-sided pelvocaliectasis and very mild left-sided hydronephrosis, both similar to previous ultrasounds. The patient had labs that were unremarkable, but due to the inability of the house staff to care for his Lyon catheter tonight, it was recommended that he stay the night. His pain has since resolved since the catheter was placed. The staff with him denies any history of complaints of fever, chills, chest pain, shortness of breath, nausea, vomiting, diarrhea. They did note some blood in his undergarments today. It has also been noted that he has lost some approximately 50 pounds recently since his seizure disorder was diagnosed. Hospitalists were asked to evaluate the patient for admission. PAST MEDICAL HISTORY: 1. Nonverbal autism. 2. Hypertension. 3. Seizure disorder. PAST SURGICAL HISTORY: 1. Status post bilateral inguinal hernia repairs as an infant. 2. Status post pilonidal cyst abscess excision. HOME MEDICATIONS: Include: 1. Lactulose 30 mL oral t.i.d. 2. Zyrtec 10 mg oral daily at bedtime. 3. Acetaminophen 650 mg oral every 4 hours as needed for fever or pain. 4. Clonazepam 0.25 mg oral twice daily. 5. Clotrimazole 1% apply topical twice daily as needed for reddened buttocks. 6. Risperidone 3 mg oral every evening. 7. Keppra 1000 mg oral twice daily. 8. Depakote 500 mg oral twice daily. 9. Clonidine 0.2 mg oral twice daily. 10. BuSpar 10 mg oral 3 times daily. ALLERGIES: CLARITHROMYCIN. FAMILY HISTORY: Unable to determine at this time as the patient is nonverbal and he only has house staff at his bedside. SOCIAL HISTORY: The patient has never smoked. Does not drink alcohol or use recreational drugs. He had lived with his mother until he was 19 and then he moved into a fci in [place]. His mother is Abdulaziz Martin and father Jac Lepe will be his surrogate decision makers for any medical cares he is unable to make his own medical decisions. REVIEW OF SYSTEMS: I performed a 14-point review of systems. All the pertinent positives and negatives are mentioned in the history of present illness. The remaining review of systems are negative. PHYSICAL EXAMINATION GENERAL APPEARANCE: The patient is alert, pleasant and appears to be in no acute distress. VITAL SIGNS: Temperature 98.6, heart rate 94, respiratory rate 17, O2 sat 96% on room air, blood pressure 135/93. HEENT: Normocephalic, atraumatic. Pupils are equal and reactive to light. Extraocular movements are intact. NECK: Supple. RESPIRATORY: There is no accessory muscle use. The lungs are clear to auscultation bilateral. CARDIOVASCULAR: Regular rate and rhythm. S1 and S2 present. ABDOMEN: Soft, nontender, nondistended. There are bowel sounds present x4. EXTREMITIES: There is no lower extremity edema. DP and PT pulses are 2+ and symmetric. MUSCULOSKELETAL: There is no clubbing or cyanosis noted. The patient exhibits good strength in all extremities. NEUROLOGICAL: The patient is alert, unable to determine orientation as he is nonverbal. PSYCHOLOGICAL: The patient is calm and cooperative. SKIN: There are no rashes or abnormalities seen. DIAGNOSTIC STUDIES/LABORATORY DATA: Sodium 135, potassium 3.8, chloride 101, CO2 26, BUN 11, creatinine 0.59, glucose 87. White blood cell count 7.8, hemoglobin 13.2, hematocrit 38, and platelet count 189. Urinalysis is significant for 3+ blood, rbc's 2+, and bacteria 1+. Renal ultrasound from today. Radiologist's impression: Right-sided pelvocaliectasis and very mild left-sided hydronephrosis, both similar to previous ultrasound acquired 10/13/17. IMPRESSION: Mr. Lepe is a 22-year-old male with past medical history significant for nonverbal autism, hypertension and seizure disorder, who presents to the emergency room with hematuria and abdominal pain. He will be admitted as an observation for urinary retention. ASSESSMENT/PLAN: 1. Urinary retention. Plan will be to place the urinary catheter and have the patient follow with Urology outpatient for further workup. The house staff at the fci will be trained on how to use the urinary catheter and he will need to be moved to a medical house. 2. Seizure disorder. The patient will be on seizure precautions. He will be continued on his home Keppra and Depakote. 3. Nonverbal autism. The patient will be provided with supportive care. We will continue the patient's home BuSpar and clonidine. 4. Fluids, electrolytes, and nutrition. The patient will be on a regular diet , but encouraged to take small bites of food. 5. Code status. Full code. 6. DVT prophylaxis. The patient is at the risk and will be encouraged to ambulate. If at any point he is unable to ambulate, we will place him on SCDs. 7. Disposition. Observation. TIME SPENT: Time for this admission was approximately 60 minutes, greater than half of that was spent [id number] with the patient and caregiver at bedside discussing medications, past medical history, the events leading up to his arrival today and performing physical examination. The case was reviewed with the attending, Dr. Gu, who agrees with the plan of care. Reviewed by MURPHY CARRERA 10/20/17 1345 [id number]/[facility] #: [id number] [place]
[2017-10-20] MEDS: busPIRone TAB* 10 MG PO SCH ×3 (08:33→21:31)
[2017-10-20] MEDS: cloNIDine TAB* 0.1 MG PO SCH ×2 (08:33→21:32)
[2017-10-20] MEDS: Divalproex Sprinkle CAP* 125 MG PO SCH ×2 (08:33→21:30)
[2017-10-20] MEDS: clonazePAM TAB(*) 0.5 MG PO SCH ×2 (08:34→21:30)
[2017-10-20] MEDS: levETIRAcetam TAB* 500 MG PO SCH ×2 (08:34→21:31)
--- NOTE | 2017-10-20 14:17 | PN ---
Subjective Date of Service: 10/20/17 Objective Active Medications: Acetaminophen (Tylenol Tab*) 650 mg PO Q4HR PRN PRN Reason: PAIN Buspirone HCl (Buspar Tab*) 10 mg PO TID [facility] Last Admin: 10/20/17 08:33 Dose: 10 mg Cetirizine HCl (Zyrtec*) 10 mg PO BEDTIME [facility] Last Admin: 10/19/17 22:52 Dose: 10 mg Clonazepam (Klonopin Tab(*)) 0.25 mg PO BID [facility] Last Admin: 10/20/17 08:34 Dose: 0.25 mg Clonidine HCl (Catapres Tab*) 0.2 mg PO BID [facility] Last Admin: 10/20/17 08:33 Dose: 0.2 mg Clotrimazole (Clotrimazole 1%*) 1 applic TOPICAL BID PRN PRN Reason: reddened buttox Divalproex Sodium (Depakote Sprinkle Cap*) 500 mg PO BID [facility] Last Admin: 10/20/17 08:33 Dose: 500 mg Lactulose (Lactulose*) 30 ml PO TID [facility] Last Admin: 10/20/17 08:41 Dose: 30 ml Levetiracetam (Keppra Tab*) 1,000 mg PO BID [facility] Last Admin: 10/20/17 08:34 Dose: 1,000 mg Risperidone (Risperdal*) 3 mg PO QPM [facility] Tamsulosin HCl (Flomax Cap*) 0.4 mg PO DAILY [facility] Vital Signs 10/19/17 10/19/17 10/19/17 18:00 18:30 19:00 Temperature Pulse Rate 93 95 108 Respiratory 17 13 Rate Blood Pressure 135/93 132/77 166/87 (mmHg) O2 Sat by Pulse 96 97 100 Oximetry 10/19/17 10/19/17 10/19/17 19:25 19:58 22:53 Temperature 97.8 F Pulse Rate 93 Respiratory 20 20 20 Rate Blood Pressure 143/83 (mmHg) O2 Sat by Pulse 97 Oximetry 10/19/17 10/20/17 10/20/17 23:00 03:39 07:58 Temperature 97.6 F 98.1 F 98.3 F Pulse Rate 64 63 82 Respiratory 18 18 Rate Blood Pressure 136/85 123/77 126/73 (mmHg) O2 Sat by Pulse 98 98 Oximetry 10/20/17 10/20/17 08:34 11:45 Temperature Pulse Rate Respiratory 20 18 Rate Blood Pressure (mmHg) O2 Sat by Pulse Oximetry Oxygen Devices in Use Now: None Appearance: Alert, NAD, non-verbal, mother at bedside Eyes: PERRLA Ears/Nose/Mouth/Throat: NL Teeth, Lips, Gums Neck: NL Appearance and Movements; NL JVP, Trachea Midline Respiratory: Symmetrical Chest Expansion and Respiratory Effort, Clear to Auscultation Cardiovascular: NL Sounds; No Murmurs; No JVD Extremities: No Edema, No Clubbing, Cyanosis Skin: - - inguinal rash Neurological: NL Sensation, NL Gait, - - alert, no seizure activity noted Lines/Tubes/Other Access: Clean, Dry and Intact Taylor - some streaks of blood, no clots, tea colored in bag Nutrition: Taking PO's Result Diagrams: 10/19/17 16:05 10/19/17 16:05 Assess/Plan/Problems-Billing Assessment: This is a 22 year old autistic man, non-verbal with acute obstructive uropathy, may be secondary to trauma. Extensive discussion with senior livinghome sales service professional Anthony Denton that they cannot take this patient back in senior living with a taylor, as they do not have the training or nursing staff to manage. Discussed with case mgmt to determine if alternate placement is available. Patient is otherwise stable for DC with outpatient urology F/U. Will need trial to void. - Patient Problems (1) Acute urinary retention Code(s): R33.8 - OTHER RETENTION OF URINE SNOMED Code(s): 212593358 Comment: - Continue indwelling taylor to decompress bladder - Start flomax 0.4mg daily today - Will need trial to void and outpatient urology f/w - US shows left hydronephrosis and right pelvocaliectasis (2) Hydronephrosis Code(s): N13.30 - UNSPECIFIED HYDRONEPHROSIS SNOMED Code(s): 12890977 Comment: - Continue taylor and flomax as above - Outpatient f/u with urology (3) Full code status Current Visit: No Status: Acute Code(s): Z78.9 - OTHER SPECIFIED HEALTH STATUS SNOMED Code(s): 948389545 (4) Hypertension Code(s): I10 - ESSENTIAL (PRIMARY) HYPERTENSION SNOMED Code(s): 16639846 Comment: - Stable on clonidine, lisinopril (5) Seizure Code(s): R56.9 - UNSPECIFIED CONVULSIONS SNOMED Code(s): 85719012 Comment: - continue depakote sprinkles, keppra, currently stable (6) Autism Code(s): F84.0 - AUTISTIC DISORDER SNOMED Code(s): 922047927 Comment: - Stable, remains non-verbal, continue supportive care - continue risperidone (7) Polydipsia Code(s): R63.1 - POLYDIPSIA SNOMED Code(s): 85715765 Comment: - Monitor fluid intake and lytes, currently stable (8) Rash and nonspecific skin eruption Code(s): R21 - RASH AND OTHER NONSPECIFIC SKIN ERUPTION SNOMED Code(s): 545561902 Comment: - Encourage gely care - barrier cream ordered with nystatin Status and Disposition: - Cannot DC to senior living with claudia, they cannot manage - Will stay in obs another day vs swing bed and reassess in AM - extensive conversation with patient's mother regarding status - time spent >60mins Counseling and/or Coordination of Care Minutes: Coordinated with case mgmt, senior living and patient's mother/guardian Points of Discussion: time spent >60mins Attending: Dennis Salcido
[2017-10-20] MEDS: Tamsulosin CAP* 0.4 MG PO SCH (15:00)
[2017-10-20] MEDS: risperiDONE TAB* 1 MG PO SCH (17:28)
[2017-10-20] MEDS ORDERED: CMCS Melatonin (NF) 3 MG TAB PO PRN (20:23)
[2017-10-20] MEDS: Cetirizine* 10 MG TAB PO SCH (21:32)
[2017-10-20] MEDS: Clotrimazole 1% CREAM* 45 GM TOPICAL SCH (21:32)
--- NOTE | 2017-10-21 09:08 | PN ---
Subjective Date of Service: 10/21/17 Interval History: Patient seen and examined. Per aid from prison at bedside, patient not willing to eat, does not seem himself. Will take PO if fed which is not his baseline. Does not appear to be in overt distress, however being non-verbal, it is difficult to assess. No acute overnight events. Did receive melatonin for sleep/agitation with good effect per nursing notes. Objective Active Medications: Acetaminophen (Tylenol Tab*) 650 mg PO Q4HR PRN PRN Reason: PAIN Last Admin: 10/20/17 17:28 Dose: 650 mg Buspirone HCl (Buspar Tab*) 10 mg PO TID [facility] Last Admin: 10/20/17 21:31 Dose: 10 mg Cetirizine HCl (Zyrtec*) 10 mg PO BEDTIME [facility] Last Admin: 10/20/17 21:32 Dose: 10 mg Clonazepam (Klonopin Tab(*)) 0.25 mg PO BID [facility] Last Admin: 10/20/17 21:30 Dose: 0.25 mg Clonidine HCl (Catapres Tab*) 0.2 mg PO BID [facility] Last Admin: 10/20/17 21:32 Dose: 0.2 mg Clotrimazole (Clotrimazole 1%*) 1 applic TOPICAL BID [facility] Stop: 10/23/17 20:59 Last Admin: 10/20/17 21:32 Dose: 1 applic Divalproex Sodium (Depakote Sprinkle Cap*) 500 mg PO BID [facility] Last Admin: 10/20/17 21:30 Dose: 500 mg Lactulose (Lactulose*) 30 ml PO TID [facility] Last Admin: 10/20/17 21:35 Dose: Not Given Levetiracetam (Keppra Tab*) 1,000 mg PO BID [facility] Last Admin: 10/20/17 21:31 Dose: 1,000 mg Melatonin (Melatonin (Nf)) 3 mg PO BEDTIME PRN PRN Reason: INSOMNIA Last Admin: 10/20/17 21:32 Dose: 3 mg Risperidone (Risperdal*) 3 mg PO QPM [facility] Last Admin: 10/20/17 17:28 Dose: 3 mg Tamsulosin HCl (Flomax Cap*) 0.4 mg PO DAILY [facility] Last Admin: 10/20/17 15:00 Dose: 0.4 mg Vital Signs - 8 hr 10/21/17 10/21/17 01:09 03:36 Temperature 97.1 F Pulse Rate 60 Respiratory 16 16 Rate Blood Pressure 110/65 (mmHg) O2 Sat by Pulse 99 Oximetry Oxygen Devices in Use Now: None Appearance: Well nourished, NAD Eyes: No Scleral Icterus Ears/Nose/Mouth/Throat: NL Teeth, Lips, Gums Neck: Trachea Midline Respiratory: Symmetrical Chest Expansion and Respiratory Effort, Clear to Auscultation Cardiovascular: NL Sounds; No Murmurs; No JVD Abdominal: NL Sounds; No Tenderness; No Distention Extremities: No Edema, No Clubbing, Cyanosis - left hand with slight conctracture, at baseline Skin: - - inguinal rash, improving Neurological: NL Gait, - - alert Nutrition: Taking PO's Result Diagrams: 10/19/17 16:05 10/19/17 16:05 Assess/Plan/Problems-Billing Assessment: This is a 22 year old autistic man, non-verbal with acute obstructive uropathy, may be secondary to trauma. Extensive discussion with prison[facility] health billing specialist Anthony Denton that they cannot take this patient back in prison with a taylor, as they do not have the training or nursing staff to manage. Discussed with case mgmt to determine if alternate placement is available. Patient is otherwise stable for DC with outpatient urology F/U. Will need trial to void. - Patient Problems (1) Acute urinary retention Code(s): R33.8 - OTHER RETENTION OF URINE SNOMED Code(s): 280471345 Comment: - Continue indwelling taylor to decompress bladder - Flomax 0.4mg daily started yesterday - Will hold off on voiding trial given persistent hematuria this AM - US shows left hydronephrosis and right pelvocaliectasis - Pending urology consult (2) Hydronephrosis Code(s): N13.30 - UNSPECIFIED HYDRONEPHROSIS SNOMED Code(s): 41097678 Comment: - Continue taylor and flomax as above - Pending urology consult (3) Full code status Code(s): Z78.9 - OTHER SPECIFIED HEALTH STATUS SNOMED Code(s): 278519583 (4) Hypertension Code(s): I10 - ESSENTIAL (PRIMARY) HYPERTENSION SNOMED Code(s): 29104526 Comment: - Stable on clonidine, lisinopril (5) Seizure Code(s): R56.9 - UNSPECIFIED CONVULSIONS SNOMED Code(s): 69262503 Comment: - Continue depakote sprinkles, keppra, remains stable (6) Autism Code(s): F84.0 - AUTISTIC DISORDER SNOMED Code(s): 078777596 Comment: - Stable, remains non-verbal, continue supportive care - continue risperidone - melatonin PRN (7) Polydipsia Code(s): R63.1 - POLYDIPSIA SNOMED Code(s): 34256885 Comment: - Monitor fluid intake and lytes, currently stable (8) Rash and nonspecific skin eruption Code(s): R21 - RASH AND OTHER NONSPECIFIC SKIN ERUPTION SNOMED Code(s): 220920087 Comment: - Encourage gely care - barrier cream ordered with nystatin - monitor skin (9) Hematuria Code(s): R31.9 - HEMATURIA, UNSPECIFIED SNOMED Code(s): 11999386 Comment: - Etiology unclear, likely traumatic from initial taylor insertion and subsequent retention vs other etiology, however, urine remains darker today than yesterday, concern that bleeding is continuing as opposed to resolving - Urology consulted Status and Disposition: - Cannot DC to prison with taylor, they cannot manage - Will stay in obs another day vs swing bed and reassess in AM - extensive conversation with patient's mother regarding status - time spent >60mins UPDATE: Spoke with urologist, recommends hydrating patient with 2LNS overnight and try to get urine to run clear then DC taylor in AM. Does not think he is truly obstructed and that this is the result of trauma as initially suspected. Will discuss with family. Orders placed.
[2017-10-21] MEDS: cloNIDine TAB* 0.1 MG PO SCH ×2 (10:11→22:11)
[2017-10-21] MEDS: Divalproex Sprinkle CAP* 125 MG PO SCH ×2 (10:11→22:18)
[2017-10-21] MEDS: Clotrimazole 1% CREAM* 45 GM TOPICAL SCH ×2 (10:11→22:23)
[2017-10-21] MEDS: clonazePAM TAB(*) 0.5 MG PO SCH ×2 (10:12→22:12)
[2017-10-21] MEDS: busPIRone TAB* 10 MG PO SCH ×3 (10:12→22:12)
[2017-10-21] MEDS: Tamsulosin CAP* 0.4 MG PO SCH (10:12)
[2017-10-21] MEDS: levETIRAcetam TAB* 500 MG PO SCH ×2 (10:12→22:12)
[2017-10-21] MEDS: NS 0.9% 1000 ML* 1,000 ML IV SCH ×2 (12:34→19:35)
--- NOTE | 2017-10-21 15:14 | ED ---
Renate Oates Gabriel, scribed for Lalo Ramachandran MD on 10/19/17 at 1519 . GI/ HPI - HPI Summary HPI Summary: This patient is a 22 year old M BIBA to [facility] from a mental health facility with c/o blood coming from penis since an hour ago. Patient recently had a Lyon catheter removed and the staff found blood in his diaper [employer] about 50ml. LEVEL 5 CAVEAT: HPI limited because the patient is nonverbal and the current staff member has no knowledge of the situation. - History of Current Complaint Time Seen by Provider: 10/19/17 15:14 Stated Complaint: BLEEDING FROM PENIS Hx Obtained From: Family/Manager Internal, EMS Hx From Patient Unobtainable Due To: Other - non verbal Timing: Constant Severity: Moderate - Additional Pertinent History Primary Care Physician: ROGER - Allergy/Home Medications Allergies/Adverse Reactions: Allergies Allergy/AdvReac Type Severity Reaction Status Date / Time Clarithromycin [From Biaxin] Allergy Unknown Verified 10/05/17 22:13 Reaction Details Home Medications: Home Medications Lactulose [Lactulose] 30 ml PO TID 10/19/17 [History Confirmed 10/19/17] PMH/Surg Hx/FS Hx/Imm Hx Previously Healthy: No Endocrine/Hematology History: Reports: Hx Blood Disorders, Hx Systemic Lupus Erythematosus, Hx Sickle Cell Disease Denies: Hx Anemia Cardiovascular History: Reports: Hx Hypertension Denies: Hx Aneurysm, Hx Angioplasty, Hx Auto Implanted Cardiovert Defib, Hx Cardiac Arrest, Hx Cardiomegaly, Hx Congenital Heart Disease, Hx Congestive Heart Failure, Hx Rheumatic Fever, Hx Valvular Heart Disease, Other Cardiovascular Problems/Disorders Respiratory History: Denies: Hx Asthma, Hx Chronic Bronchitis, Hx Pneumonia, Hx Pulmonary Embolism GI History: Denies: Hx Cirrhosis, Hx Diverticulosis, Hx Hiatal Hernia, Hx Jaundice History: Denies: Hx Benign Prostatic Hyperplasia, Hx Chronic Renal Failure Musculoskeletal History: Denies: Hx Bursitis, Hx Osteoporosis, Other Musculoskeletal History Sensory History: Reports: Other Sensory Impairments - Autism Denies: Hx Contacts or Glasses, Hx Eye Injury, Hx Hearing Aid Opthamlomology History: Reports: Other Sensory Impairments - Autism Denies: Hx Contacts or Glasses, Hx Eye Injury Neurological History: Reports: Hx Developmental Delay, Hx Seizures Psychiatric History: Reports: Hx Anxiety, Hx Autism, Hx Depression, Other Psychiatric Issues/Disorders - Severe Autism Denies: Hx Panic Disorder, Hx Community Mental Health Tx, Hx Schizophrenia - Cancer History Hx Hematologic Symptoms: No Hx Chemotherapy: No - Surgical History Surgery Procedure, Year, and Place: hernia repair x2 at 3mo old, tail bone absyss drained Hx Anesthesia Reactions: No Infectious Disease History: Denies: Hx of Known/Suspected MRSA, Hx Shingles, Hx Tuberculosis, History Other Infectious Disease - Family History Known Family History: Positive: Unknown - Level 5 Caveat due to autism Family History: LEVEL 5 CAVEAT - NON-VERBAL SECONDARY TO AUTISM - Social History Alcohol Use: None Hx Substance Use: No Substance Use Type: Reports: None Hx Tobacco Use: No Smoking Status (MU): Never Smoked Tobacco Review of Systems - ROS Summary Review of Systems Summary: LEVEL 5 CAVEAT: ROS limited because the patient is nonverbal and the current staff member has no knowledge of the situation. Negative: Fever Positive: other - blood being excreted from penis All Other Systems Reviewed And Are Negative: No Physical Exam - Summary Physical Exam Summary: VITAL SIGNS: Reviewed. GENERAL: ~Patient is a well-developed and nourished male who is lying comfortable in the stretcher. ~Patient is not in any acute respiratory distress. HEAD AND FACE: No signs of trauma. ~No ecchymosis, hematomas or skull depressions. No sinus tenderness. EYES: PERRLA, EOMI x 2, No injected conjunctiva, no nystagmus. EARS: Hearing grossly intact. Ear canals and tympanic membranes are within normal limits. MOUTH: Oropharynx within normal limits. NECK: Supple, trachea is midline, no adenopathy, no JVD, no carotid bruit, no c- spine tenderness, neck with full ROM. CHEST: Symmetric, no tenderness at palpation LUNGS: Clear to auscultation bilaterally. No wheezing or crackles. CVS: Regular rate and rhythm, S1 and S2 present, no murmurs or gallops appreciated. ABDOMEN: Soft, non-tender. No signs of distention. No rebound no guarding, and no masses palpated. Bowel sounds are normal. EXTREMITIES: FROM in all major joints, no edema, no cyanosis or clubbing. NEURO: Alert and oriented x 3. No acute neurological deficits. Speech is normal and follows commands. SKIN: Dry and warm : Circumcised penis, both testicles are descended. No masses are appreciated. Positive cremasteric reflex. There is blood on the meatus. Triage Information Reviewed: Yes Vital Signs Reviewed: Yes Completion Of Physical Exam Limited Due To: Level 5 Diagnostics - Laboratory Result Diagrams: 10/19/17 16:05 10/19/17 16:05 Lab Statement: Any lab studies that have been ordered have been reviewed, and results considered in the medical decision making process. - Additional Comments Diagnostic Additional Comments: Renal US reveals, per radiologist, Right-sided pelvocaliectasis and very mild left-sided hydronephrosis, both similar to the previous ultrasound acquired October 13, 2017. ED physician has reviewed this radiology report and agrees. GIGU Course/Dx - Course Assessment/Plan: This patient is a 22 year old M BIBA to [facility] from a mental health facility with c/o blood coming from penis since an hour ago. Patient recently had a Lyon catheter removed and the staff found blood in his diaper [employer] about 50ml. 3 plus blood found in UA a bladder scan was performed and showed more than 500cc of urine which seemed like urinary retention. Placed Lyon and after initial blood clot there was clean urine. Renal US reveals, per radiologist, Right-sided pelvocaliectasis and very mild left-sided hydronephrosis, both. Similar to the previous ultrasound acquired October 13, 2017. Patient is very comfy with catheter and I was about to discharge however the [facility] care for a Lyon. Therefore talked with Dr. Seals who agreed to admit the patient. In the ED course, pt has been improving and is stable. Pt is hemodynamically stable and alert - Diagnoses Provider Diagnoses: Urinary retention, Hematuria - Physician Notifications Discussed Care Of Patient With: Yuko Seals Instructed by Provider To: Other - agreed to admit patient Discharge - Discharge Plan Condition: Stable Disposition: ADMITTED TO [facility] The documentation as recorded by the Renate stoner Gabriel accurately reflects the service I personally performed and the decisions made by me, Lalo Ramachandran MD.
[2017-10-21] MEDS: risperiDONE TAB* 1 MG PO SCH (17:38)
[2017-10-21] MEDS: Cetirizine* 10 MG TAB PO SCH (22:13)
--- NOTE | 2017-10-22 09:00 | PN ---
Subjective Date of Service: 10/22/17 Interval History: Patient seen and examined. No acute overnight events. Rep from half-way at bedside. Per RN, no issues. Patient appears comfortable. No grimace, tolerating PO, no agitation, remains non-verbal/at baseline. Unable to obtain other ROS 2/ 2 condition. Objective Active Medications: Acetaminophen (Tylenol Tab*) 650 mg PO Q4HR PRN PRN Reason: PAIN Last Admin: 10/20/17 17:28 Dose: 650 mg Buspirone HCl (Buspar Tab*) 10 mg PO TID [facility] Last Admin: 10/21/17 22:12 Dose: 10 mg Cetirizine HCl (Zyrtec*) 10 mg PO BEDTIME [facility] Last Admin: 10/21/17 22:13 Dose: 10 mg Clonazepam (Klonopin Tab(*)) 0.25 mg PO BID [facility] Last Admin: 10/21/17 22:12 Dose: 0.25 mg Clonidine HCl (Catapres Tab*) 0.2 mg PO BID [facility] Last Admin: 10/21/17 22:11 Dose: 0.2 mg Clotrimazole (Clotrimazole 1%*) 1 applic TOPICAL BID [facility] Stop: 10/23/17 20:59 Last Admin: 10/21/17 22:23 Dose: 1 apply Divalproex Sodium (Depakote Sprinkle Cap*) 500 mg PO BID [facility] Last Admin: 10/21/17 22:18 Dose: 500 mg Sodium Chloride (Ns 0.9% 1000 Ml*) 1,000 mls @ 150 mls/hr IV PER RATE [facility] Stop: 10/22/17 17:39 Last Admin: 10/21/17 19:35 Dose: 150 mls/hr Lactulose (Lactulose*) 30 ml PO TID [facility] Last Admin: 10/21/17 22:15 Dose: 30 ml Levetiracetam (Keppra Tab*) 1,000 mg PO BID [facility] Last Admin: 10/21/17 22:12 Dose: 1,000 mg Melatonin (Melatonin (Nf)) 3 mg PO BEDTIME PRN PRN Reason: INSOMNIA Last Admin: 10/20/17 21:32 Dose: 3 mg Risperidone (Risperdal*) 3 mg PO QPM [facility] Last Admin: 10/21/17 17:38 Dose: 3 mg Tamsulosin HCl (Flomax Cap*) 0.4 mg PO DAILY [facility] Last Admin: 10/21/17 10:12 Dose: 0.4 mg Vital Signs - 8 hr 10/22/17 10/22/17 02:23 03:13 Temperature 96.9 F Pulse Rate 51 Respiratory 16 16 Rate Blood Pressure 111/61 (mmHg) O2 Sat by Pulse 98 Oximetry Oxygen Devices in Use Now: None Appearance: Alert, NAD, well appearing Eyes: No Scleral Icterus, PERRLA Ears/Nose/Mouth/Throat: NL Teeth, Lips, Gums Neck: NL Appearance and Movements; NL JVP Respiratory: Symmetrical Chest Expansion and Respiratory Effort, Clear to Auscultation Cardiovascular: NL Sounds; No Murmurs; No JVD Abdominal: NL Sounds; No Tenderness; No Distention Extremities: No Edema - alert, non-verbal Skin: No Rash or Ulcers Lines/Tubes/Other Access: Clean, Dry and Intact Taylor - Urine running more clear in taylor bag Nutrition: Taking PO's Result Diagrams: 10/19/17 16:05 10/19/17 16:05 Assess/Plan/Problems-Billing Assessment: This is a 22 year old autistic man, with acute urinary retention and gross hematuria likely 2/2 taylor trauma. - Patient Problems (1) Acute urinary retention Code(s): R33.8 - OTHER RETENTION OF URINE SNOMED Code(s): 355677359 Comment: - Discussed with urology 10/21, hydrate and remove taylor - likely trauma- related and not mechanical obstruction - s/p 2 liters NS - DC taylor now, as urine is more clear - Bladder scan for PVR in 4 hours - Will DC flomax - US shows left hydronephrosis and right pelvocaliectasis (no interval change from previous per radiology report) (2) Hydronephrosis Code(s): N13.30 - UNSPECIFIED HYDRONEPHROSIS SNOMED Code(s): 89022357 Comment: - Follow up with urology outpatient (3) Full code status Code(s): Z78.9 - OTHER SPECIFIED HEALTH STATUS SNOMED Code(s): 837710302 (4) Hypertension Code(s): I10 - ESSENTIAL (PRIMARY) HYPERTENSION SNOMED Code(s): 76221346 Comment: - Stable on clonidine, lisinopril (5) Seizure Code(s): R56.9 - UNSPECIFIED CONVULSIONS SNOMED Code(s): 99464602 Comment: - Continue depakote sprinkles, keppra, remains stable (6) Autism Code(s): F84.0 - AUTISTIC DISORDER SNOMED Code(s): 239666756 Comment: - Stable, remains non-verbal, continue supportive care - continue risperidone - melatonin PRN (7) Polydipsia Code(s): R63.1 - POLYDIPSIA SNOMED Code(s): 51510453 Comment: - Monitor fluid intake and lytes, currently stable (8) Rash and nonspecific skin eruption Code(s): R21 - RASH AND OTHER NONSPECIFIC SKIN ERUPTION SNOMED Code(s): 199843772 Comment: - Encourage gely care and ambulation - barrier cream ordered - monitor skin (9) Hematuria Code(s): R31.9 - HEMATURIA, UNSPECIFIED SNOMED Code(s): 79877511 Comment: - Clearing with IVF - Per urology, may DC taylor this AM and void trial Status and Disposition: - Plan for DC foey and voiding trial this AM - Call placed to patient's mother that plan is to DC taylor this morning and if no further retention, DC back to half-way this afternoon with outpatient urology f/u. She is agreeable.
[2017-10-22 09:05] VITALS: BP 130/79
[2017-10-22] MEDS: Clotrimazole 1% CREAM* 45 GM TOPICAL SCH (09:43)
[2017-10-22] MEDS: busPIRone TAB* 10 MG PO SCH ×2 (09:44→14:47)
[2017-10-22] MEDS: Tamsulosin CAP* 0.4 MG PO SCH (09:44)
[2017-10-22] MEDS: levETIRAcetam TAB* 500 MG PO SCH (09:44)
[2017-10-22] MEDS: clonazePAM TAB(*) 0.5 MG PO SCH (09:44)
[2017-10-22] MEDS: cloNIDine TAB* 0.1 MG PO SCH (09:44)
[2017-10-22] MEDS: Divalproex Sprinkle CAP* 125 MG PO SCH (09:45)
--- NOTE | 2017-10-22 13:09 | DS ---
AMENDED REPORT NOW INCLUDES COSIGNER DESIGNATION - ESIGNED BEFORE ADJUSTMENT CC: Dr. Blayne Sheehan * DATE OF ADMISSION: 10/21/2017. DATE OF DISCHARGE: 10/22/2017. ATTENDING PROVIDER: Yuko Restrepo MD * (DICTATED BY BRIAN LOPEZ NP ) HOSPITAL COURSE: The patient was admitted on 10/19/2017 with a chief complaint of abdominal pain. At that time, Mr. Lepe, who is a 22-year-old male with a medical history significant for severe autism, he is nonverbal, lives in a intermediate, and has a significant seizure disorder, presented again with the intermediate workers for abdominal pain. He was found at the time to have retention of urine. A Lyon catheter was placed. It was noted that he had had a previous hospitalization approximately a couple of days before from October 12 to October 15, at which time he had a Lyon placed for status seizures. Apparently, the patient may or may not have had a traumatic insertion of Lyon at that time and has subsequently had some hematuria with the retention and had another Lyon placed in the ER. The patient was not able to go back to his intermediate at that time. He was admitted for observation where it was noted that he continued to have some gross hematuria and then there were some issues with trying to send him back to his intermediate with the Lyon catheter. His laboratories were grossly normal for the entire stay. We had several discussions with his intermediate about his management in the intermediate environment as they were no equipped to be managing any kind of advanced or further medical conditions. Urology was consulted. The patient was placed on Flomax and also given IV fluid hydration to see if we could clear the blood out of his urine and this morning after an additional 2 liters of normal saline, his urine began to run clear and we removed the Lyon catheter and did a trial to void. Three hours after removing the catheter, nurse reported a large volume urination on his own and his postvoid residual was only 20 ml, indicating that he is not retaining and is no longer obstructed secondary to his initial traumatic catheterization. Most of the urine is running clear with no clots and no further issues. The patient is now ready for discharge back to his intermediate. PAST MEDICAL HISTORY: Significant for autism, seizure disorder, some underlying hypertension. MEDICATIONS AT HOME: 1. Lactulose 30 ml three times a day. 2. Zyrtec 10 mg daily. 3. Tylenol as needed. 4. Clonazepam 0.25 mg two times a day. 5. Clotrimazole cream 1% twice daily as needed. 6. Risperidone 3 mg in the evening. 7. Keppra 1000 mg two times a day. 8. Depakote sprinkles 500 mg two times a day. 9. Clonidine 0.2 mg twice daily. 10. BuSpar 10 mg oral 3 times a day. Vitals Signs at the time of discharge: Temperature 98.4, heart rate 68, respiratory rate 18, blood pressure 130/79. LABORATORY DATA: Laboratories dated October 19 at admission: WBC 7.8, RBC 4.49, hemoglobin 13.5, hematocrit 38, platelets 189; sodium 135, potassium 3.8, chloride 101, CO2 26, BUN 11, creatinine 0.59, GFR 217, glucose 87, calcium 9.5 , total bili 0.5, AST 20, ALT 20, alk phos 39, CRP less than 1, protein 7.2, albumin 4.6, lipase 27. Urine showed negative for nitrates, 3+ blood, 2+ RBC, 1+ bacteria, negative for glucose, negative for nitrates. The patient was stabilized and again ready for discharge on 10/22/2017. I had a conversation with his mother, Ms. Martin, and explained his condition. She was in agreement with his plan of care. Social work and case management were also in contact with his intermediate and explained the patient will be discharged back to the intermediate this afternoon. They were also in agreement. The patient will have follow-up with Urology and his primary care provider, Dr. Blayne Sheehan. Should follow-up with Urology in the next one to two weeks to ensure there are no further obstructions. Also of note, the patient did have an ultrasound of the kidneys which showed some pelvocaliectasis on the right and mild hydronephrosis on the left, but it did not reveal any interval changes from the last renal ultrasound that the patient had had in the past. The patient was discharged in stable condition. All questions were answered to the mother who is his primary guardian. No new medications were added to the patient's current regimen. BRIAN LOPEZ, CLINICAL EXERCISE PHYSIOLOGIST [id number]/[facility] #: [id number] [facility] COLLEGE HOSPITALMariza
== END 2017-10-22 15:10 | DRG 466 ==
LOC: ED 14:54 → MED 17:53 → OBSVTOIN 10-21 15:00
PROVIDERS: ADMIT Internal Medicine; ATTEND Internal Medicine
PROC: 0T9B70Z Drainage of Bladder with Drainage Device, Via Natural or Artificial Opening (ICD-10-PCS; principal; 2017-10-21)
PROC: 0TPBX0Z Removal of Drainage Device from Bladder, External Approach (ICD-10-PCS; 2017-10-22)
DX: T83.098A Other mechanical complication of other urinary catheter, initial encounter (principal); F84.0 Autistic disorder; M32.9 Systemic lupus erythematosus, unspecified; D57.1 Sickle-cell disease without crisis; N13.30 Unspecified hydronephrosis; Y84.8 Other medical procedures as the cause of abnormal reaction of the patient, or of later complication, without mention of misadventure at the time of the procedure; Y92.239 Unspecified place in hospital as the place of occurrence of the external cause; R33.9 Retention of urine, unspecified; I10 Essential (primary) hypertension; G40.909 Epilepsy, unspecified, not intractable, without status epilepticus; F41.9 Anxiety disorder, unspecified; F32.9 Major depressive disorder, single episode, unspecified; N13.9 Obstructive and reflux uropathy, unspecified; R63.1 Polydipsia; R21 Rash and other nonspecific skin eruption; R31.9 Hematuria, unspecified; Z88.1 Allergy status to other antibiotic agents
CPT/HCPCS: 36415; 76775; 80053; 81003; 81015; 83690; 85025; 86140; 87086; A9270-GY; G0378

== ENCOUNTER 2017-10-26 22:40 | Emergency (ER) | payer BC, MEDICAID ==
[2017-10-27 00:04] VITALS: BP 138/86
--- NOTE | 2017-10-27 00:05 | ED ---
Substance Abuse/Use - HPI Summary HPI Summary: Pt brought in by ambulance from [facility] for possible ingestion of Scrub Free bathroom steam cleaner with Oxy Clean. It is unknown if pt actually ingested steam cleaner as this was not witnessed and pt is non-verbal. EMS states staff reports pt had bottle in hand and cap on. Bottle has spray handle. Staff report small amount in bottle. vp integration applied with noted NSR with HR 84. Patient has a history of seizure disorder, autism, non-verbal. - History Of Current Complaint Chief Complaint: EDOverdose Stated Complaint: POSSIBLE CHEMICAL INGESTION Time Seen by Provider: 10/26/17 22:49 Hx Obtained From: EMS, Medical Records Hx From Patient Unobtainable Due To: Altered Mental Status Ingestion History: Type/Name Of Drug - steam cleaner - inorganic, Amount Ingested - probable not ingested - Risk Factor(s) Completed Suicide Risk Factors: Male - Allergies/Home Medications Allergies/Adverse Reactions: Allergies Allergy/AdvReac Type Severity Reaction Status Date / Time Clarithromycin [From Biaxin] Allergy Unknown Verified 10/05/17 22:13 Reaction Details PMH/Surg Hx/FS Hx/Imm Hx Previously Healthy: No Endocrine/Hematology History: Reports: Hx Blood Disorders, Hx Systemic Lupus Erythematosus, Hx Sickle Cell Disease Denies: Hx Anemia Cardiovascular History: Reports: Hx Hypertension Denies: Hx Aneurysm, Hx Angioplasty, Hx Auto Implanted Cardiovert Defib, Hx Cardiac Arrest, Hx Cardiomegaly, Hx Congenital Heart Disease, Hx Congestive Heart Failure, Hx Pacemaker/ICD, Hx Rheumatic Fever, Hx Valvular Heart Disease, Other Cardiovascular Problems/Disorders Respiratory History: Denies: Hx Asthma, Hx Chronic Bronchitis, Hx Pneumonia, Hx Pulmonary Embolism GI History: Denies: Hx Cirrhosis, Hx Diverticulosis, Hx Hiatal Hernia, Hx Jaundice History: Denies: Hx Benign Prostatic Hyperplasia, Hx Chronic Renal Failure Musculoskeletal History: Denies: Hx Bursitis, Hx Osteoporosis, Other Musculoskeletal History Sensory History: Reports: Other Sensory Impairments - Autism Denies: Hx Contacts or Glasses, Hx Eye Injury, Hx Hearing Aid Opthamlomology History: Reports: Other Sensory Impairments - Autism Denies: Hx Contacts or Glasses, Hx Eye Injury Neurological History: Reports: Hx Developmental Delay, Hx Seizures Psychiatric History: Reports: Hx Anxiety, Hx Autism, Hx Depression, Other Psychiatric Issues/Disorders - Severe Autism Denies: Hx Panic Disorder, Hx Community Mental Health Tx, Hx Schizophrenia - Cancer History Hx Hematologic Symptoms: No Hx Chemotherapy: No - Surgical History Surgery Procedure, Year, and Place: hernia repair x2 at 3mo old, tail bone absyss drained Hx Anesthesia Reactions: No - Immunization History Hx Pertussis Vaccination: No Immunizations Up to Date: Yes Infectious Disease History: No Infectious Disease History: Denies: Hx of Known/Suspected MRSA, Hx Shingles, Hx Tuberculosis, History Other Infectious Disease, Traveled Outside the [place] in Last 30 Days - Family History Known Family History: Positive: Unknown - Level 5 Caveat due to autism Family History: LEVEL 5 CAVEAT - NON-VERBAL SECONDARY TO AUTISM - Social History Occupation: Disabled Lives: Skilled Nursing Alcohol Use: None Hx Substance Use: No Substance Use Type: Reports: None Hx Tobacco Use: No Smoking Status (MU): Never Smoked Tobacco Review of Systems - ROS Summary Review of Systems Summary: Unable to review ROS d/t patient non-verbal status All Other Systems Reviewed And Are Negative: Yes Physical Exam Triage Information Reviewed: Yes Vital Signs On Initial Exam: Initial Vitals BP 135/58 10/26/17 22:47 Vital Signs Reviewed: Yes Appearance: Positive: Thin - patient appears to be comfortable Skin: Positive: Skin Color Reflects Adequate Perfusion Head/Face: Positive: Normal Head/Face Inspection Eyes: Positive: EOMI Neck: Positive: Supple Respiratory/Lung Sounds: Positive: Breath Sounds Present Cardiovascular: Positive: RRR Musculoskeletal: Positive: Other - no pain on palpation of bilateral upper extremities Diagnostics - Vital Signs Vital Signs Temp Pulse Resp BP Pulse Ox 10/26/17 23:00 137/91 10/26/17 22:50 97.7 F 84 16 135/58 100 10/26/17 22:49 71 15 98 10/26/17 22:47 135/58 - Laboratory Lab Statement: Any lab studies that have been ordered have been reviewed, and results considered in the medical decision making process. Course/Dx - Course Course Of Treatment: Poison control called by this ad copy writer. Wharf Tender spoke with Melinda who states if there was ingestion GI consult would be recommended. This ad copy writer spoke with staff at [facility] who confirm unknown if ingestion. Patient is evaluated and assessed for complications from ingestion. He is monitored for 2 hours in the ED with no change of behavior, difficulty breathing, or symptoms of pain. Also, dexterity and gripping mechanisms in the hand - it would be difficult for him to uncap the bottle or spray the bottle. Very likely no caustic substance/steam cleaner was ingested or was in the mouth. He is able to be discharged back to his facility at this time. - Diagnoses Provider Diagnoses: Autistic behavior Discharge - Discharge Plan Condition: Stable Disposition: HOME Referrals: Librado TODD,Tomas Alfred [Primary Care Provider] -
== END 2017-10-27 00:08 | disposition home or self-care (01) ==
LOC: ED 22:40
DX: F84.0 Autistic disorder (principal)
CPT/HCPCS: 99282

== ENCOUNTER 2017-11-09 05:50 | Observation (INO) | payer BC, MEDICAID ==
[2017-11-09] MEDS ORDERED: NS 0.9% 1000 ML* 1,000 ML IV ONE ×3 (06:24→13:30)
--- NOTE | 2017-11-09 06:43 | ED ---
Junior Oates Tiffany, scribed for Nacho Truong on 11/09/17 at 0631 . Neurological HPI - HPI Summary HPI Summary: This patient is a 22 year old M BIBA to [facility] s/p seizure at 0500 today. The seizure is resolved at time of evaluation. Symptoms aggravated by nothing. Symptoms alleviated by nothing. The patient arrived back at [facility] after visiting parents and began seizing. This is normal for patient and has been happening every Friday the past month. LEVEL 5 CAVEAT: Patient's HPI is limited due to patient's non-verbal state second to autism - History of Current Complaint Chief Complaint: EDSeizure Stated Complaint: SEIZURE Time Seen by Provider: 11/09/17 06:14 Hx Obtained From: Patient Onset/Duration: Started minutes ago - 0500 today, Resolved Aggravating: Nothing Alleviating: Nothing - Additional Pertinent History Primary Care Physician: ROGER - Allergy/Home Medications Allergies/Adverse Reactions: Allergies Allergy/AdvReac Type Severity Reaction Status Date / Time Clarithromycin [From Biaxin] Allergy Unknown Verified 11/09/17 05:52 Reaction Details PMH/Surg Hx/FS Hx/Imm Hx Previously Healthy: No Endocrine/Hematology History: Reports: Hx Blood Disorders, Hx Systemic Lupus Erythematosus, Hx Sickle Cell Disease Denies: Hx Anemia Cardiovascular History: Reports: Hx Hypertension Denies: Hx Aneurysm, Hx Angioplasty, Hx Auto Implanted Cardiovert Defib, Hx Cardiac Arrest, Hx Cardiomegaly, Hx Congenital Heart Disease, Hx Congestive Heart Failure, Hx Pacemaker/ICD, Hx Rheumatic Fever, Hx Valvular Heart Disease, Other Cardiovascular Problems/Disorders Respiratory History: Denies: Hx Asthma, Hx Chronic Bronchitis, Hx Pneumonia, Hx Pulmonary Embolism GI History: Denies: Hx Cirrhosis, Hx Diverticulosis, Hx Hiatal Hernia, Hx Jaundice History: Denies: Hx Benign Prostatic Hyperplasia, Hx Chronic Renal Failure Musculoskeletal History: Denies: Hx Bursitis, Hx Osteoporosis, Other Musculoskeletal History Sensory History: Reports: Other Sensory Impairments - Autism Denies: Hx Contacts or Glasses, Hx Eye Injury, Hx Hearing Aid Opthamlomology History: Reports: Other Sensory Impairments - Autism Denies: Hx Contacts or Glasses, Hx Eye Injury Neurological History: Reports: Hx Developmental Delay, Hx Seizures Psychiatric History: Reports: Hx Anxiety, Hx Autism, Hx Depression, Other Psychiatric Issues/Disorders - Severe Autism Denies: Hx Panic Disorder, Hx Community Mental Health Tx, Hx Schizophrenia - Cancer History Hx Hematologic Symptoms: No Hx Chemotherapy: No - Surgical History Surgery Procedure, Year, and Place: hernia repair x2 at 3mo old, tail bone absyss drained Hx Anesthesia Reactions: No - Immunization History Date of Tetanus Vaccine: unk Date of Influenza Vaccine: unk Infectious Disease History: No Infectious Disease History: Denies: Hx of Known/Suspected MRSA, Hx Shingles, Hx Tuberculosis, History Other Infectious Disease, Traveled Outside the [place] in Last 30 Days - Family History Known Family History: Positive: Unknown - Level 5 Caveat due to autism Family History: LEVEL 5 CAVEAT - NON-VERBAL SECONDARY TO AUTISM - Social History Alcohol Use: None Hx Substance Use: No Substance Use Type: Reports: None Hx Tobacco Use: No Smoking Status (MU): Never Smoked Tobacco Review of Systems - ROS Summary Review of Systems Summary: LEVEL 5 CAVEAT: Patient's ROS is limited due to patient's non-verbal state second to autism Negative: Fever All Other Systems Reviewed And Are Negative: No Physical Exam - Summary Physical Exam Summary: Appearance: lethargic Skin: warm, dry, reflects adequate perfusion Head/face: normal Eyes: EOMI, AYAKA ENT: normal Neck: supple, non-tender Respiratory: CTA, breath sounds present Cardiovascular: tachycardia Abdomen: non-tender, soft Bowel: present Musculoskeletal: no pedal edema Neuro: lethargic Triage Information Reviewed: Yes Vital Signs On Initial Exam: Initial Vitals Temp Pulse Resp BP Pulse Ox 98.8 F 138 28 137/89 92 11/09/17 05:51 11/09/17 05:51 11/09/17 05:51 11/09/17 05:51 11/09/17 05:51 Vital Signs Reviewed: Yes - Lacey Coma Scale Coma Scale Total: 8 Diagnostics - Vital Signs Vital Signs Temp Pulse Resp BP Pulse Ox 11/09/17 05:51 98.8 F 138 28 137/89 92 - Laboratory Lab Statement: Any lab studies that have been ordered have been reviewed, and results considered in the medical decision making process. - EKG 06:11 Cardiac Rate: NL EKG Rhythm: Sinus Tachycardia - 122 BPM Course/Dx - Course Course Of Treatment: This patient is a 22 year old M BIBA to [facility] s/p seizure at 0500 today. This is normal for the patient and has been happening every Friday the past month. An EKG reveals sinus tachycardia 122 0611. Patient will be signed out to Dr. Jung at shift change, awaiting lab results and reevaluation. - Diagnoses Provider Diagnoses: Seizure disorder Discharge - Discharge Plan Condition: Fair Disposition: OTHER Discharge Disposition Comment: Patient will be signed out, awaiting lab results and reevaluation. Referrals: Librado TODD,Tomas Alfred [Primary Care Provider] - The documentation as recorded by the Junior stoner Tiffany accurately reflects the service I personally performed and the decisions made by , Nacho Truong.
[2017-11-09 07:36] LABS: EGFR Non-African American 90.8 (>60)
[2017-11-09 07:46] LABS: ABS Basophils 0 10^3/ul (0-0.2); ABS Eosinophils 0 10^3/ul (0-0.6); ABS Lymphocytes 0.9 10^3/ul (1.0-4.8); ABS Monocytes 1.4 10^3/ul (0-0.8); ABS Neutrophils 10.4 10^3/ul (1.5-7.7); ABS Nucleated RBC 0.01 10^3/ul; Eosinophil % 0.3 % (0-6); Hematocrit 43 % (42-52); Hemoglobin 15.2 g/dl (14.0-18.0); Mean Corpuscular HGB Conc 35 g/dl (31-36); Mean Corpuscular Hemoglobin 30 pg (27-31); Mean Corpuscular Volume 86 fL (80-94); Mean Platelet Volume 9 um3 (7.4-10.4); Nucleated Red Blood Cells % 0.1; Platelet Count 158 10^3/ul (150-450); Red Blood Count 5.02 10^6/ul (4.0-5.4); Red Cell Distribution Width 13 % (10.5-15); White Blood Count 12.8 10^3/ul (3.5-10.8)
[2017-11-09] MEDS ORDERED: levETIRAcetam IV* 1,000 MG in NS 0.9% 100 ML* 100 ML IVPB ONE (08:41)
[2017-11-09] MEDS ORDERED: cloNIDine TAB* 0.1 MG PO ONE (10:50)
[2017-11-09] MEDS ORDERED: clonazePAM TAB(*) 0.5 MG PO ONE (10:50)
[2017-11-09] MEDS ORDERED: Divalproex Sprinkle CAP* 125 MG PO ONE ×2 (10:50→12:11)
[2017-11-09] MEDS ORDERED: busPIRone TAB* 15 MG PO ONE (10:55)
[2017-11-09] MEDS ORDERED: Acetaminophen TAB* 325 MG PO PRN (11:24)
[2017-11-09] MEDS ORDERED: Ondansetron INJ* 2 MG/ML VIAL IV PRN (11:24)
[2017-11-09] MEDS: NS 0.9% 1000 ML* 2,000 ML IV ONE (11:59)
[2017-11-09] MEDS ORDERED: busPIRone TAB* 10 MG PO ONE (12:00)
--- NOTE | 2017-11-09 12:14 | PN ---
Progress Note - Progress Note Date of Service: 11/09/17 Note: I spoke with the patient's mother and his aide, examined the patient and reviewed the medical record. I discussed the diagnosis and treatment plan with NEENA Benites. I agree with his plan.
--- NOTE | 2017-11-09 12:35 | RAD ---
Indication: Seizures, elevated white blood cell count. Single frontal view of the chest performed at 1140 hours was reviewed. Comparison is made with previous exam dated October 13, 2017. No mediastinal shift is noted. Heart is of normal size and configuration. Lung lou appear clear. IMPRESSION: NO ACTIVE CARDIOPULMONARY DISEASE IS NOTED.
[2017-11-09] MEDS: cefTRIAXone(*) 1 GM in D5W 50 ML BAG* 50 ML IVPB SCH (13:35)
[2017-11-09] MEDS: busPIRone TAB* 10 MG PO SCH ×2 (13:35→20:14)
[2017-11-09] MEDS: Acetaminophen TAB* 325 MG PO SCH ×2 (13:35→20:12)
--- NOTE | 2017-11-09 13:50 | HP ---
CC: Dr. Pavon * HISTORY AND PHYSICAL: DATE OF ADMISSION: 11/09/17 PRIMARY CARE PROVIDER: Dr. Pavon. ATTENDING PHYSICIAN WHILE IN THE HOSPITAL: Alhaji Peres MD * (report dictated by Deejay Benites NP). CHIEF COMPLAINT: Seizure. HISTORY OF PRESENT ILLNESS: I would like to preface the report by saying that the patient is nonverbal, he has a significant amount of autism. He has a history of hypertension, seizures and I believe that the mother said that he may have had a history of primary polydipsia, but we will need to clarify that was primary. He comes in today because last night he was at the [facility] and he had a seizure and per their protocol, he was sent in to the hospital to be evaluated. I discussed with the patient's health aide that is present with him and the family that there was no report of recent nausea, vomiting and no diarrhea. There has been no reports of coughing, chest pain, fevers, chills. He had no reports of again, abdominal discomfort and to their knowledge he has been voiding appropriately. That was an issue the last time he was here in the hospital. He had issues with a traumatic Lyon insertion and the catheter was removed and finally he started to void on his own again. He came into the ED today. It was noted that he was tachycardic. He appeared to be dehydrated and the patient also was noted to be agitated. There was concern because he had little bit of a white count. In addition to this, he had appeared to be dehydrated, he was tachycardic. There was concern for possible SIRS and we were asked to evaluate for admission. PAST MEDICAL HISTORY: Significant for; 1. Autism. 2. Hypertension. 3. Seizure. 4. Primary polydipsia, but we will need to clarify this diagnosis with the patient's primary as the mother is unsure if that is what she was told that he has. PAST SURGICAL HISTORY: 1. Hernia repair. 2. Pilonidal cyst removal. HOME MEDICATIONS: Include; 1. Risperdal 3 mg p.o. daily. 2. Keppra 1000 mg p.o. b.i.d. 3. Klonopin 0.25 mg p.o. b.i.d. 4. Catapres 0.2 mg p.o. b.i.d. 5. BuSpar 10 mg p.o. t.i.d. 6. Lactulose 30 cc p.o. t.i.d. 7. Depakote 500 mg p.o. b.i.d. 8. Clotrimazole 1 application topically b.i.d. as needed. 9. Cetirizine 10 mg p.o. at bedtime. 10. Tylenol 650 mg every 4 hours as needed. ALLERGIES: To medications include BIAXIN. FAMILY HISTORY: Both his parents were present at bedside. They said that they are both healthy. There is no report of strokes, heart attacks, or cancers. SOCIAL HISTORY: He does not smoke, does not drink. He lives at [facility]. Surrogate decision maker is his parents. REVIEW OF SYSTEMS: Again, really unable to be obtained from the patient because of his nonverbal autism. It is per my HPI. PHYSICAL EXAMINATION GENERAL: At this time, Mr. Lepe is a 22-year-old male patient, he is sitting in the ER stretcher. He does not appear to be in any acute distress. He is awake and he will respond to his name being called. VITAL SIGNS: Blood pressure 126/81. His pulse was 140. His O2 sat was 95%. Temperature was 98.1. HEENT: Head is atraumatic. Eyes: EOMs are intact. Sclerae anicteric. Pupils are equal and reactive to light. Throat: Oral mucosa appears to be dry. No oropharyngeal erythema. NECK: Supple. LUNGS: Clear to auscultation. No wheezes, rales, or rhonchi. HEART: Sounds S1 and S2. He is tachycardic. ABDOMEN: Soft, flat. It was nontender. Bowel sounds present. EXTREMITIES: His pulses were 2+ throughout. He is moving all 4 extremities with 5/5 strength. NEUROLOGIC: He is awakening to his name. He is alert. He is moving all 4 extremities grossly. He had no gross focal deficits. SKIN: Intact. LABORATORY DATA/DIAGNOSTIC STUDIES: WBC 12.8, RBC 5.02, hemoglobin 15.2, hematocrit 43, platelet count 158,000. ABG showed pH of 7.52, pCO2 of 31, pO2 of 80. He has sodium of 141, potassium 4.2, chloride 101, bicarbonate 27, BUN 9 , creatinine 1.01, glucose 124, lactic 3, calcium 9.7, magnesium 2.0, total bilirubin 0.3, AST 20, ALT 30, alkaline phosphatase 70, albumin 5.3. Valproic acid level was normal. He did have an EKG obtained today as well, which shows sinus tachycardia with rate of [address] depression. The T-wave inversions are now new, and they were inverted previously in V4. He has had this with sinus tachycardia in the past. He has had a similar EKG morphology when we look back to the February exam, suspect the ST changes we are seeing are rate related, but to be safe, I will add on a troponin and cycle them. Old medical records were reviewed. ASSESSMENT AND PLAN: Mr. Lepe is a 22-year-old male patient coming into the ED today with a history of nonverbal autism, having a seizure. On evaluation here today, he was found to be tachycardic. He appears to be profoundly dehydrated and has concern for underlying systemic inflammatory response syndrome, possible infection. We were asked to evaluate for admission. He will be admitted under inpatient status for: 1. Systemic inflammatory response syndrome, and he is tachycardic. He has a little bit of a white count. I am going to get a chest x-ray. We will scan his bladder. If he is retaining urine that could be the culprit there. The family does not want to place a catheter given the previous experience, which I understand. I explained to them should he be retaining urine, then I would certainly pursue catheter placement to rule out this as a source. He was not tender on his abdomen for exam. I will check him for a flu, chest x-ray. He is going to get 3 L of fluid. He got 1 down here in the ED. I ordered an additional 2 serial lactics and we will continue to follow him closely to see if we can find a source. 2. EKG changes. Again, he has diffuse ST depression. The T-wave inversion is probably rate related. It is difficult to say if he is having any chest pain, but he has no risk factors for acute coronary syndrome. My plan will be just to cycle his troponins, get the heart rate down, repeat the EKG, and follow this closely. 3. History of autism. Continue with supportive care. 4. History of hypertension. Continue meds as prescribed. 5. History of seizure. Continue meds as prescribed and seizure precautions. 6. Question of polydipsia. At this point, we will continue him on a regular diet and we will try to clarify this diagnosis. 7. DVT prophylaxis. He will be placed on SCDs. 8. Code status. Full code. 9. Fluids, electrolytes, and nutrition. He can have a regular diet. TIME SPENT: Time spent on the admission was approximately 60 minutes, greater than half the time was spent [id number] with the patient obtaining my history and physical; the other half time was spent going over the plan of care with the patient and implementing plan of care. I did discuss the plan of care with my attending, Dr. Peres; who is in agreement. DEEJAY BENITES, NEENA [id number]/[facility] #: [id number] GERALD
[2017-11-09 14:35] LABS: Urine Appearance Clear; Urine Blood Negative (Negative); Urine Color Yellow; Urine Ketones Trace (Negative); Urine Protein Negative (Negative); Urine Specific Gravity 1.018 (1.010-1.030); Urine Urobilinogen Negative (Negative)
--- NOTE | 2017-11-09 14:58 | ED ---
Mg Oates Abhishek, scribed for Vipul Jung MD on 11/09/17 at 0852 . Progress - Progress Note Progress Note: This patient was signed out from Dr. Truong; pending disposition. We consulted Dr. Worrell at 0845 and she states that the patient has visited her office. These visits are not in the system. Pt has bladder emptying studies. Urine retention is behavioral. She recommends if there is suspicion for urinary tract infection to treat patient. We spoke to the patients mother at 0900 and discussed patient plan. The patients condition is stable and will be discharged to home with Dx of _. - Consult/PCP Time Called: 08:45 Consult/PCP: Dr. Worrell Consult Reason/Comments: We consulted Dr. Worrell at 0845 and she states that the patient has visited h - Additional EKG/XRAY/Consults Time Called: 09:45 Consult/PCP: Dr. Tobin Reason/Comments: Patient reports persistent tachycardia Course/Dx - Course Course Of Treatment: This patient was signed out from Dr. Truong, pending disposition. We consulted Dr. Worrell at 0845 and she states that the patient has visited her office. These visits are not in the system. Pt has bladder emptying studies. Urine retention is behavioral. She recommends if there is suspicion for urinary tract infection to treat patient. We consulted Dr. Tobin about patient's reports of persistant tachycardia. We spoke to the patients mother at 0900 and discussed patient plan. The patients condition is stable and will be discharged to home with Dx of _. - Diagnoses Provider Diagnoses: Seizure, Lactic acidosis The documentation as recorded by the Mg stoner Abhishek accurately reflects the service I personally performed and the decisions made by , Vipul Jung MD.
[2017-11-09] MEDS: risperiDONE TAB* 3 MG PO SCH (17:17)
[2017-11-09] MEDS: NS 0.9% 1000 ML* 1,000 ML IV SCH (17:17)
[2017-11-09] MEDS: clonazePAM TAB(*) 0.5 MG PO SCH (20:11)
[2017-11-09] MEDS: cloNIDine TAB* 0.1 MG PO SCH (20:13)
[2017-11-09] MEDS: levETIRAcetam TAB* 500 MG PO SCH (20:14)
[2017-11-09] MEDS: Divalproex Sprinkle CAP* 125 MG PO SCH (20:15)
[2017-11-09] MEDS ORDERED: Cetirizine* 10 MG TAB PO SCH (21:00)
[2017-11-10] MEDS: NS 0.9% 1000 ML* 1,000 ML IV SCH (02:03)
[2017-11-10] MEDS: Divalproex Sprinkle CAP* 125 MG PO SCH (08:22)
[2017-11-10] MEDS: Acetaminophen TAB* 325 MG PO SCH ×2 (08:22→13:51)
[2017-11-10] MEDS: busPIRone TAB* 10 MG PO SCH ×2 (08:22→13:51)
[2017-11-10] MEDS: cloNIDine TAB* 0.1 MG PO SCH (08:22)
[2017-11-10] MEDS: levETIRAcetam TAB* 500 MG PO SCH (08:22)
[2017-11-10] MEDS: clonazePAM TAB(*) 0.5 MG PO SCH (08:23)
[2017-11-10] MEDS ORDERED: LORazepam TAB(*) 0.5 MG PO ONE (09:52)
[2017-11-10 10:22] LABS: ABS Basophils 0 10^3/ul (0-0.2); ABS Eosinophils 0.2 10^3/ul (0-0.6); ABS Lymphocytes 2.4 10^3/ul (1.0-4.8); ABS Monocytes 0.7 10^3/ul (0-0.8); ABS Neutrophils 3.2 10^3/ul (1.5-7.7); ABS Nucleated RBC 0 10^3/ul; Eosinophil % 3.7 % (0-6); Hematocrit 39 % (42-52); Hemoglobin 13.7 g/dl (14.0-18.0); Mean Corpuscular HGB Conc 35 g/dl (31-36); Mean Corpuscular Hemoglobin 30 pg (27-31); Mean Corpuscular Volume 86 fL (80-94); Mean Platelet Volume 8 um3 (7.4-10.4); Nucleated Red Blood Cells % 0; Platelet Count 141 10^3/ul (150-450); Red Blood Count 4.51 10^6/ul (4.0-5.4); Red Cell Distribution Width 13 % (10.5-15); White Blood Count 6.6 10^3/ul (3.5-10.8)
[2017-11-10 10:37] LABS: EGFR Non-African American 168.8 (>60)
[2017-11-10] MEDS: cefTRIAXone(*) 1 GM in D5W 50 ML BAG* 50 ML IVPB SCH (12:05)
[2017-11-10 16:01] VITALS: BP 122/68
[2017-11-10] MEDS: risperiDONE TAB* 3 MG PO SCH (17:20)
--- NOTE | 2017-11-10 17:37 | PN ---
Progress Note - Progress Note Date of Service: 11/10/17 Note: Discharge Progress Note Primary Diagnosis: viral infection NOS Secondary Diagnoses: developmental delay, non-verbal autism seizure disorder hypertension primary polydipsia Consultations: none Procedures: none Pertinent lab/radiology testing: Laboratory Tests 11/09/17 11/09/17 11/09/17 06:45 07:39 12:39 WBC 12.8 H Lactic Acid 5.0 H* Troponin I Urine Color Urine Ketones Urine Blood Ur Leukocyte Esterase Urine Glucose Valproic Acid 70.0 Influenza A (Rapid) Influenza B (Rapid) 11/09/17 11/09/17 11/09/17 12:39 13:24 14:28 WBC Lactic Acid Troponin I 0.14 H* Urine Color Yellow Urine Ketones Trace H Urine Blood Negative Ur Leukocyte Esterase Negative Urine Glucose 1+(50 mg/dl) H Valproic Acid Influenza A (Rapid) Negative Influenza B (Rapid) Negative 11/09/17 11/09/17 11/09/17 16:30 16:30 22:03 WBC Lactic Acid 1.4 Troponin I 0.12 H* 0.07 H* Urine Color Urine Ketones Urine Blood Ur Leukocyte Esterase Urine Glucose Valproic Acid Influenza A (Rapid) Influenza B (Rapid) 11/10/17 10:10 WBC 6.6 Lactic Acid Troponin I Urine Color Urine Ketones Urine Blood Ur Leukocyte Esterase Urine Glucose Valproic Acid Influenza A (Rapid) Influenza B (Rapid) Tests pending upon discharge: Physical exam: Selected Entries 11/10/17 11/10/17 16:01 17:00 Temperature 36.7 C Pulse Rate 62 Heart Rate 75 Respiratory 18 Rate Blood Pressure 122/68 (mmHg) O2 Sat by Pulse 98 Oximetry Good eye contact, non-verbal Lungs: clear Heart; RRR, no murmur Abdo: soft, NT, +BS
--- NOTE | 2017-11-11 01:48 | DS ---
CC: Dr. Tomas Pavon in [place] DISCHARGE SUMMARY: DATE OF ADMISSION: 11/09/17 DATE OF DISCHARGE: 11/10/17 PRIMARY DIAGNOSIS: Viral syndrome, not otherwise specified. SECONDARY DIAGNOSES: 1. Autism with severe developmental delay. 2. Nonverbal. 3. Seizure disorder. 4. Hypertension. 5. Primary polydipsia. MEDICATIONS ON DISCHARGE: 1. Acetaminophen 650 mg p.o. q.4 hours p.r.n. fever or pain. 2. Buspirone 10 mg p.o. t.i.d. 3. Cetirizine 10 mg p.o. q.p.m. 4. Clonazepam 0.25 mg p.o. b.i.d. 5. Clonidine 0.2 mg p.o. b.i.d. 6. Clotrimazole 1% cream topically to affected areas daily as needed. 7. Depakote Sprinkle 500 mg p.o. b.i.d. 8. Lactulose 30 mL p.o. t.i.d. 9. Keppra 1000 mg p.o. b.i.d. 10. Risperdal 3 mg p.o. q.p.m. HOSPITAL COURSE: A 22-year-old man who is nonverbal, presented to the emergency department with tach ycardia. He was assessed to have dehydration, high white cell count and possible SIRS or sepsis. Hi s initial white count was 12.8 which fell to 6.6 on the next day. His flu swab was negative. Tropon in was elevated at 0.14 and fell to 0.07 on discharge. Initial lactic acid was elevated at 5.0 and f ell to 1.4 after 4 hours. The patient was admitted to telemetry due to the elevated troponin and giv en intravenous fluids, an empiric dose of ceftriaxone in the emergency department. After 3 L of flui d, his heart rate fell to 60s to 80s range and he has no further vital sign abnormalities. Urinalysi s showed traces of ketones and sugar, but no white cells or blood. Blood and urine cultures were neg ative to date. Urine Legionella and pneumococcal antigens are negative. The evening of discharge, t he patient was at baseline mental status according to his mother. He was taking p.o. and making good eye contact, no distress. DISPOSITION: Return to the skilled nursing where he lives in [place]. ACTIVITIES: Should be out of bed to chair with assistance and advance as tolerated. DIET: Should be regular and return to baseline diet. [id number]/[facility] #: [id number]
== END 2017-11-10 19:40 ==
LOC: ED 05:50 → INTOOBSV 11:21 → MEDTELE 11:21
PROVIDERS: ADMIT Internal Medicine; ATTEND Internal Medicine
DX: B34.9 Viral infection, unspecified (principal); G40.89 Other seizures; R00.0 Tachycardia, unspecified; E86.0 Dehydration; R65.10 Systemic inflammatory response syndrome (SIRS) of non-infectious origin without acute organ dysfunction; D72.829 Elevated white blood cell count, unspecified; R74.8 Abnormal levels of other serum enzymes; E87.2 Acidosis; F84.0 Autistic disorder; F79 Unspecified intellectual disabilities; I10 Essential (primary) hypertension; R63.1 Polydipsia; Z79.899 Other long term (current) drug therapy
CPT/HCPCS: 36415; 71010; 80048; 80053; 80164; 80177; 81003; 82803; 83605; 83690; 83735; 84484; 85025; 85379; 87040; 87086; 87502; 87899; 93005; 96361; 96374; 99284; A9270-GY; G0378; J0696

== ENCOUNTER 2017-12-28 19:27 | Emergency (ER) | payer BC, MEDICAID ==
[2017-12-28] MEDS ORDERED: LORazepam TAB(*) 1 MG PO ONE (20:18)
[2017-12-28] MEDS ORDERED: Haloperidol TAB* 5 MG PO ONE (20:19)
[2017-12-28 20:54] LABS: ABS Basophils 0 10^3/ul (0-0.2); ABS Eosinophils 0.3 10^3/ul (0-0.6); ABS Lymphocytes 2.9 10^3/ul (1.0-4.8); ABS Monocytes 0.8 10^3/ul (0-0.8); ABS Neutrophils 3.1 10^3/ul (1.5-7.7); ABS Nucleated RBC 0 10^3/ul; Hematocrit 40 % (42-52); Lymphocyte % 40.2 % (25-47); Mean Corpuscular HGB Conc 36 g/dl (31-36); Mean Corpuscular Hemoglobin 30 pg (27-31); Mean Corpuscular Volume 86 fL (80-94); Mean Platelet Volume 8 um3 (7.4-10.4); Nucleated Red Blood Cells % 0.1; Platelet Count 157 10^3/ul (150-450); Red Blood Count 4.61 10^6/ul (4.0-5.4); Red Cell Distribution Width 13 % (10.5-15); White Blood Count 7.2 10^3/ul (3.5-10.8)
[2017-12-28 21:05] LABS: EGFR Non-African American 162.4 (>60)
[2017-12-28 23:17] VITALS: BP 000/00
--- NOTE | 2017-12-31 04:40 | ED ---
Mg Oates Abhishek, scribed for Albina Pike MD on 12/28/17 at 2028 . Psychiatric Complaint - HPI Summary HPI Summary: LEVEL 5 CAVEAT This patient is a 22 year old M [facility] accompanied by body stylist with a chief complaint of agitation and confusion since today. The pts hx is reported by the body stylist and the HPI is unable to be obtained by the pt because the pt is nonverabal and not listening to commands. Pt lives in a home with 7 others. According to the pts body stylist, the pts behavior is different than normal (as stated by the chief complaint). Pts body stylist also reports kicking and punching. Medication reported by body stylist and reviewed. Pt is unable to walk with assistance and is sitting on wheelchair (upon evaluation). - History Of Current Complaint Chief Complaint: EDGeneral Time Seen by Provider: 12/28/17 20:12 - Allergies/Home Medications Allergies/Adverse Reactions: Allergies Allergy/AdvReac Type Severity Reaction Status Date / Time clarithromycin [From Biaxin] Allergy Rash Verified 12/28/17 19:33 PMH/Surg Hx/FS Hx/Imm Hx Endocrine/Hematology History: Reports: Hx Blood Disorders, Hx Systemic Lupus Erythematosus Denies: Hx Sickle Cell Disease, Hx Anemia Cardiovascular History: Reports: Hx Hypertension Denies: Hx Aneurysm, Hx Angioplasty, Hx Auto Implanted Cardiovert Defib, Hx Cardiac Arrest, Hx Cardiomegaly, Hx Congenital Heart Disease, Hx Congestive Heart Failure, Hx Pacemaker/ICD, Hx Rheumatic Fever, Hx Valvular Heart Disease, Other Cardiovascular Problems/Disorders Respiratory History: Denies: Hx Asthma, Hx Chronic Bronchitis, Hx Pneumonia, Hx Pulmonary Embolism GI History: Denies: Hx Cirrhosis, Hx Diverticulosis, Hx Hiatal Hernia, Hx Jaundice History: Reports: Other Problems/Disorders - bleeding with taylor Denies: Hx Benign Prostatic Hyperplasia, Hx Chronic Renal Failure Musculoskeletal History: Denies: Hx Bursitis, Hx Osteoporosis, Other Musculoskeletal History Sensory History: Reports: Other Sensory Impairments - Autism Denies: Hx Contacts or Glasses, Hx Eye Injury, Hx Hearing Aid Opthamlomology History: Reports: Other Sensory Impairments - Autism Denies: Hx Contacts or Glasses, Hx Eye Injury Neurological History: Reports: Hx Developmental Delay, Hx Seizures, Other Neuro Impairments/Disorders - autism Psychiatric History: Reports: Hx Anxiety, Hx Autism, Hx Depression, Other Psychiatric Issues/Disorders - Severe Autism Denies: Hx Panic Disorder, Hx Community Mental Health Tx, Hx Schizophrenia - Cancer History Hx Hematologic Symptoms: No Hx Chemotherapy: No - Surgical History Surgery Procedure, Year, and Place: hernia repair x2 at 3mo old, tail bone absyss drained Hx Anesthesia Reactions: No - Immunization History Date of Tetanus Vaccine: unk Date of Influenza Vaccine: unk Infectious Disease History: No Infectious Disease History: Denies: Hx of Known/Suspected MRSA, Hx Shingles, Hx Tuberculosis, History Other Infectious Disease, Traveled Outside the [place] in Last 30 Days - Family History Known Family History: Positive: Unknown - Level 5 Caveat due to autism Family History: LEVEL 5 CAVEAT - NON-VERBAL SECONDARY TO AUTISM - Social History Occupation: Unemployed Lives: Residential Alcohol Use: None Hx Substance Use: No Substance Use Type: Reports: None Hx Tobacco Use: No Smoking Status (MU): Never Smoked Tobacco Review of Systems - ROS Summary Review of Systems Summary: LEVEL 5 CAVEAT Psychological: Other - Aggitation, confusion, "aggresive behavior such as hitting, punching and kicking" All Other Systems Reviewed And Are Negative: No Physical Exam - Summary Physical Exam Summary: LEVEL 5 CAVEAT VITAL SIGNS: Reviewed. GENERAL: Pt is staring, not listening to commands HEAD AND FACE: No signs of trauma. No ecchymosis, hematomas or skull depressions. No sinus tenderness. EYES: PERRLA, EOMI x 2, No injected conjunctiva, no nystagmus. EARS: Hearing grossly intact. Ear canals and tympanic membranes are within normal limits. MOUTH: Oropharynx within normal limits. NECK: Supple, trachea is midline, no adenopathy, no JVD, no carotid bruit, no c- spine tenderness, neck with full ROM. CHEST: Symmetric, no tenderness at palpation LUNGS: Clear to auscultation bilaterally. No wheezing or crackles. CVS: Regular rate and rhythm, S1 and S2 present, no murmurs or gallops appreciated. ABDOMEN: Soft, non-tender. No signs of distention. No rebound no guarding, and no masses palpated. Bowel sounds are normal. EXTREMITIES: FROM in all major joints, no edema, no cyanosis or clubbing. NEURO: Slight shaking, not verbal SKIN: Dry and warm Triage Information Reviewed: Yes Vital Signs On Initial Exam: Initial Vitals Temp Pulse Resp BP Pulse Ox 96.5 F 102 18 0/0 97 12/28/17 19:29 12/28/17 19:29 12/28/17 19:29 12/28/17 19:29 12/28/17 19:29 Vital Signs Reviewed: Yes Diagnostics - Vital Signs Vital Signs Temp Pulse Resp BP Pulse Ox 12/28/17 19:29 96.5 F 102 18 0/0 97 - Laboratory Result Diagrams: 12/28/17 20:41 12/28/17 20:41 Lab Statement: Any lab studies that have been ordered have been reviewed, and results considered in the medical decision making process. Course/Dx - Course Course Of Treatment: the pt is a 22 M with a chief complaint of aggitation and confusion. The HPI was unable to be obtained by the pt because the pt is non- verbal and the HPI was obtained by body stylist. Pt is stated to be non-verbal by his body stylist and hx is reported by pt's body stylist. The pt's body stylist reported uncommon aggressive behavior since today described as "punching and kicking" behavior. The pt will be dx of autism and will be d/c to home. - Differential Dx/Clinical Impression Provider Diagnosis: Autism Discharge - Discharge Plan Condition: Stable Disposition: HOME Referrals: Librado TODD,Tomas Alfred [Primary Care Provider] - Additional Instructions: Per completion of a mental health evaluation, you are cleared for release and do not require inpatient psychiatric hospitalization at this time. Please go to nearest emergency room or call 911 if safety concerns arise or condition worsens. [facility]........[phone] Suicide Prevention and Crisis Services........................[phone] National Suicide Prevention Lifeline............................178-948-BMTX ( 0556) [facility].......................[phone] Alcoholics Anonymous...............................................[phone] [facility]..............[phone] [facility] Police..............................................[phone] The documentation as recorded by the Mg stoner Abhishek accurately reflects the service I personally performed and the decisions made by , Albina Pike MD.
== END 2017-12-28 23:16 | disposition home or self-care (01) ==
LOC: ED 19:27
DX: F84.0 Autistic disorder (principal); R62.50 Unspecified lack of expected normal physiological development in childhood
CPT/HCPCS: 36415; 80053; 80164; 80320; 80329; 84443; 85025; 99283; A9270-GY; G0480

== ENCOUNTER 2018-07-16 12:15 | Emergency (ER) | payer BC, MEDICAID ==
[2018-07-16] MEDS ORDERED: diPHENhydraMINE IV* 50 MG/ML 1 ml VIAL (BENADRYL) IM ONE (12:30)
[2018-07-16] MEDS ORDERED: Haloperidol INJ IV/IM* 5 MG/ML AMP IM ONE (12:30)
[2018-07-16] MEDS ORDERED: LORazepam INJ* 2 MG/ML 1 ML VIAL IM ONE (12:31)
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
[2018-07-16 13:06] LABS: ABS Basophils 0 10^3/ul (0-0.2); ABS Eosinophils 0.2 10^3/ul (0-0.6); ABS Lymphocytes 1.4 10^3/ul (1.0-4.8); ABS Monocytes 0.4 10^3/ul (0-0.8); ABS Neutrophils 1.8 10^3/ul (1.5-7.7); ABS Nucleated RBC 0 10^3/ul; Eosinophil % 4.4 % (0-6); Hematocrit 42 % (42-52); Hemoglobin 14.6 g/dl (14.0-18.0); Lymphocyte % 37.1 % (25-47); Mean Corpuscular HGB Conc 35 g/dl (31-36); Mean Corpuscular Hemoglobin 31 pg (27-31); Mean Corpuscular Volume 88 fL (80-94); Mean Platelet Volume 8.6 um3 (7.4-10.4); Nucleated Red Blood Cells % 0.1; Platelet Count 129 10^3/ul (150-450); Red Blood Count 4.78 10^6/ul (4.00-5.40); Red Cell Distribution Width 12 % (10.5-15); White Blood Count 3.9 10^3/ul (3.5-10.8)
[2018-07-16 13:21] LABS: EGFR Non-African American 185.4 (>60)
[2018-07-16 13:54] LABS: Urine Appearance Clear; Urine Blood Negative (Negative); Urine Color Yellow; Urine Ketones Trace (Negative); Urine Protein Negative (Negative); Urine Specific Gravity 1.015 (1.010-1.030); Urine Urobilinogen Negative (Negative)
[2018-07-16 18:59] VITALS: BP 141/81
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
== END 2018-07-16 18:58 | disposition home or self-care (01) ==
LOC: ED 12:15
DX: R41.82 Altered mental status, unspecified (principal); F91.1 Conduct disorder, childhood-onset type; E72.4 Disorders of ornithine metabolism; F84.0 Autistic disorder; I10 Essential (primary) hypertension
CPT/HCPCS: 36415; 80053; 80164; 80307; 80320; 80329; 81003; 82140; 82550; 84443; 85025; 96372; 99285; G0480; J1200; J1630; J2060

== ENCOUNTER 2018-07-17 14:30 | Emergency (ER) | payer BC, MEDICAID ==
[2018-07-17 16:40] VITALS: BP 00/0
--- NOTE | 2018-07-17 17:02 | ED ---
Complex/Multi-Sys Presentation - HPI Summary HPI Summary: Patient is a 23 y/o M brought to ED for a medical recheck. He has autism and is a level 5 caveat, HPI gathered from caregivers. He was here yesterday for aggressive behavior and medication level check. Patient was admitted to [facility] yesterday and discharged. Discharge paperwork from yesterday told him to follow up with PCP today. It was not possible to get an appointment for the patient with his usual doctors, so the patient was brought here. Caretakers note that patient is calmer today. - History Of Current Complaint Chief Complaint: EDGeneral Time Seen by Provider: 07/17/18 16:02 Hx Obtained From: Family/Hospice Fellow - caretakers Hx From Patient Unobtainable Due To: Other - patient is autistic; level 5 caveat Associated Signs And Symptoms: Positive: Other - here for medical recheck - Allergies/Home Medications Allergies/Adverse Reactions: Allergies Allergy/AdvReac Type Severity Reaction Status Date / Time clarithromycin [From Biaxin] Allergy Rash Verified 07/17/18 14:58 PMH/Surg Hx/FS Hx/Imm Hx Endocrine/Hematology History: Reports: Hx Blood Disorders, Hx Systemic Lupus Erythematosus Denies: Hx Sickle Cell Disease, Hx Anemia Cardiovascular History: Reports: Hx Hypertension Denies: Hx Aneurysm, Hx Angioplasty, Hx Auto Implanted Cardiovert Defib, Hx Cardiac Arrest, Hx Cardiomegaly, Hx Congenital Heart Disease, Hx Congestive Heart Failure, Hx Pacemaker/ICD, Hx Rheumatic Fever, Hx Valvular Heart Disease, Other Cardiovascular Problems/Disorders Respiratory History: Denies: Hx Asthma, Hx Chronic Bronchitis, Hx Pneumonia, Hx Pulmonary Embolism GI History: Denies: Hx Cirrhosis, Hx Diverticulosis, Hx Hiatal Hernia, Hx Jaundice History: Reports: Other Problems/Disorders - bleeding with taylor Denies: Hx Benign Prostatic Hyperplasia, Hx Chronic Renal Failure Musculoskeletal History: Denies: Hx Bursitis, Hx Osteoporosis, Other Musculoskeletal History Sensory History: Reports: Other Sensory Impairments - Autism Denies: Hx Contacts or Glasses, Hx Eye Injury, Hx Hearing Aid Opthamlomology History: Reports: Other Sensory Impairments - Autism Denies: Hx Contacts or Glasses, Hx Eye Injury Neurological History: Reports: Hx Developmental Delay, Hx Seizures, Other Neuro Impairments/Disorders - autism Psychiatric History: Reports: Hx Anxiety, Hx Autism, Hx Depression, Other Psychiatric Issues/Disorders - Severe Autism Denies: Hx Panic Disorder, Hx Community Mental Health Tx, Hx Schizophrenia - Cancer History Hx Hematologic Symptoms: No Hx Chemotherapy: No - Surgical History Surgery Procedure, Year, and Place: hernia repair x2 at 3mo old, tail bone absyss drained Hx Anesthesia Reactions: No - Immunization History Date of Tetanus Vaccine: unk Date of Influenza Vaccine: unk Infectious Disease History: No Infectious Disease History: Denies: Hx of Known/Suspected MRSA, Hx Shingles, Hx Tuberculosis, History Other Infectious Disease, Traveled Outside the [place] in Last 30 Days - Family History Known Family History: Positive: Unknown - Level 5 Caveat due to autism Family History: LEVEL 5 CAVEAT - NON-VERBAL SECONDARY TO AUTISM - Social History Alcohol Use: None Hx Substance Use: No Substance Use Type: Reports: None Hx Tobacco Use: No Smoking Status (MU): Never Smoked Tobacco Review of Systems Positive: Other - here for medical re-check All Other Systems Reviewed And Are Negative: No - Comments Additional Review of Systems Comments: level 5 caveat due to autism Physical Exam - Summary Physical Exam Summary: Appearance: The patient is well-nourished in no acute pain. He appears mildly agitated. Level 5 caveat. Skin: The skin is warm and dry and skin color reflects adequate perfusion. HEENT: The head is normocephalic and atraumatic. The pupils are equal and reactive. The conjunctivae are clear and without drainage. Nares are patent and without drainage. Mouth reveals moist mucous membranes and the throat is without erythema and exudate. The external ears are intact. The ear canals are patent and without drainage. The tympanic membranes are intact. Neck: The neck is supple with full range of motion and non-tender. There are no carotid bruits. There is no neck vein distension. Respiratory: Chest is non-tender. Lungs are clear to auscultation and breath sounds are symmetrical and equal. Cardiovascular: Heart is regular rate and rhythm. There is no murmur or rub auscultated. There is no peripheral edema and pulses are symmetrical and equal. Abdomen: The abdomen is soft and non-tender. There are normal bowel sounds heard in all four quadrants and there is no organomegaly palpated. Musculoskeletal: There is no back tenderness noted. Extremities are non-tender with full range of motion. There is good capillary refill. There is no peripheral edema or calf tenderness elicited. Neurological: The patient has symmetrical motor strength in all four extremities. Cranial nerves are grossly intact. Deep tendon reflexes are symmetrical and equal in all four extremities. Triage Information Reviewed: Yes Vital Signs On Initial Exam: Initial Vitals Temp Pulse Resp BP Pulse Ox 98.3 F 112 20 00/00 97 07/17/18 14:35 07/17/18 14:35 07/17/18 14:35 07/17/18 14:35 07/17/18 14:35 Vital Signs Reviewed: Yes Diagnostics - Vital Signs Vital Signs Temp Pulse Resp BP Pulse Ox 07/17/18 16:39 0 F 0 0 00/0 0 07/17/18 14:35 98.3 F 112 20 00/00 97 - Laboratory Lab Statement: Any lab studies that have been ordered have been reviewed, and results considered in the medical decision making process. Re-Evaluation - Re-Evaluation First Eval Re-Evaluation Time: 16:20 Change: Unchanged Comment: Informed patient's caretakers he can be discharged with no workup. Complex Multi-Symp Course/Dx Course Of Treatment: Mansoor was brought back by staff with a concern that it had been recommended that he follow up today with a physician and they were unable to get an appointment. He has been behaving better today and has not received his PRN Ativan. I spoke with the hospitalist service who saw him yesterday and he felt that he was safe for discharge to return if anything change and he became aggressive again otherwise follow up next week. - Diagnoses Provider Diagnoses: Autism - Physician Notifications Discussed Care Of Patient With: Analisa León Time Discussed With Above Provider: 16:16 Instructed by Provider To: Other - Dr. León was consulted on patient's case at 1616 as she was admitting physician previously. She states patient can be discharged to home with no problems. Discharge - Sign-Out/Discharge Documenting (check all that apply): Patient Departure - discharge - Discharge Plan Condition: Stable Disposition: HOME Patient Education Materials: Autism Spectrum Disorder (ED) Referrals: Librado TODD,Tomas Alfred [Primary Care Provider] - 1 Week Additional Instructions: Return to ED for any changing or worsening Sx. Follow up with primary care physician sometime next week. - Billing Disposition and Condition Condition: STABLE Disposition: Home - Attestation Statements Document Initiated by Scribe: Yes Documenting Scribe: Aly Mackenzie Provider For Whom Scribe is Documenting (Include Credential): Virgilio Felipe MD Scribe Attestation: I, Aly Mackenzie, scribed for Virgilio Felipe MD on 07/17/18 at 1802. Scribe Documentation Reviewed: Yes Provider Attestation: The documentation as recorded by the scribeAly accurately reflects the service I personally performed and the decisions made by me, Virgilio Felipe MD
== END 2018-07-17 16:30 | disposition home or self-care (01) ==
LOC: ED 14:30
DX: F84.0 Autistic disorder (principal); Z88.1 Allergy status to other antibiotic agents
CPT/HCPCS: 99282